=== PATIENT | female | born 1940 | race Caucasian/White ===

== ENCOUNTER 2019-11-10 21:16 | Emergency (ER) | payer MEDICARE, SELFPAY ==
[2019-11-10 21:29] VITALS: BP 132/65; PULSE 70; RESP 16; TEMP 37; O2SAT 97; BMI 34.1
--- NOTE | 2019-11-10 21:35 | CT_ITS ---
PROCEDURE: CT CERVICAL SPINE WO CON CLINICAL INDICATION: head/ear pain Neck pain, neck stiffness COMPARISON: No exams were available for comparison TECHNIQUE: Axial images obtained with sagittal and coronal reformats. All CT scans at the facility use one or more dose reduction, viz: automated exposure control, ma/kV adjustment per patient size (including targeted exams where dose is matched to indication, i.e. head), or iterative reconstruction technique. Axial spiral CT scanning performed of the cervical spine beginning at the base of the skull and continuing to the upper T-spine. 3-D multiplanar reconstruction with 3-D manipulation of volumetric data set in image rendering was completed by the radiologist and/or technologist with the supervision of the radiologist on independent workstation. FINDINGS: No fracture or dislocation. Multilevel cervical spondylosis. C2-C3: Mild right foraminal narrowing from uncovertebral hypertrophy with mild degenerative disc disease C3-C4: Degenerative disc disease C4-C5: Degenerative disc disease with subchondral cystic changes with bilateral foraminal narrowing from facet and uncovertebral hypertrophy. C5-C6: Degenerative disc disease with mild right foraminal narrowing. C6-C7: Degenerative disc disease. Sclerotic foci are present within the superior and posterior aspect of C7 vertebral body in the anterior aspect of C6 vertebral body. These may be due to bone islands. Bilateral calcified tonsillar crypts Severe TMJ arthritic changes bilaterally IMPRESSION: 1. No acute fracture. 2. Multilevel cervical spondylosis as detailed above. Dictated by: Paul Tolentino MD 11/11/2019 08:51 Electronically signed by Paul Tolentino MD in [place] 11/11/2019 08:51
--- NOTE | 2019-11-10 21:35 | CT_ITS ---
PROCEDURE: CT HEAD/BRAIN WO CON CLINICAL INDICATION: head/ear pain Headache COMPARISON: [facility] CT HEAD W/O CONTRAST from 10/16/2016 TECHNIQUE: Axial images obtained. All CT scans at the facility use one or more dose reduction, viz: automated exposure control, ma/kV adjustment per patient size (including targeted exams where dose is matched to indication, i.e. head), or iterative reconstruction technique. FINDINGS: No midline shift, mass effect, intracranial hemorrhage, hydrocephalus, or extra-axial fluid collection is evident. There is generalized atrophy with hypoattenuation of the periventricular white matter consistent with microangiopathic changes.. There is a partially calcified extra-axial mass in the right temporal region extending posteriorly from the sphenoid bone measuring 1.6 cm by 1.3 cm consistent with a partially calcified meningioma without mass effect. This is slightly increased in size previously measuring 1.4 x 0.9 cm. The calvarium has an unremarkable appearance. No mastoid effusion. No sinus air-fluid level. IMPRESSION: 1. No acute intracranial findings. 2. Partially calcified meningioma in the anterior aspect of the middle cranial fossa on the right which is slightly increased in size compared to 10/16/2016 but without edema or mass effect. Dictated by: Paul Tolentino MD 11/10/2019 23:16 Electronically signed by Paul Tolentino MD in [place] 11/10/2019 23:16
--- NOTE | 2019-11-10 21:38 | XR_ITS ---
PROCEDURE: XR CHEST 2V CLINICAL HISTORY: neck pain/jaw pain COMPARISON: CXR CHEST(2 VIEWS-NOT PORTABLE) from 10/16/2016 [id number] XR ribs RT min 3V w CXR1V from 04/27/2018 CXR2V XR chest 2V from 04/27/2018 FINDINGS: The cardiomediastinal silhouette and pulmonary vascularity are within normal limits. Chronic blunting of the right CP angle with atelectatic or fibrotic change in the right lung base laterally which does not appear significantly changed. No new areas of consolidation. No acute bony abnormalities. IMPRESSION: Chronic changes in the right lung base. No change with no acute finding Dictated by: Paul Tolentino MD 11/10/2019 23:18 Electronically signed by Paul Tolentino MD in [place] 11/10/2019 23:18
[2019-11-10 21:45] LABS: Basophils # 0.1 K/mm3 (0-0.2); Basophils % 0.7 % (0.1-2.0); Eosinophils # 0.2 K/mm3 (0.0-0.4); Eosinophils % 1.6 % (0.1-12.0); Hematocrit 36.7 % (37.0-47.0); Hemoglobin 12.3 g/dL (12.2-16.2); Lymphocytes # 1.9 K/mm3 (0.7-4.5); Lymphocytes % 20.5 % (10-50); Mean Corpuscular HGB Conc 33.4 g/dL (31.8-35.4); Mean Corpuscular Hemoglobin 31.2 pg (27.0-31.2); Mean Corpuscular Volume 93.7 fl (81-99); Mean Platelet Volume 7.4 fl (7.4-10.4); Monocytes # 0.6 K/mm3 (0.1-1.0); Monocytes % 6.4 % (1.7-9.3); Neutrophils # 6.6 K/mm3 (1.8-7.8); Neutrophils % 70.8 % (37.0-80.0); Platelet Count 268 K/mm3 (142-424); Red Blood Count 3.92 M/mm3 (4.20-5.40); Red Cell Distribution Width 13.6 % (11.5-17.5); White Blood Count 9.4 K/mm3 (4.8-10.8)
[2019-11-10 21:48] LABS: Chloride 106 mmol/L (98-107); Potassium 3.8 mmoL/L (3.5-5.1); Sodium 141 mmol/L (136-145)
[2019-11-10 21:51] LABS: Alanine Aminotransferase 6 U/L (12-78); Albumin/Globulin Ratio 1.1 (1.1-1.8); Alkaline Phosphatase 90 U/L (38-126); Anion Gap 9.8 mEq/L (5-15); Aspartate Amino Transferase 23 U/L (14-36); Bilirubin,Total 0.5 mg/dl (0.2-1.3); Blood Urea Nitrogen 22 mg/dl (7-17); Carbon Dioxide 29 mmol/L (22.0-30.0); Creatinine Clearance Estimated 64 mL/min (50-200); Estimated Glomerular Filt Rate 53 ml/min (>60); GFR (African American) 65 ML/MIN (>60); Globulin 3.5 g/dL (1.3-3.2); Total Protein,Serum 7.5 g/dl (6.3-8.2)
--- NOTE | 2019-11-10 21:51 | PC.NURSE ---
pt ambulatory and upright at this time without incident.
[2019-11-10 21:52] LABS: Glucose 102 mg/dl (74-100)
[2019-11-10 21:57] LABS: C-Reactive Protein 13.2 mg/L (0-4)
[2019-11-10 22:09] LABS: Troponin I < 0.01 ng/ml (0.00-0.034)
--- NOTE | 2019-11-10 22:09 | PC.NURSE ---
return from rad
--- NOTE | 2019-11-10 22:13 | ECG_ITS ---
APPROVED REPORT Exam: Resting ECG HR:72 bpm ECG Measurements Heart Rate 72 AXES [place] 164 P 70 QRSd 68 QRS -43 QT 398 T 1 QTc 435 <Conclusion> Sinus rhythm with occasional premature ventricular complexes and fusion complexes Left axis deviation Low voltage QRS Inferior changes - old Old anteroseptal changes Abnormal ECG Electronically signed by : Anthony Dc, 11/12/2019 14:14:47
[2019-11-10 22:18] LABS: Erythrocyte Sedimentation Rate 95 mm/hr (0-30)
[2019-11-10 22:20] VITALS: BP 124/59; PULSE 94; O2SAT 97
[2019-11-10 23:00] VITALS: BP 127/61; PULSE 87; RESP 16; O2SAT 98
--- NOTE | 2019-11-10 23:37 | HMH.EDNECK ---
ED Disposition Clinical Impression: Cervical radicular pain, Elevated erythrocyte sedimentation rate, Meningioma Disposition: Home, Self-Care Condition on Discharge: Good Instructions: DI for Neck Pain Additional Instructions: use meds and see pcp for follow up Prescriptions: predniSONE [Prednisone 20mg Tab] 20 mg PO BID #10 tab Transmission Status: Pending to [facility] Referrals: Azael Pritchard [Primary Care Provider] - - Critical Care Critical Care Time: No Attestation: On 11/10/19, the high probability of a clinically significant, sudden or life threatening deterioration of the following system(s) required my full and direct attention, intervention and personal management. The time I documented below is in addition to time spent performing reported procedures but includes the following listed in this critical care notation. Medical Decision Making - Medical Records Medical records reviewed: Yes: I reviewed the patient's medical records. - Angel Inquiry Pt receiving controlled substance: No Vital Signs: 11/10/19 21:29 11/10/19 22:20 Temperature 98.6 F Temperature Source Oral Pulse Rate [Right Brachial] 70 94 H Respiratory Rate 16 Blood Pressure [Right Arm] 132/65 124/59 L Blood Pressure Mean [Right Arm] 87 80 Blood Pressure Source [Right Arm] Automatic Cuff Automatic Cuff Blood Pressure Position [Right Arm] Sitting Supine 02 Sat by Pulse Oximetry 97 97 Oxygen Delivery Method Room Air Room Air - Lab Data Lab results reviewed: Yes: I reviewed the patient's lab results. Lab Results 11/10/19 21:35: WBC 9.4, RBC 3.92 L, Hgb 12.3, Hct 36.7 L, MCV 93.7, MCH 31.2, MCHC 33.4, RDW 13.6, Plt Count 268, MPV 7.4, Neut % (Auto) 70.8, Lymph % (Auto) 20.5, [place] % (Auto) 6.4, Eos % (Auto) 1.6, Baso % (Auto) 0.7, Neut # (Auto) 6.6, Lymph # (Auto) 1.9, [place] # (Auto) 0.6, Eos # (Auto) 0.2, Baso # (Auto) 0.1 11/10/19 21:35: Sodium 141, Potassium 3.8, Chloride 106, Carbon Dioxide 29, Anion Gap 9.8, BUN 22 H, Creatinine 1.00, Estimated Creat Clear 64, Estimated GFR 53 L, Est GFR ( Amer) 65, Glucose 102 H, Calcium 10.0, Total Bilirubin 0.5, AST 23, ALT 6 L, Alkaline Phosphatase 90, Troponin I < 0.01, C-Reactive Protein 13.2 H, Total Protein 7.5, Albumin 4.0, Globulin 3.5 H, Albumin/Globulin Ratio 1.1 11/10/19 21:35: ESR 95 H Result diagrams: 11/10/19 21:35 11/10/19 21:35 Orders (Tests/Meds): ED MEDICATIONS Generic Name Dose Route Start Last Admin Trade Name Freq PRN Reason Stop Dose Admin Sodium Chloride 1,000 mls @ 999 mls/hr 11/10/19 23:45 11/10/19 23:40 Sod Chlor 0.9% 1000ml Bag IV 11/11/19 00:45 999 mls/hr .Q1H1M CASI Administration Discontinued Medications Generic Name Dose Route Start Last Admin Trade Name Freq PRN Reason Stop Dose Admin Ketorolac Tromethamine 15 mg 11/10/19 23:38 11/10/19 23:40 Toradol 30mg/Ml Vial IV 11/10/19 23:39 15 mg ONCE ONE Administration Methylprednisolone Sodium Succinate 125 mg 11/10/19 23:38 11/10/19 23:40 Solu-Medrol 125mg/2ml Vial IV 11/10/19 23:39 125 mg ONCE ONE Administration Morphine Sulfate 1 mg 11/10/19 23:38 11/10/19 23:40 Morphine 4mg/Ml Syringe IV 11/10/19 23:39 1 mg ONCE ONE Administration ORDERS Category Date Time Status CT cervical spine wo con Stat Cat Scan 11/10/19 21:35 Taken Troponin I Q3H Lab 11/11/19 00:45 Ordered Troponin I Q3H Lab 11/11/19 03:45 Ordered - Radiology Data #1 Image(s): Chest Image Reviewed: Yes I reviewed the patient's radiology image Preliminary Findings: Normal/NAD - CT Data CT Scan: Head, C-Spine Time Received: 00:[address] Reviewed: Yes: I have viewed the radiologist's interpretation Preliminary Findings: Abnormal (see report ) - ECG Data Tracing #1 Normal Sinus Rhythm: Yes Ischemic changes: non-specific ST-T wave changes Neck Pain/Injury HPI - General Chief Complaint: Ear Stated Complaint: NECK PAIN Time Seen by Prov
[2019-11-11] VITALS: BP 131/71; PULSE 84; RESP 16; O2SAT 97
[2019-11-11 00:34] VITALS: BP 123/64; PULSE 83; O2SAT 97
--- NOTE | 2019-11-11 00:39 | INFXCTL.NOTE ---
reverse soft C-Collar place on pt
[2019-11-11 00:44] VITALS: BP 108/79; PULSE 71; RESP 16; TEMP 36.8; O2SAT 97
== END 2019-11-11 00:48 | disposition home or self-care (01) ==
PROVIDERS: Emergency Provider Emergency Medicine; PCP Internal Medicine
DX: M54.2 Cervicalgia (principal); D32.9 Benign neoplasm of meninges, unspecified; R70.0 Elevated erythrocyte sedimentation rate; G20 Parkinson's disease; K21.9 Gastro-esophageal reflux disease without esophagitis; I10 Essential (primary) hypertension; Z79.899 Other long term (current) drug therapy; Z88.0 Allergy status to penicillin; Z88.2 Allergy status to sulfonamides; Z85.038 Personal history of other malignant neoplasm of large intestine; Z90.49 Acquired absence of other specified parts of digestive tract; Z90.79 Acquired absence of other genital organ(s)
CPT/HCPCS: 70450; 71046; 72125; 80053; 84484; 85025; 85651; 86140; 93005; 96365; 96375; 99284

== ENCOUNTER → 2019-12-06 11:18 | Outpatient (CLI) | payer MEDICARE, SELFPAY ==
[2019-12-06 12:21] LABS: Chloride 98 mmol/L (98-107); Sodium 136 mmol/L (136-145)
[2019-12-06 12:24] LABS: Blood Urea Nitrogen 32 mg/dl (7-17); Calcium 9.7 mg/dl (8.4-10.2); Carbon Dioxide 34 mmol/L (22.0-30.0); Estimated Glomerular Filt Rate 60 ml/min (>60); GFR (African American) 73 ML/MIN (>60); Glucose 76 mg/dl (74-100)
[2019-12-06 12:30] LABS: Basophils % 0.2 % (0.1-2.0); Eosinophils % 0.5 % (0.1-12.0); Hematocrit 41.1 % (37.0-47.0); Hemoglobin 13.7 g/dL (12.2-16.2); Lymphocytes # 2.1 K/mm3 (0.7-4.5); Lymphocytes % 25.3 % (10-50); Mean Corpuscular HGB Conc 33.4 g/dL (31.8-35.4); Mean Corpuscular Hemoglobin 31.3 pg (27.0-31.2); Mean Corpuscular Volume 93.8 fl (81-99); Mean Platelet Volume 7.1 fl (7.4-10.4); Monocytes # 0.6 K/mm3 (0.1-1.0); Monocytes % 6.9 % (1.7-9.3); Neutrophils # 5.7 K/mm3 (1.8-7.8); Neutrophils % 67.1 % (37.0-80.0); Platelet Count 291 K/mm3 (142-424); Red Blood Count 4.38 M/mm3 (4.20-5.40); Red Cell Distribution Width 13.8 % (11.5-17.5); White Blood Count 8.5 K/mm3 (4.8-10.8)
[2019-12-06 12:49] LABS: Coronavirus 19 IgG Antibody Negative (Negative); Coronavirus 19 IgM Antibody Negative (Negative)
== END ==
PROVIDERS: Visit Provider Surgery
DX: R70.0 Elevated erythrocyte sedimentation rate (principal); Z01.818 Encounter for other preprocedural examination
CPT/HCPCS: 36415; 80048; 85025; 86328

== ENCOUNTER 2019-12-07 08:03 | Day surgery (SDC) | payer MEDICARE, SELFPAY ==
--- NOTE | 2019-12-05 12:32 | SUR.PREOP ---
12/05/2019 @ 1230--PHONE CALL MADE TO PATIENT. PATIENT UNDERSTANDS THAT LAB WORK AND COVID TESTING NEEDS TO BE COMPLETED @ 1100 ON 12/06/2019. PATIENT UNDERSTANDS IF LAB WORK AND COVID-19 TESTS ARE NOT COMPLETED BY 12PM ON THAT DATE, THE SURGERY SCHEDULED WILL BE CANCELLED AND RESCHEDULED FOR ANOTHER TIME.
[2019-12-07] VITALS (11 sets, daily range): BP systolic 122–168; BP diastolic 73–90; PULSE 63–77; RESP 16–18; TEMP 36.3–36.6; O2SAT 93–98; BMI 35.2
--- NOTE | 2019-12-07 09:17 | HMH.ANESCL ---
[facility] Anesthesia Checklist - Patient Identification Patient Identification: Arm Band - Structural Data Admitted From: Home Planned Operative Procedure/s: temporal artery biopsy Consent for Planned Operative Procedure(s) Verified: Yes Verified Documents: Surgical Consent, History and Physical - NPO Status Verified Time NPO: 00:00 - Additional verifications Anesthesia Reactions: Yes (hard time waking up after) Hx Blood Transfusions: Yes Blood Transfusion Reaction: No - Airway Assessment C-Spine Mobility Assessed: Yes TMJ Mobility Assessed: Yes Dentition: Good Dentition (upper dentures, lower intact) - Neurological Assessment Level of Consciousness: Awake, Alert - Anesthesia Plan Anesthesia Risk discussed: Yes Anesthesia Plan: Verified ASA Class: III Anesthesia Type: General [facility] History I have reviewed the patient's past medical history: Yes Medical History: Reports:: Atrial Fibrillation (hx afib after hernia repair), Cancer (colon), Depression, Gastroesophageal Reflux Disease(GERD), Lung Disease (homar-cpap has) Denies:: Diabetes Mellitus Type 1, Diabetes Mellitus Type 2, Internal Pacemaker, MRSA, Seizures *Have you ever received a pneumonia vaccine?: No *Have you received a flu vaccine this season?: No Other Medical History: Reports: Thyroid Disease, Other. Denies: Blood Transfusion Reaction Anesthesia experience/problems:: nac Other Surgeries: Yes: Cancer Surgery, Cholecystectomy, Colonoscopy, Colon Resection, Hysterectomy-Total, Other. No: Appendectomy, , Pacemaker, Thyroidectomy Amputation: No Fractures: No - *Social History Educational Level: Completed High School Smoking Status: Never smoker Alcohol Intake: never Substance Use Type: denies use *Occupational Status:: retired Housing: house Household Members: none *Travel in the last 8 weeks: None - Psychiatric History Pschychiatric History:: Reports:: Depression Family Hx:: Cancer, Hypertension
--- NOTE | 2019-12-07 13:32 | HMH.ANESI ---
[facility] Anesthesia Record Part I Intake, IV Amount: 900 Estimated blood loss (mL): 10 Urine output (mL): 0 Blood Products used (#): none Blood Pressure: 168/89 SaO2: 93 Pulse Rate: 77 Respiratory Rate: 18 Temperature: 97.5 F Patient is:: Drowsy, Stable Stable to PACU at:: 13:29
--- NOTE | 2019-12-07 13:56 | P.OP_ITS ---
Date of procedure: 12/07/19 Pre-op Diagnosis:: Elevated sed rate Post-op Diagnosis:: Same Procedure performed:: Right temporal artery biopsy Surgeon:: Yaakov Lan MD [employer] TE[employer]ER:: Anthony Linares Anesthesia: LMA Estimated blood loss (mL): 30 Clinical Note:: Patient is an 79-year-old female with history of Parkinson's and meningioma referred by Dr. Azael Pritchard for temporal artery biopsy. 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 Recently she has had some neck pains and ear pain and had been treated without success for inner ear infections. She denies any headaches. Pain does seem to be worse when she is eating and chewing. Denies visual changes. She had presented to the emergency department on 11/10/2019 due to the severity of her symptoms. She underwent CT scan which revealed previously noted meningioma. She was noted to have an elevated sed rate of 95 as well as elevated C-reactive protein. She has been treated with steroids and muscle relaxants. She was sent for surgical consultation for temporal artery biopsy to evaluate for possible polymyalgia rheumatica or giant cell arteritis. Operative findings:: She had very attenuated vessel Operative note:: Patient was taken to the operating room. She was positioned in a supine position. General anesthesia was induced via LMA. The right upper face and temporal area were prepped and draped in the standard surgical fashion. Please note that prior to doing so a hand-held Doppler was used to identify a faint signal consistent with the temporal artery. This was marked with indelible ink. Incision was made in the region of the skin that had been marked preoperatively and the superior preauricular location. Dissection was carried down through subcutaneous tissues and superficial fascia. Vein was encountered. However identification and localization of definitive artery was difficult. There were numerous venous branches and some of these were ligated with fine Prolene sutures. A couple of micro hemoclips were applied. With repeated use of the hand-held Doppler device a faint signal was encountered. This required extension of the incision inferiorly. Ultimately what appeared to be very attenuated arterial branch adherent to adjacent to the vein was encountered. This was faintly pulsatile. A portion was dissected free. It was ligated proximally and distally with 3-0 Prolene suture ligature. Intervening portion was excised. This was as much of a portion of the artery which could be feasibly excised given its attenuated nature. This was sent off as specimen. There appeared to be good hemostasis. Subdermal tissues were closed with several interrupted 3-0 Vicryl sutures. Skin was closed with a total of eight 6-0 nylon sutures. Dressing was applied. Condition: stable Disposition: PACU Specimens:: Temporal artery biopsy Complications:: None immediately apparent
--- NOTE | 2019-12-07 14:17 | PC.NURSE ---
1340-pt taking sips of water w/out difficulty, pt denies nausea or pain, vss 1354-detailed report called to GILBERT Aleman 1357-pt transported to post op via stretcher with sammy rails up and left in care of GILBERT Aleman with bed locked in lowest position, vss, pt stable
--- NOTE | 2019-12-07 14:27 | P.PN_ITS ---
[facility] Anesthesia Record Part II Discharge Time: 13:59 Destination: Surgical Day Care (OP Surgery) PACU nurse assessment reviewed?: Yes Patient Condition:: Good Anesthesia Complications:: None Swallowing reflex intact?: Yes Cyanosis?: No Blood Pressure: 152/79 Pulse Rate: 63 Temperature: 97.4 F Mental Status: Alert & Oriented Pain level:: 0 Nausea and/or vomitting:: None Intake, IV Amount: 0
== END 2019-12-07 14:45 | disposition home or self-care (01) ==
PROVIDERS: PCP Internal Medicine; Visit Provider Surgery
PROC: (CPT 37609; principal; 2019-12-07 09:45)
DX: G20 Parkinson's disease (principal); D32.9 Benign neoplasm of meninges, unspecified; Z88.0 Allergy status to penicillin; Z88.2 Allergy status to sulfonamides; Z88.8 Allergy status to other drugs, medicaments and biological substances; Z79.899 Other long term (current) drug therapy; F32.9 Major depressive disorder, single episode, unspecified; K21.9 Gastro-esophageal reflux disease without esophagitis; I10 Essential (primary) hypertension; Z85.038 Personal history of other malignant neoplasm of large intestine; Z90.49 Acquired absence of other specified parts of digestive tract; E89.0 Postprocedural hypothyroidism
CPT/HCPCS: 37609; 88305; 96374

== ENCOUNTER 2019-12-19 00:39 | Observation (INO) | payer MEDICARE, SELFPAY ==
[2019-12-19] VITALS (13 sets, daily range): BP systolic 133–169; BP diastolic 73–89; PULSE 70–76; RESP 12–18; TEMP 36.3–36.8; O2SAT 90–95; BMI 34.0; BMI 34.3
--- NOTE | 2019-12-19 01:07 | ECG_ITS ---
APPROVED REPORT Exam: Resting ECG HR:75 bpm ECG Measurements Heart Rate 75 AXES VT 158 P 71 QRSd 96 QRS -31 QT 394 T 53 QTc 439 <Conclusion> Normal sinus rhythm Left axis deviation,LAHB Minimal voltage criteria for LVH, may be normal variant Motion Artifact Abnormal ECG Electronically signed by : Azael Pritchard, 12/19/2019 12:25:44
--- NOTE | 2019-12-19 01:08 | XR_ITS ---
PROCEDURE: XR CHEST 2V CLINICAL HISTORY: SOB shortness of breath COMPARISON: No exams were available for comparison FINDINGS: The cardiomediastinal silhouette and pulmonary vascularity are within normal limits. There are chronic changes in the right lung base with blunting of the right CP angle. Atelectatic or fibrotic changes also noted. The left lung is clear. No acute bony abnormalities. IMPRESSION: Chronic changes in the right lung base otherwise negative Dictated by: Paul Tolentino MD 12/19/2019 07:31 Electronically signed by Paul Tolentino MD in [place] 12/19/2019 07:31
[2019-12-19 01:13] LABS: Basophils % 0.5 % (0.1-2.0); Eosinophils # 0.1 K/mm3 (0.0-0.4); Eosinophils % 0.7 % (0.1-12.0); Hematocrit 40.7 % (37.0-47.0); Hemoglobin 13.9 g/dL (12.2-16.2); Lymphocytes # 1.5 K/mm3 (0.7-4.5); Lymphocytes % 16.4 % (10-50); Mean Corpuscular HGB Conc 34.1 g/dL (31.8-35.4); Mean Corpuscular Hemoglobin 32.1 pg (27.0-31.2); Mean Corpuscular Volume 94.1 fl (81-99); Mean Platelet Volume 7.4 fl (7.4-10.4); Monocytes # 0.6 K/mm3 (0.1-1.0); Monocytes % 6.3 % (1.7-9.3); Neutrophils # 6.8 K/mm3 (1.8-7.8); Platelet Count 245 K/mm3 (142-424); Red Blood Count 4.32 M/mm3 (4.20-5.40); Red Cell Distribution Width 14.3 % (11.5-17.5)
--- NOTE | 2019-12-19 01:16 | HMH.EDSOB ---
ED Disposition Clinical Impression: Obesity (BMI 30.0-34.9), Hypercalcemia Chest pain Qualifiers: Chest pain type: precordial pain Qualified Code(s): R07.2 - Precordial pain UTI (urinary tract infection) Qualifiers: Urinary tract infection type: site unspecified Hematuria presence: without hematuria Qualified Code(s): N39.0 - Urinary tract infection, site not specified Disposition: Admitted as Observation Condition on Discharge: Good Referrals: Azael Pritchard [Primary Care Provider] - - Critical Care Critical Care Time: No Attestation: On 12/19/19, the high probability of a clinically significant, sudden or life threatening deterioration of the following system(s) required my full and direct attention, intervention and personal management. The time I documented below is in addition to time spent performing reported procedures but includes the following listed in this critical care notation. Medical Decision Making - Medical Records Medical records reviewed: Yes: I reviewed the patient's medical records. - Angel Inquiry Pt receiving controlled substance: No Vital Signs: 12/19/19 00:40 12/19/19 01:10 12/19/19 02:00 Temperature 98.1 F Temperature Source Oral Pulse Rate [Left Radial] 75 76 74 Respiratory Rate 17 18 16 Blood Pressure [Right Arm] 169/82 H 159/89 H 138/86 Blood Pressure Mean [Right Arm] 111 112 103 Blood Pressure Source [Right Arm] Automatic Cuff Automatic Cuff Automatic Cuff Blood Pressure Position [Right Arm] Sitting Supine Sitting 02 Sat by Pulse Oximetry 94 L 94 L 93 L Oxygen Delivery Method Room Air Room Air Room Air - Lab Data Lab results reviewed: Yes: I reviewed the patient's lab results. Lab Results 12/19/19 00:55: Troponin I < 0.01 12/19/19 00:55: WBC 9.0, RBC 4.32, Hgb 13.9, Hct 40.7, MCV 94.1, MCH 32.1 H, MCHC 34.1, RDW 14.3, Plt Count 245, MPV 7.4, Neut % (Auto) 76.0, Lymph % (Auto) 16.4, [place] % (Auto) 6.3, Eos % (Auto) 0.7, Baso % (Auto) 0.5, Neut # (Auto) 6.8, Lymph # (Auto) 1.5, [place] # (Auto) 0.6, Eos # (Auto) 0.1, Baso # (Auto) 0.0 12/19/19 00:55: Sodium 140, Potassium 3.4 L, Chloride 99, Carbon Dioxide 32 H, Anion Gap 12.4, BUN 36 H, Creatinine 0.80, Estimated Creat Clear 64, Estimated GFR 69, Est GFR ( Amer) 84, Glucose 124 H, Calcium 11.6 H, Total Bilirubin 0.4, AST 32, ALT 10 L, Alkaline Phosphatase 118, Total Protein 7.7, Albumin 4.2, Globulin 3.5 H, Albumin/Globulin Ratio 1.2 12/19/19 00:55: Lactate 1.3 12/19/19 00:55: NT-Pro-B Natriuret Pep 104 12/19/19 01:40: Urine Color Yellow, Urine Appearance Clear, Urine pH 5.5, Ur Specific [place] >= 1.030, Urine Protein Negative, Urine Glucose (UA) Negative, Urine Ketones Negative, Urine Blood Negative, Urine Nitrate Negative, Urine Bilirubin Negative, Urine Urobilinogen 0.2, Ur Leukocyte Esterase Negative, Urine WBC 10-20 Result diagrams: 12/19/19 00:55 12/19/19 00:55 Orders (Tests/Meds): ED MEDICATIONS Discontinued Medications Generic Name Dose Route Start Last Admin Trade Name Bobbi PRN Reason Stop Dose Admin Methylprednisolone Sodium Succinate 125 mg 12/19/19 01:09 12/19/19 01:20 Solu-Medrol 125mg/2ml Vial IV 12/19/19 01:10 125 mg ONCE ONE Administration ORDERS Category Date Time Status XR chest 2V Stat Exams 12/19/19 01:08 Taken Troponin I Q3H Lab 12/19/19 04:15 Ordered Troponin I Q3H Lab 12/19/19 07:15 Ordered Blood Culture Stat Micro 12/19/19 00:55 Received Urine Culture Stat Micro 12/19/19 01:40 Received - Radiology Data #1 Image(s): Chest Image Reviewed: Yes I reviewed the patient's radiology image Preliminary Findings: Abnormal (chronic changes ) - ECG Data Tracing #1 Normal Sinus Rhythm: Yes Ischemic changes: non-specific ST-T wave changes - Physician Consults Physician Consulted: gal Reason -: Admission - GIRMA Score for Non-Stemi Age of Patient: 80-89 years old Heart Rate: 70-89 bpm Systolic Blood Pressure: 160-199 mmHg Serum Creati
[2019-12-19 01:20] LABS: Alanine Aminotransferase 10 U/L (12-78); Albumin Level 4.2 g/dl (3.5-5.0); Albumin/Globulin Ratio 1.2 (1.1-1.8); Alkaline Phosphatase 118 U/L (38-126); Anion Gap 12.4 mEq/L (5-15); Aspartate Amino Transferase 32 U/L (14-36); Bilirubin,Total 0.4 mg/dl (0.2-1.3); Blood Urea Nitrogen 36 mg/dl (7-17); Calcium 11.6 mg/dl (8.4-10.2); Carbon Dioxide 32 mmol/L (22.0-30.0); Chloride 99 mmol/L (98-107); Creatinine Clearance Estimated 64 mL/min (50-200); Estimated Glomerular Filt Rate 69 ml/min (>60); GFR (African American) 84 ML/MIN (>60); Globulin 3.5 g/dL (1.3-3.2); Glucose 124 mg/dl (74-100); Lactic Acid 1.3 mmol/L (0.7-2.1); Potassium 3.4 mmoL/L (3.5-5.1); Sodium 140 mmol/L (136-145); Total Protein,Serum 7.7 g/dl (6.3-8.2)
[2019-12-19 01:35] LABS: Troponin I < 0.01 ng/ml (0.00-0.034)
[2019-12-19 01:46] LABS: Microscopic, Urine URINE MICROSCOPIC (MICROSCOPIC)
[2019-12-19 01:47] LABS: Appearance,Urine CLEAR (Clear); Bilirubin,Urine Negative (Negative); Blood, Urine Negative (Negative); Color,Urine YELLOW (Yellow); Glucose,Urine (UA) Negative (Negative); Ketones,Urine Negative (Negative); Leukocyte Esterase,Urine Negative (Negative); Nitrate,Urine Negative (Negative); PH,Urine 5.5 (5.0-8.5); Protein,Urine Negative (Negative); Specific Gravity, Urine >= 1.030 (1.005-1.030); Urobilinogen,Urine 0.2 EU/dl (0.2)
[2019-12-19 02:04] LABS: NT Pro Brain Natriuretic Pep. 104 pg/mL (0-450)
--- NOTE | 2019-12-19 02:54 | PC.NURSE ---
call out to dr santo at this time
[2019-12-19 03:14] LABS: Adenovirus,PCR Not Detected (NotDetected); Bordetella Pertussis Not Detected (NotDetected); Chlamydophila Pneumoniae, PCR Not Detected (NotDetected); Coronavirus 19, PCR Not Detected (NotDetected); Coronavirus 229E Not Detected (NotDetected); Coronavirus NL63 Not Detected (NotDetected); Coronavirus OC43 Not Detected (NotDetected); Coronovirus HKU1,PCR Not Detected (NotDetected); Human Metapneumovirus Not Detected (NotDetected); Influenza A, PCR Not Detected (NotDetected); Influenza AH1, 2009 Not Detected (NotDetected); Influenza AH1, PCR Not Detected (NotDetected); Influenza AH3,PCR Not Detected (NotDetected); Influenza B, PCR Not Detected (NotDetected); Mycoplasma Pneumoniae, PCR Not Detected (NotDected); Parainfluenza 1, PCR Not Detected (NotDetected); Parainfluenza 2, PCR Not Detected (NotDetected); Parainfluenza 3, PCR Not Detected (NotDetected); Parainfluenza 4, PCR Not Detected (NotDetected); Respiratory Syncytial Virus Not Detected (NotDetected); Rhinovirus/Enterovirus Not Detected (NotDetected)
[2019-12-19 03:26] LABS: Coronavirus 19 IgG Antibody Positive (Negative)
[2019-12-19 03:27] LABS: Coronavirus 19 IgM Antibody Positive (Negative)
--- NOTE | 2019-12-19 04:33 | PC.NURSE ---
report called to GILBERT Ogden
[2019-12-19 05:12] LABS: Troponin I < 0.01 ng/ml (0.00-0.034)
--- NOTE | 2019-12-19 07:07 | P.CONPHA_ITS ---
[facility] VTE Monitoring - Patient Demographics Admission date: 12/19/19 Report Date: 12/19/19 Time: 07:08 Allergies/Adverse Reactions: Patient Allergies nitrofurantoin [From MACROBID] Allergy (Unknown, Verified 12/19/19 01:13) Penicillins [PENICILLINS] Allergy (Unknown, Verified 12/19/19 01:13) Sulfa (Sulfonamide Antibiotics) [SULFA (SULFONAMIDE ANTIBIOTICS)] Allergy (Unknown, Verified 12/19/19 01:13) Height: 1.63 m Weight: 91.285 kg Patient Problems: Current Active Problems Chest pain (Acute) Obesity (BMI 30.0-34.9) (Acute) Hypercalcemia (Acute) UTI (urinary tract infection) (Acute) - VTE Risk Labs: VTE Related Lab Results Hgb 13.9 g/dL (12.2-16.2) 12/19/19 00:55 Hct 40.7 % (37.0-47.0) 12/19/19 00:55 Plt Count 245 K/mm3 (142-424) 12/19/19 00:55 BUN 36 mg/dl (7-17) H 12/19/19 00:55 Creatinine 0.80 mg/dl (0.52-1.04) 12/19/19 00:55 Estimated Creat Clear 64 mL/min (50-200) 12/19/19 00:55 Clinical Trial Participant: No - Prophylaxis VTE Prophylaxis Ordered?: Yes Types of VTE Prophylaxis: TEDS Knee High
--- NOTE | 2019-12-19 07:52 | HMH.PHAINT ---
Home [facility]
--- NOTE | 2019-12-19 08:00 | CA_ITS ---
APPROVED REPORT EXAM: Comprehensive 2D, Doppler, and color-flow Echocardiogram Hvac Project Engineer: Cintia Posadas CRT Ht: 5 ft 4 in Wt: 198lbs BSA: 1.95 BP: 138/86 mmHg Indications: Chest Pain, Shortness of Breath, Atrial Fibrillation, GERD, + COVID 19 2D Dimensions LVOT 2.05 cm (M/F) 1.5-2.5 LV Diastology E/A Ratio 0.75 Mitral Valve MV A Velocity 99.00 (40-130 cm/s) Left Ventricle Left atrium is mildly enlarged, left ventricle is normal size, mild concentric left ventricular hypertrophy, visually estimated ejection fraction 55 to 60% with no regional wall motion abnormality, grade 1 diastolic dysfunction seen without tissue Doppler evidence of raise left atrial pressure. Right Ventricle Right atrium and right ventricular normal size and contractility. Aortic Valve Aortic valve is thickened and calcified leaflet chordae display good mobility, there is no aortic stenosis or aortic insufficiency. Mitral Valve Mitral valve leaflets are minimally thickened, there is no mitral stenosis, there is mild mitral regurgitation. Tricuspid Valve Tricuspid valve is grossly normal, there is mild tricuspid regurgitation, tricuspid regurgitation jet velocity is inadequate for calculation of the right ventricular systolic pressure. Pulmonic Valve Pulmonic valve is poorly visualized. Great Vessels Aortic root is normal size. Pericardium No significant pericardial effusion noted. Conclusion 1. Mildly enlarged left atrium, normal left ventricular size, mild concentric left ventricular hypertrophy, visually estimated ejection fraction of 55 to 60% with no regional wall motion abnormality, grade 1 diastolic dysfunction seen without tissue Doppler evidence of raise left atrial pressure. 2. Mild mitral and tricuspid regurgitation. 3. No significant pericardial effusion noted. Electronically signed by : Armando Hernandez, 12/19/2019 17:15:03
[2019-12-19 08:29] LABS: Basophils % 0.2 % (0.1-2.0); Eosinophils % 0.2 % (0.1-12.0); Hematocrit 38.3 % (37.0-47.0); Lymphocytes # 0.8 K/mm3 (0.7-4.5); Lymphocytes % 9.8 % (10-50); Mean Corpuscular Volume 94.1 fl (81-99); Mean Platelet Volume 7.3 fl (7.4-10.4); Monocytes # 0.1 K/mm3 (0.1-1.0); Monocytes % 1.6 % (1.7-9.3); Neutrophils # 6.7 K/mm3 (1.8-7.8); Neutrophils % 88.1 % (37.0-80.0); Platelet Count 229 K/mm3 (142-424); Red Blood Count 4.07 M/mm3 (4.20-5.40); White Blood Count 7.7 K/mm3 (4.8-10.8)
[2019-12-19 08:30] LABS: Chloride 100 mmol/L (98-107); MANUAL DIFFERENTIAL MANUAL DIFFERENTIAL (MANUAL DIFF); Sodium 136 mmol/L (136-145)
[2019-12-19 08:33] LABS: Blood Urea Nitrogen 32 mg/dl (7-17); Carbon Dioxide 31 mmol/L (22.0-30.0); Creatinine Clearance Estimated 65 mL/min (50-200); Estimated Glomerular Filt Rate 81 ml/min (>60); GFR (African American) 97 ML/MIN (>60)
[2019-12-19 08:34] LABS: Calcium 10.5 mg/dl (8.4-10.2); Chol/HDL Ratio 2.2 (1-3.5); Cholesterol 239 mg/dl (140-200); Glucose 140 mg/dl (74-100); HDL Cholesterol 109 mg/dl (40-60); Triglycerides 52 mg/dl (30-150); VLDL Cholesterol 10 mg/dL (0-40)
[2019-12-19 08:44] LABS: Direct LDL Cholesterol 107.83 mg/dL (100-129)
--- NOTE | 2019-12-19 08:46 | HMH.HPDC ---
General - General Admission date:: 12/19/19 Discharge date: 12/19/19 *Admission Date: 12/19/19 *Chief complaint: Cough and chest pain *History of present illness: 79-year-old white female who is in vigorous and active health, came to the emergency department because of cough and congestion, also had some noncardiac type chest pain. 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 She had a positive COVID antibody and was admitted overnight for further diagnostic testing. [facility] History I have reviewed the patient's past medical history: Yes Medical History: Reports:: Atrial Fibrillation, Cancer, Congestive Heart Failure, Depression, Gastroesophageal Reflux Disease(GERD), Hypertension, Lung Disease Denies:: Diabetes Mellitus Type 1, Diabetes Mellitus Type 2, Internal Pacemaker, MRSA, Seizures *Have you ever received a pneumonia vaccine?: Yes *Have you received a flu vaccine this season?: No Other Medical History: Reports: Thyroid Disease, Other. Denies: Blood Transfusion Reaction Other Surgeries: Yes: Cancer Surgery, Cholecystectomy, Colonoscopy, Colon Resection, Hysterectomy-Total, Other. No: Appendectomy, , Pacemaker, Thyroidectomy Amputation: No Fractures: No - *Social History Last grade of school completed: 11th or 12th Smoking Status: Never smoker Alcohol Intake: never Substance Use Type: denies use *Occupational Status:: employed Housing: house Household Members: none *Travel in the last 8 weeks: None - Psychiatric History Pschychiatric History:: Reports:: Depression Family Hx:: Cancer, Diabetes, Heart Attack, Hypertension, Mental illness Review of Systems - Review of Systems Review of systems:: pertinent systems reviewed and negative unless documented below - *Neurologic Denies localized weakness, Denies headache(s), Denies seizure-like activity Exam Vital signs and Labs for Last 24 Hours: Temp Pulse Resp BP Pulse Ox 97.5 F L 72 16 133/73 92 L 12/19/19 08:00 12/19/19 08:00 12/19/19 08:00 12/19/19 08:00 12/19/19 08:00 Laboratory Results - last 24 hr 12/19/19 00:55: Troponin I < 0.01 12/19/19 00:55: WBC 9.0, RBC 4.32, Hgb 13.9, Hct 40.7, MCV 94.1, MCH 32.1 H, MCHC 34.1, RDW 14.3, Plt Count 245, MPV 7.4, Neut % (Auto) 76.0, Lymph % (Auto) 16.4, [place] % (Auto) 6.3, Eos % (Auto) 0.7, Baso % (Auto) 0.5, Neut # (Auto) 6.8, Lymph # (Auto) 1.5, [place] # (Auto) 0.6, Eos # (Auto) 0.1, Baso # (Auto) 0.0 12/19/19 00:55: Sodium 140, Potassium 3.4 L, Chloride 99, Carbon Dioxide 32 H, Anion Gap 12.4, BUN 36 H, Creatinine 0.80, Estimated Creat Clear 64, Estimated GFR 69, Est GFR ( Amer) 84, Glucose 124 H, Calcium 11.6 H, Total Bilirubin 0.4, AST 32, ALT 10 L, Alkaline Phosphatase 118, Total Protein 7.7, Albumin 4.2, Globulin 3.5 H, Albumin/Globulin Ratio 1.2 12/19/19 00:55: Lactate 1.3 12/19/19 00:55: NT-Pro-B Natriuret Pep 104 12/19/19 00:55: SARS-CoV-2 IgG Ab (Rapid) Positive A, SARS-CoV-2 IgM Ab (Rapid) Positive A 12/19/19 01:40: Urine Color Yellow, Urine Appearance Clear, Urine pH 5.5, Ur Specific [place] >= 1.030, Urine Protein Negative, Urine Glucose (UA) Negative, Urine Ketones Negative, Urine Blood Negative, Urine Nitrate Negative, Urine Bilirubin Negative, Urine Urobilinogen 0.2, Ur Leukocyte Esterase Negative, Urine WBC 10-20 12/19/19 03:00: Chlamy pneumoniae PCR Not detected, Adenovirus (PCR) Not detected, B. pertussis DNA (PCR) Not detected, Coronavirus OC43 (PCR) Not detected, Coronavirus HKU1 (PCR) Not detected, Coronavirus 229E (PCR) Not detected, COVID-19 PCR Not detected, Coronavirus NL63 (PCR) Not detected, Human Metapneumovir PCR Not detected, Influenza A (H1) PCR Not detected, Influ A (H1N1/09) PCR Not detected, Influenza A (H3) PCR Not detected, Influenza Type A (PCR) Not detected, Influenza Type B (PCR) Not detected, M. pneumoniae (PCR) Not detected, Parainfluenza 1 (PCR) Not detected, Parainfluenza 2 (PCR) Not detected, Parainfluenza 3 (PCR) Not detected, Parainfluenz
[2019-12-19 08:52] LABS: Troponin I < 0.01 ng/ml (0.00-0.034)
[2019-12-19 09:01] LABS: Lymphocytes % 7 % (10-50); Monocytes % 1 % (2-9); Neutrophils % 86 % (42-76); Total Cells Counted 100
[2019-12-19 09:02] LABS: Platelet Estimate Normal; RBC Morphology Normal
--- NOTE | 2019-12-19 10:16 | PC.NURSE ---
Addendum entered by Kiel Oconnor RN 12/19/19 10:19: THIS RN DID NOT ADMINISTER MEDICATIONS DUE TO PATIENT DID NOT WANT TO TAKE THEM HERE AND FORGET WHICH ONE WAS TAKEN WHEN SHE ARRIVED AT HOME. Original Note: THIS RN PROVIDED PATIENT WITH D/C INSTRUCTIONS. PATIENT WAS INFORMED TO HAVE LAB TESTS DONE IN ONE WEEK OUT PATIENT. PATIENT VERBALIZED AN UNDERSTANDING. THIS RN EDUCATED PATIENT IN REGARDS TO HELP PREVENT UTI, TO WASH HANDS AFTER EVERY BATHROOM USE, TO WIPE FROM FRONT TO BACK AND TO DRINK PLENTY OF FLUIDS. PATIENT VERBALIZED AN UNDERSTANDING. NO OTHER NEEDS AT THIS TIME.
== END 2019-12-19 10:12 | disposition home or self-care (01) ==
LOC: ER 03:08 → ICU 05:52
PROVIDERS: Admitting Provider Internal Medicine Adolescent Medicine; Emergency Provider Emergency Medicine; PCP Internal Medicine; Visit Provider Internal Medicine Adolescent Medicine
DX: E83.52 Hypercalcemia (principal); Z20.828 Contact with and (suspected) exposure to other viral communicable diseases; I48.91 Unspecified atrial fibrillation; I50.9 Heart failure, unspecified; I11.0 Hypertensive heart disease with heart failure; J44.9 Chronic obstructive pulmonary disease, unspecified; E03.9 Hypothyroidism, unspecified; Z88.0 Allergy status to penicillin; Z88.1 Allergy status to other antibiotic agents; Z88.2 Allergy status to sulfonamides; Z79.899 Other long term (current) drug therapy
CPT/HCPCS: 71046; 80048; 80053; 80061; 81001; 83605; 83735; 83880; 84484; 85007; 85025; 86328; 87040; 87086; 87581; 87633; 87798; 93005; 93306; 96365; 96375; 99285; G0378

== ENCOUNTER → 2019-12-26 10:04 | Outpatient (CLI) | payer MEDICARE, SELFPAY ==
[2019-12-26 10:10] LABS: Microscopic, Urine URINE MICROSCOPIC (MICROSCOPIC)
[2019-12-26 10:29] LABS: Appearance,Urine CLEAR (Clear); Bilirubin,Urine Negative (Negative); Blood, Urine Negative (Negative); Color,Urine YELLOW (Yellow); Glucose,Urine (UA) Negative (Negative); Ketones,Urine Negative (Negative); Leukocyte Esterase,Urine Negative (Negative); Nitrate,Urine Negative (Negative); Protein,Urine Negative (Negative); Specific Gravity, Urine 1.015 (1.005-1.030); Urobilinogen,Urine 0.2 EU/dl (0.2)
[2019-12-26 10:44] LABS: Squamous Epithelial Cell,Urine Occasional #/hpf (0-5)
[2019-12-26 11:00] LABS: Chloride 100 mmol/L (98-107)
[2019-12-26 11:01] LABS: Potassium 3.4 mmoL/L (3.5-5.1); Sodium 140 mmol/L (136-145)
[2019-12-26 11:04] LABS: Anion Gap 11.4 mEq/L (5-15); Blood Urea Nitrogen 20 mg/dl (7-17); Calcium 9.9 mg/dl (8.4-10.2); Carbon Dioxide 32 mmol/L (22.0-30.0); Estimated Glomerular Filt Rate 60 ml/min (>60); GFR (African American) 73 ML/MIN (>60); Glucose 104 mg/dl (74-100)
[2019-12-26 11:12] LABS: NT Pro Brain Natriuretic Pep. 53.5 pg/mL (0-450)
[2019-12-26 13:57] LABS: Coronavirus 19 IgG Antibody Negative (Negative); Coronavirus 19 IgM Antibody Negative (Negative)
== END ==
PROVIDERS: PCP Internal Medicine Adolescent Medicine; Visit Provider Internal Medicine
DX: Z20.828 Contact with and (suspected) exposure to other viral communicable diseases (principal); E83.52 Hypercalcemia; N39.0 Urinary tract infection, site not specified; R07.9 Chest pain, unspecified; R06.02 Shortness of breath
CPT/HCPCS: 36415; 80048; 81001; 83880; 86328

== ENCOUNTER → 2020-01-09 15:18 | Outpatient (CLI) | payer MEDICARE, SELFPAY ==
--- NOTE | 2020-01-09 15:24 | XR_ITS ---
PROCEDURE: XR CHEST 2V CLINICAL HISTORY: COUGH, FEVER, CHILLS COMPARISON: [id number] XR ribs RT min 3V w CXR1V from 04/27/2018 XR CHEST 2V from 11/10/2019 XR CHEST 2V from 12/19/2019 FINDINGS: The cardiomediastinal silhouette and pulmonary vascularity are within normal limits. There are chronic changes in the right lower lobe laterally with pleural thickening with increased density in the right lung base laterally which is slightly greater compared to the previous exam. The left lung is clear. No acute bony abnormalities. IMPRESSION: Chronic changes in the right lung base with slight increased density in the right lung base laterally which could be due to some superimposed atelectasis or infiltrate Dictated by: Paul Tolentino MD 01/09/2020 15:52 Electronically signed by Paul Tolentino MD in [place] 01/09/2020 15:52
== END ==
PROVIDERS: PCP Internal Medicine; Visit Provider Internal Medicine
DX: R05 Cough (principal); R50.9 Fever, unspecified
CPT/HCPCS: 71046

== ENCOUNTER → 2020-01-11 15:24 | Outpatient (CLI) | payer MEDICARE, SELFPAY ==
--- NOTE | 2020-01-11 15:46 | CT_ITS ---
PROCEDURE: CT CHEST W CON CLINCAL INDICATION: FEVER, FATIQUE Shortness of air with fever and fatigue COMPARISON: No exams were available for comparison TECHNIQUE: IV Contrast: 75ml Optiray 350 Axial images obtained with sagittal and coronal reformats. All CT scans at the facility use one or more dose reduction, viz: automated exposure control, ma/kV adjustment per patient size (including targeted exams where dose is matched to indication, i.e. head), or iterative reconstruction technique. FINDINGS: HEART AND MEDIASTINAL STRUCTURES: Unremarkable. LUNGS AND PLEURAL SPACES: Are some atelectatic or fibrotic changes in the right lower lobe anteriorly. Mild atelectasis noted in left lung base and along the left major fissure. There is some coarse irregular calcification in the right lung base posteriorly in the costophrenic sulcus. BONY STRUCTURES: Degenerative changes thoracic spine with mild lower thoracic scoliosis convex right UPPER ABDOMEN: Small hiatal hernia. There is mild elevation of the right hemidiaphragm. ADDITIONAL FINDINGS: No other significant abnormalities. IMPRESSION: Atelectatic changes versus scarring in the right lower lobe anteriorly with atelectasis also in the left lower lobe posteriorly and along the left major fissure There is a curvilinear area of coarse calcification in the right posterior costophrenic sulcus which could represent pleural calcifications versus postsurgical changes. Has the patient had prior right flank surgery? Small hiatal hernia Dictated b Paul Tolentino MD 01/11/2020 16:58 Paul Tolentino MD in [facility] 01/11/2020 16:58
[2020-01-11 15:53] LABS: Basophils % 0.3 % (0.1-2.0); Eosinophils % 0.2 % (0.1-12.0); Hematocrit 41.8 % (37.0-47.0); Hemoglobin 13.8 g/dL (12.2-16.2); Lymphocytes % 8.5 % (10-50); Mean Corpuscular HGB Conc 32.9 g/dL (31.8-35.4); Mean Corpuscular Hemoglobin 31.2 pg (27.0-31.2); Mean Corpuscular Volume 94.8 fl (81-99); Mean Platelet Volume 7.5 fl (7.4-10.4); Monocytes # 0.4 K/mm3 (0.1-1.0); Monocytes % 3.7 % (1.7-9.3); Neutrophils # 10.3 K/mm3 (1.8-7.8); Neutrophils % 87.2 % (37.0-80.0); Platelet Count 351 K/mm3 (142-424); Red Blood Count 4.41 M/mm3 (4.20-5.40); Red Cell Distribution Width 14.1 % (11.5-17.5); White Blood Count 11.8 K/mm3 (4.8-10.8)
[2020-01-11 16:01] LABS: Alanine Aminotransferase 11 U/L (12-78); Albumin Level 4.4 g/dl (3.5-5.0); Albumin/Globulin Ratio 1.3 (1.1-1.8); Alkaline Phosphatase 99 U/L (38-126); Aspartate Amino Transferase 28 U/L (14-36); Bilirubin,Total 0.4 mg/dl (0.2-1.3); Blood Urea Nitrogen 31 mg/dl (7-17); Calcium 9.9 mg/dl (8.4-10.2); Carbon Dioxide 30 mmol/L (22.0-30.0); Chloride 99 mmol/L (98-107); Estimated Glomerular Filt Rate 53 ml/min (>60); GFR (African American) 65 ML/MIN (>60); Globulin 3.4 g/dL (1.3-3.2); Glucose 132 mg/dl (74-100); Sodium 139 mmol/L (136-145); Total Protein,Serum 7.8 g/dl (6.3-8.2)
[2020-01-11 16:02] LABS: MANUAL DIFFERENTIAL MANUAL DIFFERENTIAL (MANUAL DIFF)
[2020-01-11 16:18] LABS: T4 (Thyroxine) 8.3 ug/dl (5.53-11.0)
[2020-01-11 16:22] LABS: Lymphocytes % 9 % (10-50); Monocytes % 1 % (2-9); Neutrophils % 90 % (42-76); Platelet Estimate Normal; Total Cells Counted 100
[2020-01-11 16:23] LABS: RBC Morphology Normal
[2020-01-11 16:26] LABS: Coronavirus 19 IgG Antibody Negative (Negative); Coronavirus 19 IgM Antibody Negative (Negative)
[2020-01-11 16:32] LABS: Thyroid Stimulating Hormone 1.57 uIU/mL (0.465-4.68)
== END ==
PROVIDERS: PCP Internal Medicine; Visit Provider Internal Medicine
DX: R50.9 Fever, unspecified (principal); R53.83 Other fatigue; R06.00 Dyspnea, unspecified; M35.3 Polymyalgia rheumatica; Z01.84 Encounter for antibody response examination; Z79.899 Other long term (current) drug therapy
CPT/HCPCS: 36415; 71260; 80053; 84436; 84439; 84443; 85007; 85025; 86328; 87040; Q9967

== ENCOUNTER 2020-07-11 21:18 | Emergency (ER) | payer MEDICARE, SELFPAY ==
[2020-07-11 21:20] VITALS: BP 126/87; PULSE 85; RESP 20; TEMP 37.1; O2SAT 95; BMI 34.1
--- NOTE | 2020-07-11 21:37 | XR_ITS ---
PROCEDURE: XR FOREARM LT 2V CLINICAL INDICATION: injury Pain following injury COMPARISON: CR FOREAR FOREARM-RT from 05/24/2016 CR XR WRIST LT MIN 3V from 07/11/2020 FINDINGS: There is a mildly impacted distal radial fracture. There is minimal lateral displacement of the lateral fragment by approximately 5 mm. The fracture may extend into the articular surface. Ulnar styloid fracture also present but not well demonstrated on images. The proximal mid aspect of the radius and ulna have an unremarkable appearance. IMPRESSION: Minimally displaced distal radial fracture with impaction Dictated by: Paul Tolentino MD 07/12/2020 05:13 Paul Tolentino MD in [place] 07/12/2020 05:13
--- NOTE | 2020-07-11 21:37 | XR_ITS ---
PROCEDURE: XR WRIST LT MIN 3V CLINICAL INDICATION: injury Posttraumatic pain COMPARISON: CR WRR3 WRIST-3 VIEWS-RT from 06/10/2016 CR WRR3 WRIST-3 VIEWS-RT from 07/11/2016 CR WRR3 WRIST-3 VIEWS-RT from 07/17/2016 CR WRR3 WRIST-3 VIEWS-RT from 09/03/2016 FINDINGS: There is a mildly impacted nondisplaced fracture involving the distal radius at the diaphyseal metaphyseal junction. Longitudinal component is present laterally and appears to extend to the articular surface. There is an associated ulnar styloid fracture with the distal at fragment minimally displaced laterally. . IMPRESSION: Mildly impacted distal radial fracture with minimally displaced ulnar styloid fracture Dictated by: Paul Tolentino MD 07/12/2020 05:12 Paul Tolentino MD in [place] 07/12/2020 05:12
[2020-07-11 22:00] VITALS: BP 145/88; PULSE 80; RESP 17; O2SAT 98
--- NOTE | 2020-07-11 22:01 | HMH.EDUPEXT ---
ED Disposition Clinical Impression: Fracture of wrist Qualifiers: Encounter type: initial encounter Fracture type: closed Laterality: left Qualified Code(s): S62.102A - Fracture of unspecified carpal bone, left wrist, initial encounter for closed fracture Disposition: Home, Self-Care Condition on Discharge: Good Instructions: DI for Wrist Fracture Additional Instructions: ice and call pcp and ortho in am Referrals: Azael Pritchard [Primary Care Provider] - Daniel Collins MD [Staff Physician] - - Critical Care Critical Care Time: No Attestation: On 07/11/20, the high probability of a clinically significant, sudden or life threatening deterioration of the following system(s) required my full and direct attention, intervention and personal management. The time I documented below is in addition to time spent performing reported procedures but includes the following listed in this critical care notation. Medical Decision Making - Medical Records Medical records reviewed: Yes: I reviewed the patient's medical records. - Angel Inquiry Pt receiving controlled substance: No Vital Signs: 07/11/20 21:20 Temperature 98.8 F Temperature Source Oral Pulse Rate [Right Radial] 85 Respiratory Rate 20 Blood Pressure [Right Arm] 126/87 Blood Pressure Mean [Right Arm] 100 Blood Pressure Source [Right Arm] Automatic Cuff Blood Pressure Position [Right Arm] Sitting 02 Sat by Pulse Oximetry 95 Oxygen Delivery Method Room Air Orders (Tests/Meds): ED MEDICATIONS Discontinued Medications Generic Name Dose Route Start Last Admin Trade Name Freq PRN Reason Stop Dose Admin Acetaminophen 650 mg 07/11/20 21:38 07/11/20 21:40 Acetaminophen 325mg Tab PO 07/11/20 21:39 650 mg ONCE ONE Administration Ibuprofen 600 mg 07/11/20 21:38 07/11/20 21:41 Ibuprofen 600 Mg Tablet PO 07/11/20 21:39 600 mg ONCE ONE Administration ORDERS Category Date Time Status XR forearm LT 2V Stat Exams 07/11/20 21:37 Taken XR wrist LT min 3V Stat Exams 07/11/20 21:37 Taken - Radiology Data #1 Image(s): Forearm, Wrist Image Reviewed: Yes I reviewed the patient's radiology image Preliminary Findings: Abnormal (fx wrist ) Medical Decision Narrative: will splint and refer to ortho Upper Extremity HPI - General Chief Complaint: Extremity Injury, Upper Stated Complaint: AO [id number] fell injured left wrist Time Seen by Provider: 07/11/20 22:01 Mode of Arrival: Ambulatory Source of Information: Patient, Medical Record Limitations: No Limitations Description of Symptoms (Recalled from ER Triage Doc. by RN): Pt reports slipping on ice and falling on left wrist. Pt denies any other pain or injuries. Pt has limited ROM to left wrist w/ swelling present. Distal pulse present. - History of Present Illness HPI narrative: slipped on ice with lt wrist injury - no other c/o- workman comp - forms completed MD complaint: injury to: left, wrist Onset (ago): hour(s) Other Extremity Injury: Left: wrist Other injuries: none Handedness: right Place: home Severity: moderate Context: fall Associated symptoms: denies other symptoms Treatments prior to arrival: cold therapy - Related Data Home Medications Medication Instructions Recorded Confirmed Bumetanide [Bumex 1mg tablet] 1 mg PO BID 04/11/18 12/19/19 Citalopram Hydrobromide 20 mg PO DAILY 04/11/18 12/19/19 [Citalopram HBr] Potassium Chloride [Klor-con 20 20 meq PO BID 04/11/18 12/19/19 mEq tablet] acetaminophen 300 mg-codeine 30 mg 1 tab PO DAILY 11/18/19 12/19/19 tablet ascorbic acid (vitamin C) 500 mg 500 mg PO DAILY 11/18/19 12/19/19 tablet famotidine 20 mg tablet 20 mg PO DAILY 11/18/19 12/19/19 multivitamin-ferrous 1 tab PO DAILY 11/18/19 12/19/19 fumarate-folic acid 18 mg-400 mcg tablet omega-3 fatty acids 1,000 mg 1,000 mg PO DAILY 11/18/19 12/19/19 capsule polysaccharide iron complex 150 mg 150 mg PO DAILY
[2020-07-11 22:30] VITALS: BP 163/87; PULSE 75; RESP 17; O2SAT 98
[2020-07-11 22:49] VITALS: BP 163/87; PULSE 75; RESP 17; TEMP 36.7; O2SAT 98
== END 2020-07-11 22:49 | disposition home or self-care (01) ==
PROVIDERS: Emergency Provider Emergency Medicine; PCP Internal Medicine
DX: S62.102A Fracture of unspecified carpal bone, left wrist, initial encounter for closed fracture (principal); W00.0XXA Fall on same level due to ice and snow, initial encounter; Z79.899 Other long term (current) drug therapy; Z88.0 Allergy status to penicillin; Z88.2 Allergy status to sulfonamides
CPT/HCPCS: 29125; 73090; 73110; 99283

== ENCOUNTER → 2020-07-13 14:54 | Outpatient (CLI) | payer SELFPAY ==
[2020-07-13 15:26] LABS: Basophils # 0.1 K/mm3 (0-0.2); Basophils % 0.6 % (0.1-2.0); Eosinophils % 0.2 % (0.1-12.0); Hematocrit 42.9 % (37.0-47.0); Lymphocytes % 9.8 % (10-50); Mean Corpuscular HGB Conc 32.5 g/dL (31.8-35.4); Mean Corpuscular Hemoglobin 30.6 pg (27.0-31.2); Mean Corpuscular Volume 94.2 fl (81-99); Mean Platelet Volume 7.6 fl (7.4-10.4); Monocytes # 0.4 K/mm3 (0.1-1.0); Monocytes % 3.7 % (1.7-9.3); Neutrophils # 8.8 K/mm3 (1.8-7.8); Neutrophils % 85.7 % (37.0-80.0); Platelet Count 354 K/mm3 (142-424); Red Blood Count 4.56 M/mm3 (4.20-5.40); Red Cell Distribution Width 13.9 % (11.5-17.5); White Blood Count 10.3 K/mm3 (4.8-10.8)
[2020-07-13 15:29] LABS: MANUAL DIFFERENTIAL MANUAL DIFFERENTIAL (MANUAL DIFF)
--- NOTE | 2020-07-13 15:29 | XR_ITS ---
PROCEDURE: XR CHEST 2V CLINICAL HISTORY: preop CHF COMPARISON: CR XR CHEST 2V from 11/10/2019 CR XR CHEST 2V from 12/19/2019 CR XR CHEST 2V from 01/09/[address] CHEST W CON from 01/11/2020 FINDINGS: The cardiomediastinal silhouette and pulmonary vascularity are within normal limits. There are chronic changes in the right lung base laterally with chronic blunting of the right CP angle with parenchymal opacity in the right lung base similar to previous exams. The remaining lungs are clear. No acute bony abnormalities. IMPRESSION: Chronic changes in the right lung base. No change with no acute finding. Dictated by: Paul Tolentino MD 07/13/2020 16:51 Paul Tolentino MD in [place] 07/13/2020 16:51
--- NOTE | 2020-07-13 15:32 | ECG_ITS ---
APPROVED REPORT Exam: Resting ECG HR:74 bpm ECG Measurements Heart Rate 74 AXES NC 152 P 48 QRSd 94 QRS -50 QT 400 T 67 QTc 444 Conclusion Normal sinus rhythm Left anterior fascicular block Possible Lateral infarct, age undetermined Abnormal ECG Electronically signed by : Anthony Dc, 07/14/2020 08:50:49
[2020-07-13 16:14] LABS: Alanine Aminotransferase 9 U/L (12-78); Albumin Level 4.7 g/dl (3.5-5.0); Albumin/Globulin Ratio 1.4 (1.1-1.8); Alkaline Phosphatase 99 U/L (38-126); Anion Gap 12.4 mEq/L (5-15); Aspartate Amino Transferase 26 U/L (14-36); Bilirubin,Total 0.4 mg/dl (0.2-1.3); Blood Urea Nitrogen 25 mg/dl (7-17); Calcium 10.2 mg/dl (8.4-10.2); Carbon Dioxide 33 mmol/L (22.0-30.0); Chloride 102 mmol/L (98-107); Estimated Glomerular Filt Rate 48 ml/min (>60); GFR (African American) 58 ML/MIN (>60); Globulin 3.3 g/dL (1.3-3.2); Glucose 107 mg/dl (74-100); Potassium 4.4 mmoL/L (3.5-5.1); Sodium 143 mmol/L (136-145)
[2020-07-13 16:27] LABS: Lymphocytes % 11 % (10-50); Monocytes % 5 % (2-9); Neutrophils % 82 % (42-76); Platelet Estimate Normal; RBC Morphology Normal; Total Cells Counted 100
== END ==
PROVIDERS: Visit Provider Orthopaedic Surgery
DX: Z01.818 Encounter for other preprocedural examination (principal); S52.572A Other intraarticular fracture of lower end of left radius, initial encounter for closed fracture; S52.612A Displaced fracture of left ulna styloid process, initial encounter for closed fracture
CPT/HCPCS: 36415; 71046; 80053; 85007; 85025; 93005

== ENCOUNTER → 2020-07-17 16:44 | Outpatient (CLI) | payer MEDICARE, SELFPAY ==
[2020-07-17 17:36] LABS: Coronavirus 19 IgG Antibody Negative (Negative); Coronavirus 19 IgM Antibody Negative (Negative)
== END ==
PROVIDERS: Visit Provider Orthopaedic Surgery
DX: Z01.818 Encounter for other preprocedural examination (principal); Z20.822 Contact with and (suspected) exposure to COVID-19; S52.572A Other intraarticular fracture of lower end of left radius, initial encounter for closed fracture; S52.612A Displaced fracture of left ulna styloid process, initial encounter for closed fracture
CPT/HCPCS: 36415; 86328

== ENCOUNTER 2020-07-19 06:10 | Day surgery (SDC) | payer MEDICARE, SELFPAY ==
[2020-07-17 10:57] VITALS: BMI 34.1
[2020-07-19] VITALS (14 sets, daily range): BP systolic 133–165; BP diastolic 72–90; PULSE 77–108; RESP 12–18; TEMP 36.4–43; O2SAT 88–96
--- NOTE | 2020-07-19 08:33 | P.PN_ITS ---
[facility] Anesthesia Checklist - Structural Data Admitted From: Home Planned Operative Procedure/s: orif l wrist Consent for Planned Operative Procedure(s) Verified: Yes - Additional verifications Anesthesia Reactions: Yes (hard time waking up after) Hx Blood Transfusions: Yes Blood Transfusion Reaction: No - Airway Assessment C-Spine Mobility Assessed: Yes TMJ Mobility Assessed: Yes Dentition: Partials - Neurological Assessment Level of Consciousness: Awake, Alert, Appropriate - Anesthesia Plan Anesthesia Risk discussed: Yes Anesthesia Plan: Verified ASA Class: III Anesthesia Type: General w/block [facility] History I have reviewed the patient's past medical history: Yes Medical History: Reports:: Atrial Fibrillation, Cancer (COLON), Congestive Heart Failure, Depression, Gastroesophageal Reflux Disease(GERD), Hypertension, Lung Disease Denies:: Diabetes Mellitus Type 1, Diabetes Mellitus Type 2, Internal Pacemaker, MRSA, Seizures *Have you ever received a pneumonia vaccine?: No *Have you received a flu vaccine this season?: No Other Medical History: Reports: Thyroid Disease, Other. Denies: Blood Transfusion Reaction Anesthesia experience/problems:: none Other Surgeries: Yes: Cancer Surgery, Cholecystectomy, Colonoscopy, Colon Resection, Hysterectomy-Total, Other. No: Appendectomy, , Pacemaker, Thyroidectomy Amputation: No Fractures: Yes - *Social History Last grade of school completed: High school graduate Smoking Status: Never smoker Alcohol Intake: never Substance Use Type: denies use *Occupational Status:: employed Housing: house Household Members: none *Travel in the last 8 weeks: None - Psychiatric History Pschychiatric History:: Reports:: Depression Family Hx:: Cancer
--- NOTE | 2020-07-19 09:38 | XR_ITS ---
PROCEDURE: XR WRIST LT 2V CLINICAL INDICATION: LEFT ORIF WRIST IN OR COMPARISON: No exams were available for comparison FINDINGS: Fluoroscopy time: 1 minutes and 1 second. Multiple images are submitted with the C-arm showing placement of a volar bone plate at the distal aspect of the radius with good alignment of the fracture fragments. Good alignment status post ORIF distal radial fracture IMPRESSION: No acute findings. Dictated by: Paul Tolentino MD 07/19/2020 11:22 Paul Tolentino MD in [place] 07/19/2020 11:22
--- NOTE | 2020-07-19 10:15 | HMH.ANESI ---
[facility] Anesthesia Record Part I Intake, IV Amount: 1,000 Estimated blood loss (mL): 20 Urine output (mL): 0 Blood Pressure: 156/89 SaO2: 91 Pulse Rate: 97 Respiratory Rate: 12 Temperature: 97.5 F Patient is:: Awake, Stable Stable to PACU at:: 10:10
--- NOTE | 2020-07-19 10:45 | HMH.OPNOTE ---
Date of procedure: 07/19/20 Pre-op Diagnosis:: Closed, comminuted, displaced intra-articular fracture, LEFT distal radius Post-op Diagnosis:: Same Procedure performed:: Open reduction and internal fixation LEFT distal radius with volar locking plate. Surgeon:: Daniel Collins MD It Systems Analyst(s):: Ange Cadena SLIP DUMPER:: Alexey Duffy Anesthesia: regional (Supraclavicular nerve block), LMA Estimated blood loss (mL): 10 Clinical Note:: Patient is an 79-year-old female who sustained a closed displaced intra-articular fracture of the LEFT distal radius when she fell onto outstretched hand after slipping on ice about 8 days ago. Evaluation including x-rays of her LEFT wrist showed a closed, comminuted and displaced intra-articular fracture of the LEFT distal radius. There was dorsal angulation and foreshortening of the radius with loss of radial inclination and loss of the normal volar tilt of the distal radius. The fracture was extending into the radiocarpal joint. Surgery was indicated to reduce and stabilize the fracture in order to decrease pain, restore the anatomy and function. Please refer to my office note for full details. Operative findings:: Displaced, comminuted and unstable intra-articular fracture of the left distal radius as noted on the preoperative x-rays. Surgical reduction and fixation was obtained with volar locking plate and screws. The bone is noted to be soft/osteoporotic. Operative note:: On the day of surgery, I met the patient and her daughter in the preoperative area and again discussed the details of the procedure, risks and benefits, alternatives and the expected outcomes. The complications discussed include but are not limited to infection, bleeding, injury to nerves, tendons and blood vessels, incisional scar (cosmesis), DVT/PE, malunion, nonunion/delayed union, loss of position, refracture, wrist/finger stiffness, CRPS (complex regional pain syndrome- pain, sensory and temperature changes, swelling and stiffness), painful/prominent hardware, loss of fixation/hardware failure, incomplete relief of pain, incomplete return of function, posttraumatic arthritis and likely need for further surgery in future and also the risks of anesthesia including heart attack, stroke, and . I have discussed how there is a small but real possibility of loss of use of the arm, loss of the limb or loss of life itself. I have also explained how additional surgery may be required if there are any complications or the fracture fails to heal. We have also discussed the postoperative pain management, recovery and rehabilitation, immobilization required, the likely need for physical therapy, the possibility of stiffness, chronic pain and we've also discussed the option of nonsurgical treatment. She expressed a full understanding and wished to proceed. The operative site/side was marked and initialed by me. Patient understood the risks, agreed to proceed with surgery, signed the consent form and no guarantees or assurances were given or implied. Patient was brought to the operating room and placed supine on the table. The LEFT upper extremity was placed over an arm table. All the bony prominences were well padded. A general anesthesia was administered by the shuttle fixer. Prior to that patient also received a supraclavicular nerve block in the preoperative area. A well-padded tourniquet cuff was applied over the left upper arm. The left upper extremity was prepped and draped in the usual sterile fashion. A preprocedure timeout was performed as per hospital protocol. Administration of prophylactic IV antibiotics (2 g of IV Ancef) was confirmed prior to starting the procedure. The skin incision was marked over the distal forearm anteriorly for the extended FCR volar approach to distal radius. Limb was exsanguinated with Esmarch bandage and tourniquet was inflated to 250 mmHg. Please see the nursing notes for the total tourniquet time. Skin incision was made over the
--- NOTE | 2020-07-20 09:02 | P.PN_ITS ---
[facility] Anesthesia Record Part II Discharge Time: 10:59 Destination: Surgical Day Care (OP Surgery) PACU nurse assessment reviewed?: Yes Patient Condition:: Good Anesthesia Complications:: None Swallowing reflex intact?: Yes Cyanosis?: No Blood Pressure: 146/83 Pulse Rate: 86 Temperature: 97.6 F Mental Status: Alert & Oriented Pain level:: 0 Nausea and/or vomitting:: None Intake, IV Amount: 0
[2020-07-20 09:03] VITALS: BP 146/83; PULSE 86; TEMP 36.4
== END 2020-07-19 11:40 | disposition home or self-care (01) ==
LOC: OR 06:11
PROVIDERS: PCP Internal Medicine; Visit Provider Orthopaedic Surgery
PROC: (CPT 25608; principal; 2020-07-19 07:30)
DX: S52.572A Other intraarticular fracture of lower end of left radius, initial encounter for closed fracture (principal); S52.612A Displaced fracture of left ulna styloid process, initial encounter for closed fracture; W00.0XXA Fall on same level due to ice and snow, initial encounter; Y92.019 Unspecified place in single-family (private) house as the place of occurrence of the external cause; E03.9 Hypothyroidism, unspecified; I11.0 Hypertensive heart disease with heart failure; I50.9 Heart failure, unspecified; I48.91 Unspecified atrial fibrillation; Z79.899 Other long term (current) drug therapy; Z88.0 Allergy status to penicillin; Z88.2 Allergy status to sulfonamides; M81.0 Age-related osteoporosis without current pathological fracture
CPT/HCPCS: 25608; 73100; 76000; 94640; 96374; C1713; C1769; C1776; J2405

== ENCOUNTER → 2020-07-31 11:42 | Outpatient (CLI) | payer MEDICARE, SELFPAY ==
--- NOTE | 2020-07-31 11:48 | XR_ITS ---
PROCEDURE: XR WRIST LT MIN 3V CLINICAL INDICATION: sp ORIF LT wrist, dos 07/19/20 Follow-up surgery COMPARISON: CR WRR3 WRIST-3 VIEWS-RT from 07/11/2016 CR WRR3 WRIST-3 VIEWS-RT from 07/17/2016 CR WRR3 WRIST-3 VIEWS-RT from 09/03/2016 CR XR WRIST LT MIN 3V from 07/11/2020 FINDINGS: Status post ORIF comminuted distal radial fracture with a volar bone plate present. There is good alignment of the fracture fragments. There is a cast in place obscuring fine detail the bony elements. Other findings:The ulnar styloid process fracture fragment is in good position. IMPRESSION: Good alignment status post ORIF distal radial fracture Dictated by: Paul Tolentino MD 07/31/2020 15:18 Paul Tolentino MD in [place] 07/31/2020 15:18
== END ==
PROVIDERS: PCP Internal Medicine; Visit Provider Orthopaedic Surgery
DX: Z09 Encounter for follow-up examination after completed treatment for conditions other than malignant neoplasm (principal); S52.572D Other intraarticular fracture of lower end of left radius, subsequent encounter for closed fracture with routine healing; S52.612D Displaced fracture of left ulna styloid process, subsequent encounter for closed fracture with routine healing
CPT/HCPCS: 73110

== ENCOUNTER → 2020-08-14 10:14 | Outpatient (CLI) | payer MEDICARE, SELFPAY ==
--- NOTE | 2020-08-14 10:17 | XR_ITS ---
PROCEDURE: XR WRIST LT MIN 3V CLINICAL INDICATION: sp ORIF LT wrist, dos 07/19/20; after cast removed Follow-up surgery COMPARISON: CR WRR3 WRIST-3 VIEWS-RT from 07/17/2016 CR WRR3 WRIST-3 VIEWS-RT from 09/03/2016 CR XR WRIST LT MIN 3V from 07/11/2020 CR XR WRIST LT MIN 3V from 07/31/2020 FINDINGS: Cast has been removed. Volar bone plate remains in place with good alignment of the distal radial fracture. There is a nondisplaced fracture at the base of the ulnar styloid with good alignment and no significant displacement. Other findings:None. IMPRESSION: Good alignment status post ORIF distal radial fracture Dictated by: Paul Tolentino MD 08/14/2020 17:39 Paul Tolentino MD in [place] 08/14/2020 17:39
== END ==
PROVIDERS: PCP Internal Medicine; Visit Provider Orthopaedic Surgery
DX: Z09 Encounter for follow-up examination after completed treatment for conditions other than malignant neoplasm (principal)
CPT/HCPCS: 73110

== ENCOUNTER 2020-08-14 10:54 | Outpatient (RCR) | payer MEDICARE, SELFPAY | END 2020-08-14 11:34 | disposition home or self-care (01) | LOC: OT 10:54 | PROVIDERS: Visit Provider Orthopaedic Surgery | DX: S52.572A Other intraarticular fracture of lower end of left radius, initial encounter for closed fracture (principal); S52.612A Displaced fracture of left ulna styloid process, initial encounter for closed fracture | CPT/HCPCS: 97763 ==

== ENCOUNTER → 2020-10-03 12:34 | Outpatient (CLI) | payer MEDICARE, SELFPAY ==
--- NOTE | 2020-10-03 12:48 | XR_ITS ---
PROCEDURE: XR WRIST LT MIN 3V CLINICAL INDICATION: s/p ORIF lt wrist/ dos 07/19/20 COMPARISON: CR WRR3 WRIST-3 VIEWS-RT from 09/03/2016 CR XR WRIST LT MIN 3V from 07/11/2020 CR XR WRIST LT MIN 3V from 07/31/2020 CR XR WRIST LT MIN 3V from 08/14/2020 FINDINGS: Good alignment status post ORIF distal radius with anterior bone plate in place. Sclerosis developing at the fracture site of the distal radius and ulnar styloid process. There is some residual fracture line noted. IMPRESSION: Healing nondisplaced distal radial fracture and ulnar fracture status post ORIF of the distal radius Dictated by: Paul Tolentino MD 10/03/2020 13:50 Paul Tolentino MD in [place] 10/03/2020 13:50
== END ==
PROVIDERS: PCP Internal Medicine; Visit Provider Orthopaedic Surgery
DX: S62.109A Fracture of unspecified carpal bone, unspecified wrist, initial encounter for closed fracture (principal)
CPT/HCPCS: 73110

== ENCOUNTER 2020-10-17 15:00 | Outpatient (RCR) | payer MEDICARE, SELFPAY | END 2020-10-17 15:05 | disposition home or self-care (01) | LOC: OT 15:00 | PROVIDERS: PCP Internal Medicine; Visit Provider Orthopaedic Surgery | DX: S52.572D Other intraarticular fracture of lower end of left radius, subsequent encounter for closed fracture with routine healing (principal); S52.612A Displaced fracture of left ulna styloid process, initial encounter for closed fracture | CPT/HCPCS: 97010; 97014; 97035; 97110; 97140; 97164; 97165; G0283 ==

== ENCOUNTER 2020-12-21 12:39 | Emergency (ER) | payer MEDICARE, SELFPAY ==
[2020-12-21 12:40] VITALS: BP 146/85; PULSE 85; RESP 21; TEMP 36.8; O2SAT 96; BMI 33.4
[2020-12-21 13:04] LABS: Apearance,Urine Clear (Clear); Bilirubin,Urine Negative (Negative); Blood, Urine Negative (Negative); Color,Urine Yellow (Yellow); Glucose,Urine (UA) Negative (Negative); Ketones,Urine Negative (Negative); PH,Urine 5.5 (5.0-8.5); Protein,Urine Negative (Negative); Specific Gravity, Urine 1.015 (1.005-1.030); UTC Leukocyte Esterase,Urine Negative (Negative); UTC Nitrate,Urine Negative (Negative); Urobilinogen,Urine 0.2 EU/dl (0.2)
--- NOTE | 2020-12-21 13:07 | HMH.EDUTC ---
[facility] [place] Disposition Clinical Impression: Dysuria Low back pain Qualifiers: Chronicity: acute Back pain laterality: right Sciatica presence: without sciatica Qualified Code(s): M54.5 - Low back pain Disposition: Home, Self-Care Condition on Discharge: Good Instructions: Urinary Tract Infection, DI for Urinary Tract Infection (UTI) Additional Instructions: Drink plenty of fluids. Take tylenol or ibuprofen for pain or fever. Take the medications as directed. Follow up with your regular doctor. GO TO THE ER FOR ANY WORSENING SYMPTOMS The pyridium will make your urine turn orange, this is an expected side effect. It will stain your clothes if it comes into contact with them. Prescriptions: Ciprofloxacin HCl 500 mg PO BID 5 Days #10 tab Transmission Status: Received by [facility] Phenazopyridine HCl [Pyridium 200mg Tablet] 200 pow PO TID #6 tab Transmission Status: Received by [facility] Referrals: Azael Pritchard [Primary Care Provider] - Time of Disposition: 13:25 Medical Decision Making - Medical Records Medical records reviewed: No: I reviewed the patient's medical records. - Angel Inquiry Pt receiving controlled substance: No Vital Signs: 12/21/20 12:40 12/21/20 13:25 Temperature 98.2 F 98.2 F Temperature Source Oral Pulse Rate 85 Pulse Rate [Right Brachial] 85 Respiratory Rate 21 21 Blood Pressure 146/85 H Blood Pressure [Right Arm] 146/85 H Blood Pressure Mean [Right Arm] 105 Blood Pressure Source [Right Arm] Automatic Cuff Blood Pressure Position [Right Arm] Sitting 02 Sat by Pulse Oximetry 96 Oxygen Delivery Method Room Air - Lab Data Lab Results 12/21/20 12:50: Urine Color Yellow, Urine Appearance Clear, Urine pH 5.5, Ur Specific Cost 1.015, Urine Protein Negative, Urine Glucose (UA) Negative, Urine Ketones Negative, Urine Blood Negative, Urine Nitrate Negative, Urine Bilirubin Negative, Urine Urobilinogen 0.2, Ur Leukocyte Esterase Negative Orders (Tests/Meds): ORDERS Category Date Time Status Urine Culture Stat Micro 12/21/20 12:51 Received [facility] [place] HPI - General Stated complaint: possible uti Time Seen by Provider: 12/21/20 13:15 Mode of Arrival: Ambulatory Source of Information: Patient Limitations: No Limitations Description of Symptoms (Recalled from Triage Doc. by RN): PATIENT C/O RIGHT FLANK PAIN AND FREQUENT URINATION HEENT Symptoms (Recalled from RN notes): No Resp Symptoms (Recalled from RN notes): No Skin Symptoms (Recalled from RN notes): No MS Symptoms (Recalled from RN notes): No Functional Status (Recalled from RN notes): WNL - History of Present Illness Provider Complaint: She c/o low back pain and lower abdomen discomfort. She states that her symtoms have been present for the past 5 days. She is also having dysuria and frequnecy. - Related Data Home Medications Medication Instructions Recorded Confirmed Bumetanide [Bumex 1mg tablet] 1 mg PO BID 04/11/18 10/03/20 Citalopram Hydrobromide 20 mg PO DAILY 04/11/18 10/03/20 [Citalopram HBr] Potassium Chloride [Klor-con 20 20 meq PO BID 04/11/18 10/03/20 mEq tablet] famotidine 20 mg tablet 20 mg PO BID 11/18/19 10/03/20 multivitamin-ferrous 1 tab PO DAILY 11/18/19 10/03/20 fumarate-folic acid 18 mg-400 mcg tablet omega-3 fatty acids 1,000 mg 1,000 mg PO DAILY 11/18/19 10/03/20 capsule polysaccharide iron complex 150 mg 150 mg PO DAILY 11/18/19 10/03/20 iron capsule zinc acetate 50 mg (zinc) capsule 50 mg PO DAILY 11/18/19 10/03/20 predniSONE [Prednisone 20mg 20 mg PO DAILY 12/06/19 10/03/20 Tab] Carbidopa/Levodopa [Carbidopa-Levo 1 tab PO QID 12/19/19 10/03/20 ER 25-100 Tab] Levothyroxine Sodium 75 mcg PO DAILY 12/19/19 10/03/20 [Levothyroxine 75mcg (0.075mg) Tab] alendronate 70 mg tablet 70 mg PO WEEKLY 07/13/20 10/03/20 rosuvastatin 10 mg tablet 10 mg PO DAILY 07/13/20 10/03/20 Cyanocobalamin (Vitamin B-12) 5,000 mc
[2020-12-21 13:25] VITALS: BP 146/85; PULSE 85; RESP 21; TEMP 36.8; O2SAT 96
== END 2020-12-21 13:29 | disposition home or self-care (01) ==
PROVIDERS: Emergency Provider Nurse Practitioner Family; PCP Internal Medicine
DX: R30.0 Dysuria (principal); M54.5 Low back pain; I48.91 Unspecified atrial fibrillation; K21.9 Gastro-esophageal reflux disease without esophagitis; I10 Essential (primary) hypertension; E03.9 Hypothyroidism, unspecified; Z79.899 Other long term (current) drug therapy; I50.9 Heart failure, unspecified
CPT/HCPCS: G0463; 81003; 87086; 87088; 87186; 99202

== ENCOUNTER → 2021-03-04 08:09 | Outpatient (CLI) | payer MEDICARE, SELFPAY ==
[2021-03-04 09:05] VITALS: PULSE 85; PULSE 88
== END ==
PROVIDERS: PCP Internal Medicine; Visit Provider Internal Medicine Pulmonary Disease
DX: R06.00 Dyspnea, unspecified (principal)
CPT/HCPCS: 94060; 94618; 94640; 94727; 94729

== ENCOUNTER → 2021-03-11 14:45 | Outpatient (CLI) | payer MEDICARE, SELFPAY | PROVIDERS: PCP Internal Medicine; Visit Provider Specialist | DX: G47.33 Obstructive sleep apnea (adult) (pediatric) (principal) | CPT/HCPCS: 94762 ==

== ENCOUNTER 2021-05-31 20:36 | Emergency (ER) | payer MEDICARE, SELFPAY ==
[2021-05-31 20:37] VITALS: BP 119/69; PULSE 83; RESP 18; TEMP 36.4; O2SAT 96; BMI 33.3
--- NOTE | 2021-05-31 20:48 | XR_ITS ---
PROCEDURE INFORMATION: Exam: XR Chest Exam date and time: 05/31/2021 8:48 PM Age: 80 years old Clinical indication: Cough and other: Congestion; Additional info: Congestion cough TECHNIQUE: Imaging protocol: XR of the chest. Views: 2 views. COMPARISON: CR XR CHEST 2V 07/13/2020 3:30 PM FINDINGS: Lungs: Chronic appearing atelectasis or scarring at the right lung base. No lobar consolidation. Pleural spaces: Chronic blunting of the right costophrenic sulcus. No pneumothorax. Heart/Mediastinum: No cardiomegaly. Bones/joints: Degenerative changes of the shoulders. IMPRESSION: Chronic changes without acute process.
[2021-05-31 21:00] VITALS: BP 119/69; PULSE 76; O2SAT 93
[2021-05-31 21:06] LABS: Coronavirus 19, PCR Not Detected (NotDetected); Influenza A, PCR Not Detected (NotDetected); Influenza B, PCR Not Detected (NotDetected)
[2021-05-31 21:09] LABS: Basophils # 0.1 K/mm3 (0-0.2); Basophils % 0.7 % (0.1-2.0); Eosinophils # 0.1 K/mm3 (0.0-0.4); Eosinophils % 0.5 % (0.1-12.0); Hematocrit 36.1 % (37.0-47.0); Lymphocytes # 1.5 K/mm3 (0.7-4.5); Lymphocytes % 14.2 % (10-50); Mean Corpuscular HGB Conc 33.2 g/dL (31.8-35.4); Mean Corpuscular Hemoglobin 31.7 pg (27.0-31.2); Mean Corpuscular Volume 95.2 fl (81-99); Mean Platelet Volume 7.6 fl (7.4-10.4); Monocytes # 0.7 K/mm3 (0.1-1.0); Monocytes % 6.2 % (1.7-9.3); Neutrophils # 8.2 K/mm3 (1.8-7.8); Neutrophils % 78.3 % (37.0-80.0); Platelet Count 366 K/mm3 (142-424); Red Blood Count 3.79 M/mm3 (4.20-5.40); Red Cell Distribution Width 13.9 % (11.5-17.5); White Blood Count 10.4 K/mm3 (4.8-10.8)
[2021-05-31 21:21] LABS: Alanine Aminotransferase 15 U/L (12-78); Albumin Level 4.3 g/dl (3.5-5.0); Albumin/Globulin Ratio 1.3 (1.1-1.8); Alkaline Phosphatase 111 U/L (38-126); Anion Gap 11.5 mEq/L (5-15); Aspartate Amino Transferase 37 U/L (14-36); Bilirubin,Total 0.5 mg/dl (0.2-1.3); Blood Urea Nitrogen 30 mg/dl (7-17); Calcium 10.8 mg/dl (8.4-10.2); Carbon Dioxide 32 mmol/L (22.0-30.0); Chloride 97 mmol/L (98-107); Creatinine Clearance Estimated 51 mL/min (50-200); Estimated Glomerular Filt Rate 43 ml/min (>60); GFR (African American) 52 ML/MIN (>60); Globulin 3.2 g/dL (1.3-3.2); Glucose 121 mg/dl (74-100); Lactic Acid 1.3 mmol/L (0.7-2.1); Sodium 138 mmol/L (136-145); Total Protein,Serum 7.5 g/dl (6.3-8.2)
[2021-05-31 21:26] LABS: C-Reactive Protein 23.3 mg/L (0-4)
[2021-05-31 21:34] LABS: Potassium 2.5 mmoL/L (3.5-5.1)
--- NOTE | 2021-05-31 21:39 | PC.NURSE ---
notified roddy of critical potassium 2.5
[2021-05-31 21:40] LABS: Procalcitonin 0.065 ng/mL (0.0-2.0)
[2021-05-31 21:43] LABS: Erythrocyte Sedimentation Rate 102 mm/hr (0-30)
[2021-05-31 22:01] VITALS: BP 110/72; PULSE 71; O2SAT 94
--- NOTE | 2021-05-31 22:56 | HMH.EDURI ---
ED Disposition Clinical Impression: Bronchitis Disposition: Home, Self-Care Condition on Discharge: Good Instructions: DI for Acute Bronchitis Additional Instructions: fluids and use meds and see pcp for follow up Prescriptions: Benzonatate [Benzonatate 100mg cap] 100 mg PO TID #21 cap Transmission Status: Pending to [facility] levoFLOXacin [Levaquin 500mg tab] 500 mg PO DAILY #7 tab Transmission Status: Pending to [facility] predniSONE [Prednisone 20mg Tab] 20 mg PO BID #10 tab Transmission Status: Pending to [facility] Referrals: Azael Pritchard [Primary Care Provider] - - Critical Care Critical Care Time: No Attestation: On 05/31/21, the high probability of a clinically significant, sudden or life threatening deterioration of the following system(s) required my full and direct attention, intervention and personal management. The time I documented below is in addition to time spent performing reported procedures but includes the following listed in this critical care notation. Medical Decision Making - Medical Records Medical records reviewed: Yes: I reviewed the patient's medical records. - Angel Inquiry Pt receiving controlled substance: No Vital Signs: 05/31/21 20:37 05/31/21 21:00 05/31/21 22:01 Temperature 97.5 F L Temperature Source Oral Pulse Rate 76 71 Pulse Rate [Right] 83 Respiratory Rate 18 Blood Pressure 119/69 110/72 Blood Pressure [Right Arm] 119/69 Blood Pressure Mean [Right Arm] 85 02 Sat by Pulse Oximetry 96 93 L 94 L Oxygen Delivery Method Room Air - Lab Data Lab results reviewed: Yes: I reviewed the patient's lab results. Lab Results 05/31/21 20:55: WBC 10.4, RBC 3.79 L, Hgb 12.0 L, Hct 36.1 L, MCV 95.2, MCH 31.7 H, MCHC 33.2, RDW 13.9, Plt Count 366, MPV 7.6, Neut % (Auto) 78.3, Lymph % (Auto) 14.2, [place] % (Auto) 6.2, Eos % (Auto) 0.5, Baso % (Auto) 0.7, Neut # (Auto) 8.2 H, Lymph # (Auto) 1.5, [place] # (Auto) 0.7, Eos # (Auto) 0.1, Baso # (Auto) 0.1, ESR 102 H 05/31/21 20:55: Sodium 138, Potassium 2.5 L*, Chloride 97 L, Carbon Dioxide 32 H, Anion Gap 11.5, BUN 30 H, Creatinine 1.20 H, Estimated Creat Clear 51, Estimated GFR 43 L, Est GFR ( Amer) 52 L, Glucose 121 H, Calcium 10.8 H, Total Bilirubin 0.5, AST 37 H, ALT 15, Alkaline Phosphatase 111, C-Reactive Protein 23.3 H, Total Protein 7.5, Albumin 4.3, Globulin 3.2, Albumin/Globulin Ratio 1.3, Procalcitonin 0.065 05/31/21 20:55: Lactate 1.3 05/31/21 20:55: SARS-CoV-2 (PCR) Not detected, Influenza A Untype (PCR) Not detected, Influenza Type B (PCR) Not detected Result diagrams: 05/31/21 20:55 05/31/21 20:55 Orders (Tests/Meds): ED MEDICATIONS Discontinued Medications Generic Name Dose Route Start Last Admin Trade Name Freq PRN Reason Stop Dose Admin Dexamethasone Sodium Phosphate 10 mg 05/31/21 20:49 05/31/21 21:00 Dexamethasone 4mg/Ml 5ml Mdv IV 05/31/21 20:50 10 mg ONCE ONE Administration Sodium Chloride 1,000 mls @ 999 mls/hr 05/31/21 21:00 05/31/21 21:00 Sod Chlor 0.9% 1000ml Bag IV 05/31/21 22:00 999 mls/hr .Q1H1M CASI Administration Potassium Chloride 40 meq 05/31/21 21:38 05/31/21 21:40 Potassium Chloride 20meq Tab PO 05/31/21 21:39 40 meq ONCE ONE Administration ORDERS Category Date Time Status Blood Culture Stat Micro 05/31/21 20:55 Received - Radiology Data #1 Image(s): Chest Image Reviewed: Yes I have reviewed radiologist's interpretation Preliminary Findings: Normal/NAD Medical Decision Narrative: has prob bronchitis with sputum but stable exam and vital signs URI/Sore Throat HPI - General Chief Complaint: Upper Respiratory Infection Stated Complaint: cough, congestion Time Seen by Provider: 05/31/21 22:00 Mode of Arrival: Ambulatory Source of Information: Patient, Medical Record Limitations: No Limitations Description of Symptoms (Recalled from ER Triage Doc. by RN): pt c
[2021-05-31 23:11] VITALS: PULSE 72; PULSE 76
[2021-05-31 23:17] VITALS: BP 145/69; PULSE 74; RESP 18; TEMP 36.4; O2SAT 95
== END 2021-05-31 23:35 | disposition home or self-care (01) ==
PROVIDERS: Emergency Provider Emergency Medicine; PCP Internal Medicine
DX: J20.9 Acute bronchitis, unspecified (principal); I48.0 Paroxysmal atrial fibrillation; K21.9 Gastro-esophageal reflux disease without esophagitis; I10 Essential (primary) hypertension; I50.9 Heart failure, unspecified; Z20.822 Contact with and (suspected) exposure to COVID-19; Z88.0 Allergy status to penicillin; Z88.2 Allergy status to sulfonamides
CPT/HCPCS: 71046; 80053; 83605; 84145; 85025; 85651; 86140; 87040; 96365; 96367; 96375; 99284; C9803; U0003; U0005

== ENCOUNTER 2021-07-03 11:14 | Emergency (ER) | payer MEDICARE, SELFPAY ==
[2021-07-03 11:16] VITALS: BP 108/74; PULSE 98; RESP 18; TEMP 36.9; O2SAT 92; BMI 31.6
--- NOTE | 2021-07-03 11:28 | HMH.EDGENADL ---
ED Disposition Clinical Impression: Acute bronchitis Qualifiers: Bronchitis organism: unspecified organism Qualified Code(s): J20.9 - Acute bronchitis, unspecified Disposition: Home, Self-Care Condition on Discharge: Good Instructions: DI for Acute Bronchitis Additional Instructions: Levaquin, Tessalon, prednisone as prescribed. Follow-up with your primary care provider, call today to make follow-up appointment. Quarantine yourself until you obtain your COVID-19 test result. You will be called with the result. Rest, drink plenty of fluids. Tylenol or Ibuprofen for fever and/or aches and pains. Monitor your symptoms. IF YOU HAVE AN EMERGENCY WARNING SIGN (INCLUDING TROUBLE BREATHING), SEEK EMERGENCY MEDICAL CARE IMMEDIATELY. If your Covid test comes back positive: COVID-19 Isolation: People with COVID-19 should isolate for 5 days. Then if they are asymptomatic (no symptoms) or their symptoms are resolving (without fever for 24 hours), follow that by 5 days of wearing a mask when around others to minimize the risk of infecting people you encounter. If you test positive for COVID-19 and never develop symptoms, day 0 is the day of your positive viral test (based on the date you were tested) and day 1 is the first full day after your positive test. If you develop symptoms after testing positive, your 5-day isolation period must start over. Day 0 is your first day of symptoms. Day 1 is the first full day after your symptoms developed. What to do: Stay in a separate room from other household members, if possible. Use a separate bathroom, if possible. Avoid contact with other members of the household and pets. Don?t share personal household items, like cups, towels, and utensils. Wear a mask when around other people if able. Prescriptions: Benzonatate [Benzonatate 100mg cap] 100 mg PO TIDP PRN #15 cap PRN Reason: Cough Transmission Status: Pending to [facility] levoFLOXacin [Levaquin 500mg tab] 500 mg PO DAILY #9 tab Transmission Status: Pending to [facility] predniSONE [Prednisone 20mg Tab] 20 mg PO DAILY #5 tab Transmission Status: Pending to [facility] Referrals: Azael Pritchard [Primary Care Provider] - - Critical Care Critical Care Time: No Attestation: On 07/03/21, the high probability of a clinically significant, sudden or life threatening deterioration of the following system(s) required my full and direct attention, intervention and personal management. The time I documented below is in addition to time spent performing reported procedures but includes the following listed in this critical care notation. Medical Decision Making - Medical Records Medical records reviewed: Yes: I reviewed the patient's medical records. MR Comment: Reviewed most recent pulmonology clinic note 06/19/21 and emergency department note 05/31/21. Per Dr. Damon: Ms. 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 She was started on a Stiolto inhaler at that time and arrangements made for nebulizer. Her emergency department visit was for similar complaints to today and she was diagnosed with bronchitis, treated with Levaquin, prednisone, and Tessalon. - Angel Inquiry Pt receiving controlled substance: No Vital Signs: 07/03/21 11:16 Temperature 98.5 F Temperature Source Oral Pulse Rate [Right Radial] 98 H Respiratory Rate 18 Blood Pressure [Right Arm] 108/74 L Blood Pressure Mean [Right Arm] 85 Blood Pressure Source [Right Arm] Automatic Cuff Blood Pressure Position [Right Arm] Sitting 02 Sat by Pulse Oximetry 92 L Oxygen Delivery Method Room Air Orders (Tests/Meds): ORDERS Category Date Time Status Chest
--- NOTE | 2021-07-03 11:31 | XR_ITS ---
FINAL REPORT CLINICAL HISTORY: SOA, cough COMPARISON: 05/31/21 FINDINGS: SINGLE VIEW CHEST The heart is normal in size. The mediastinum is unremarkable. The lungs are underinflated but clear. There is scarring at the right base which is stable. There is no pneumothorax. IMPRESSION: No acute cardiopulmonary process. Reviewed, Interpreted and Dictated by Jam Wesley MD Transcribed by Jennifer Wright Authenticated by Jam Wesley MD on 07/03/2021 12:57:44 PM [facility]
--- NOTE | 2021-07-03 11:32 | PC.NURSE ---
notified rad of cxr order
--- NOTE | 2021-07-03 11:49 | PC.NURSE ---
RAD HERE FOR CXR
[2021-07-03 13:31] VITALS: BP 96/51; PULSE 70; RESP 20; TEMP 36.7; O2SAT 97
== END 2021-07-03 13:33 | disposition home or self-care (01) ==
PROVIDERS: Emergency Provider Emergency Medicine; PCP Internal Medicine
DX: U07.1 COVID-19 (principal); J20.9 Acute bronchitis, unspecified; F41.8 Other specified anxiety disorders; I48.91 Unspecified atrial fibrillation; K21.9 Gastro-esophageal reflux disease without esophagitis; Z88.0 Allergy status to penicillin; Z88.2 Allergy status to sulfonamides
CPT/HCPCS: 71045; 99283; C9803; U0003; U0005

== ENCOUNTER → 2021-08-20 13:13 | Outpatient (CLI) | payer MEDICARE, SELFPAY ==
[2021-08-20 15:09] LABS: Basophils # 0.1 K/mm3 (0-0.2); Basophils % 1.1 % (0.1-2.0); Eosinophils # 0.4 K/mm3 (0.0-0.4); Eosinophils % 6.5 % (0.1-12.0); Hematocrit 39.6 % (37.0-47.0); Hemoglobin 12.8 g/dL (12.2-16.2); Lymphocytes # 1.2 K/mm3 (0.7-4.5); Lymphocytes % 19.3 % (10-50); Mean Corpuscular HGB Conc 32.3 g/dL (31.8-35.4); Mean Corpuscular Hemoglobin 31.6 pg (27.0-31.2); Mean Corpuscular Volume 97.8 fl (81-99); Mean Platelet Volume 8.6 fl (7.4-10.4); Monocytes # 0.4 K/mm3 (0.1-1.0); Neutrophils % 66.2 % (37.0-80.0); Platelet Count 330 K/mm3 (142-424); Red Blood Count 4.05 M/mm3 (4.20-5.40); Red Cell Distribution Width 14.2 % (11.5-17.5)
[2021-08-20 16:22] LABS: Erythrocyte Sedimentation Rate 116 mm/hr (0-30)
[2021-08-20 16:36] LABS: Alanine Aminotransferase 13 U/L (12-78); Albumin Level 4.1 g/dl (3.5-5.0); Albumin/Globulin Ratio 1.6 (1.1-1.8); Alkaline Phosphatase 79 U/L (38-126); Anion Gap 9.5 mEq/L (5-15); Aspartate Amino Transferase 23 U/L (14-36); Bilirubin,Total 0.6 mg/dl (0.2-1.3); Blood Urea Nitrogen 29 mg/dl (7-17); Calcium 9.8 mg/dl (8.4-10.2); Carbon Dioxide 28 mmol/L (22.0-30.0); Chloride 107 mmol/L (98-107); Chol/HDL Ratio 3.1 (1-3.5); Cholesterol 223 mg/dl (140-200); Estimated Glomerular Filt Rate 69 ml/min (>60); GFR (African American) 83 ML/MIN (>60); Globulin 2.6 g/dL (1.3-3.2); Glucose 81 mg/dl (74-100); HDL Cholesterol 71 mg/dl (40-60); Potassium 4.5 mmoL/L (3.5-5.1); Sodium 140 mmol/L (136-145); Total Protein,Serum 6.7 g/dl (6.3-8.2); Triglycerides 208 mg/dl (30-150); VLDL Cholesterol 42 mg/dL (0-40)
[2021-08-20 16:52] LABS: Direct LDL Cholesterol 94.49 mg/dL (100-129)
[2021-08-20 17:11] LABS: Thyroid Stimulating Hormone 1.72 uIU/mL (0.465-4.68)
[2021-08-20 18:27] LABS: 25-OH Vitamin D, Total 79.2 ng/mL (30-100)
== END ==
PROVIDERS: Visit Provider Internal Medicine
DX: I11.0 Hypertensive heart disease with heart failure (principal); I50.32 Chronic diastolic (congestive) heart failure; I87.2 Venous insufficiency (chronic) (peripheral); M35.3 Polymyalgia rheumatica; E66.9 Obesity, unspecified; Z68.31 Body mass index [BMI] 31.0-31.9, adult
CPT/HCPCS: 80053; 80061; 82306; 84443; 85025; 85651

== ENCOUNTER → 2021-10-28 14:42 | Outpatient (CLI) | payer MEDICARE, SELFPAY ==
--- NOTE | 2021-10-28 14:47 | XR_ITS ---
FINAL REPORT CLINICAL HISTORY: SOB COMPARISON: July 03, 2021 FINDINGS: PA and lateral views of the chest were obtained. The cardiac and mediastinal silhouettes are within normal limits. Biapical pleural scarring is slightly asymmetric to the right and likely stable. Again seen are bilateral lower lung opacities likely a combination of atelectasis and scarring. There is no new infiltrate. There is no pleural effusion or pneumothorax. No acute osseous abnormality is identified. IMPRESSION: Bilateral lower lung opacities likely a combination of atelectasis and scarring. Reviewed, Interpreted and Dictated by Paula Cortes MD Transcribed by Judd Gandhi Authenticated by Paula Cortes MD on 10/28/2021 04:18:06 PM [facility]
== END ==
PROVIDERS: PCP Internal Medicine; Visit Provider Internal Medicine
DX: R06.02 Shortness of breath (principal); R05.8 Other specified cough; U09.9 Post COVID-19 condition, unspecified
CPT/HCPCS: 71046

== ENCOUNTER → 2021-11-18 11:43 | Outpatient (CLI) | payer MEDICARE, SELFPAY ==
[2021-11-18 15:01] LABS: Basophils % 0.6 % (0.1-2.0); Eosinophils # 0.2 K/mm3 (0.0-0.4); Eosinophils % 2.1 % (0.1-12.0); Hematocrit 40.3 % (37.0-47.0); Hemoglobin 13.6 g/dL (12.2-16.2); Lymphocytes # 1.4 K/mm3 (0.7-4.5); Mean Corpuscular HGB Conc 33.6 g/dL (31.8-35.4); Mean Corpuscular Hemoglobin 30.9 pg (27.0-31.2); Mean Platelet Volume 7.5 fl (7.4-10.4); Monocytes # 0.6 K/mm3 (0.1-1.0); Monocytes % 8.6 % (1.7-9.3); Neutrophils # 4.8 K/mm3 (1.8-7.8); Neutrophils % 68.7 % (37.0-80.0); Platelet Count 297 K/mm3 (142-424); Red Blood Count 4.39 M/mm3 (4.20-5.40); Red Cell Distribution Width 13.3 % (11.5-17.5)
[2021-11-18 15:37] LABS: Anion Gap 10.6 mEq/L (5-15); Blood Urea Nitrogen 26 mg/dl (7-17); Carbon Dioxide 33 mmol/L (22.0-30.0); Chloride 102 mmol/L (98-107); Estimated Glomerular Filt Rate 53 ml/min (>60); GFR (African American) 64 ML/MIN (>60); Glucose 78 mg/dl (74-100); Potassium 4.6 mmoL/L (3.5-5.1); Sodium 141 mmol/L (136-145)
[2021-11-20 13:10] LABS: CEA 2.7 ng/mL (0.0-4.7)
== END ==
PROVIDERS: PCP Internal Medicine; Visit Provider Internal Medicine
DX: D50.9 Iron deficiency anemia, unspecified (principal); Z85.038 Personal history of other malignant neoplasm of large intestine
CPT/HCPCS: 80048; 82378; 85025

== ENCOUNTER → 2021-11-19 20:31 | Outpatient (CLI) | payer MEDICARE, SELFPAY | PROVIDERS: PCP Internal Medicine; Visit Provider Specialist | DX: G47.33 Obstructive sleep apnea (adult) (pediatric) (principal); R09.02 Hypoxemia; R06.83 Snoring | CPT/HCPCS: 95811 ==

== ENCOUNTER 2022-02-08 14:54 | Emergency (ER) | payer MEDICARE, SELFPAY ==
[2022-02-08 14:55] VITALS: BP 120/64; PULSE 100; RESP 20; TEMP 36.8; O2SAT 95; BMI 34.3
[2022-02-08 15:00] VITALS: BP 120/64; PULSE 100; RESP 20; TEMP 36.8; O2SAT 95; BMI 34.1
--- NOTE | 2022-02-08 15:28 | EXP.UTC ---
Discharge Plan Disposition Patient Disposition: Home, Self-Care Condition: Good Prescriptions Prescriptions: New tizanidine 4 mg capsule 4 mg PO HS PRN (Reason: muscle spasticity) Qty: 7 0RF No Action omega-3 fatty acids 1,000 mg capsule 1,000 mg PO DAILY Centrum Women 18-400 mg-mcg tablet 1 tab PO DAILY zinc acetate 50 mg (zinc) capsule 50 mg PO DAILY Rx Instructions: swallow whole; do not chew/break/dissolve/open polysaccharide iron complex [iFerex 150] 150 mg iron capsule 150 mg PO DAILY Rx Instructions: avoid dairy/calcium-containing products and/or antacids for at least 2 hrs before and after dose famotidine 20 mg tablet 20 mg PO BID alendronate 70 mg tablet 70 mg PO WEEKLY rosuvastatin 10 mg tablet 10 mg PO DAILY prednisone 10 mg tablet 10 mg PO DAILY Stiolto Respimat 2.5-2.5 mcg/actuation mist 2 puff INHALATION DAILY 90 Days Qty: 4 3RF albuterol sulfate 90 mcg/actuation HFA aerosol inhaler 1 inh INHALATION Q6H PRN (Reason: shortness of breath or wheezing) 90 Days Qty: 8.5 3RF cyanocobalamin (vitamin B-12) 1,000 mcg/mL solution 1,000 mcg IM WEEKLY ascorbic acid (vitamin C) 1,000 mg tablet 1 g PO Q6H lorazepam 0.5 mg tablet 0.5 mg PO PRN ipratropium-albuterol 0.5 mg-3 mg(2.5 mg base)/3 mL solution for nebulization 3 ml INHALATION Q6H PRN (Reason: shortness of breath or wheezing) Qty: 360 6RF carbidopa-levodopa 25-100 mg tablet extended release 1 tab PO QID levothyroxine 75 MCG tablet 75 mcg PO DAILY citalopram 20 MG tablet 20 mg PO DAILY potassium chloride 20 MEQ tablet 20 meq PO BID bumetanide 1 MG tablet 1 mg PO BID cyanocobalamin (vitamin B-12) 5,000 mcg capsule 5,000 mcg PO WEEKLY Referrals Follow up/Referrals: Azael Pritchard MD [Primary Care Provider] - See instructions Neto Velazquez MD [Staff Physician] - See instructions Activity Restrictions/Add. Instructions Additional Instructions/Restrictions: Warm compresses to area may help with pain and discomfor Take medication as prescribed Be careful getting up with Tizanidine it may make you drowsy Follow up with Family Doctor or Dr Velazquez if symptoms persist Clinical Impressions Clinical Impression: Sciatica Instructions Patient Instructions: DI for Sciatica, Sciatica, Tizanidine Discharge ED Provider: Mattie Mariscal [facility] [place] HPI General Stated complaint: back pain Mode of Arrival: Ambulatory Source of Information: Patient Limitations: No Limitations Time Seen by Provider: 02/08/22 15:31 Description of Symptoms (Recalled from Triage Doc. by RN): PATIENT C/O LOWER BACK PAIN AND TENDERNESS THAT RADIATES DOWN LEFT LEG X 4 WEEKS. SHE REPORTS SEEING HER PCP FOR SAME SYMPTOMS AND HE TREATED HER WITH A SHOT AND ORAL PREDNISONE HEENT Symptoms (Recalled from RN notes): No Resp Symptoms (Recalled from RN notes): No Skin Symptoms (Recalled from RN notes): No MS Symptoms (Recalled from RN notes): Yes Functional Status (Recalled from RN notes): WNL History of Present Illness Provider Complaint: Patient states that she has history of sciatica States she seen her PCP about a month ago and got a shot and some oral steriods and it got better States that now it is back States that she is having pain in her right buttock area that is radiating down into her right leg States that pain is worse if she sits or lays on that side Denies new injury denies loss of control of bowel or bladder Related Data Home Medications Medication Instructions Recorded Confirmed bumetanide 1 mg tablet 1 mg PO BID Diuretic 04/11/18 01/15/22 citalopram 20 mg tablet 20 mg PO DAILY Depression 04/11/18 01/15/22 potassium chloride 20 mEq 20 meq PO BID potassium replacement 04/11/18 01/15/22 tablet,extended release(part/cryst) famotidine 20 mg tablet 20 mg PO BID Acid reflux 11/18/19 01/15/22 multivitamin-ferrous 1 tab PO DAILY Supplement
[2022-02-08 15:53] VITALS: BP 120/64; PULSE 100; RESP 20; TEMP 36.8; O2SAT 95
== END 2022-02-08 16:02 | disposition home or self-care (01) ==
PROVIDERS: Emergency Provider Nurse Practitioner; PCP Internal Medicine
DX: M54.41 Lumbago with sciatica, right side (principal)
CPT/HCPCS: 99212; G0463

== ENCOUNTER 2022-02-14 13:15 | Emergency (ER) | payer MEDICARE, SELFPAY ==
[2022-02-14] VITALS (8 sets, daily range): BP systolic 110–134; BP diastolic 72–87; PULSE 87–112; RESP 18–20; TEMP 36.5–36.8; O2SAT 92–96; BMI 33.3
--- NOTE | 2022-02-14 13:37 | PC.NURSE ---
Rn in room for triage
--- NOTE | 2022-02-14 13:42 | CT_ITS ---
FINAL REPORT TECHNIQUE: After the administration of intravenous contrast, axial images were obtained through the abdomen and pelvis by computed tomography. This study was performed with technique to keep radiation doses as low as reasonably achievable, (ALARA). Individualized dose reduction techniques using automated exposure control or adjustment of the MA and/or KV according to the patient's size were employed. CLINICAL HISTORY: diffuse severe abd pain FINDINGS: Abdomen: There is bibasilar atelectasis or scarring at the lung bases. Patient is status post cholecystectomy. There is mild biliary ductal dilatation likely due to cholecystectomy change. The liver is normal in size and attenuation. There is a small amount of free fluid in the right perihepatic space. The spleen is unremarkable. The adrenals are normal. The pancreas is unremarkable. There are small bilateral renal cysts. The aorta is normal in caliber. There are postoperative changes in the left abdomen with likely partial colectomy. There is descending and sigmoid diverticulosis. Inflammatory changes are seen adjacent to the mid sigmoid colon with a moderate to large amount of extraluminal air in this region consistent with acute, perforated diverticulitis. There is no well-defined fluid collection to suggest abscess. Pelvis: The appendix is not identified. Patient is status post hysterectomy. There is wall thickening of small bowel loops in the pelvis likely due to secondary inflammation. There is umbilical hernia containing a small loop without evidence of small-bowel obstruction. The urinary bladder is unremarkable. There is no free fluid or adenopathy. IMPRESSION: Acute, sigmoid diverticulitis without well-defined fluid collection to suggest abscess. Umbilical hernia containing a small bowel loop without evidence of small-bowel obstruction. Reviewed, Interpreted and Dictated by Yaakov Gardner III, MD Transcribed by Carey Husain Authenticated and . [facility]
--- NOTE | 2022-02-14 14:19 | ECG_ITS ---
APPROVED REPORT Exam: Resting ECG HR:108 bpm ECG Measurements Heart Rate 108 AXES OH 170 P 52 QRSd 100 QRS -64 QT 348 T 63 QTc 411 Conclusion SINUS TACHYCARDIA POSSIBLE LEFT ATRIAL ENLARGEMENT [-0.1mV P-WAVE IN V1/V2] LEFT ANTERIOR FASCICULAR BLOCK [QRS AXIS <= -45, QR IN I, RS IN II] POSSIBLE LEFT VENTRICULAR HYPERTROPHY [VOLTAGE CRITERIA PLUS LAE OR QRS WIDENING] POSSIBLE ANTEROSEPTAL MYOCARDIAL INFARCTION , OF INDETERMINATE AGE [30 ms Q WAVE IN V1-V4] ABNORMAL ECG UNCONFIRMED REPORT Electronically signed by : Anthony Dc MD 02/16/2022 15:27:23
[2022-02-14 14:23] LABS: Basophils # 0.1 K/mm3 (0-0.2); Basophils % 0.9 % (0.1-2.0); Eosinophils % 0.5 % (0.1-12.0); Hematocrit 45.1 % (37.0-47.0); Hemoglobin 14.6 g/dL (12.2-16.2); Lymphocytes % 15.3 % (10-50); Mean Corpuscular HGB Conc 32.3 g/dL (31.8-35.4); Mean Corpuscular Hemoglobin 32.1 pg (27.0-31.2); Mean Corpuscular Volume 99.6 fl (81-99); Mean Platelet Volume 15.2 fl (7.4-10.4); Monocytes # 0.2 K/mm3 (0.1-1.0); Monocytes % 3.2 % (1.7-9.3); Neutrophils # 5.3 K/mm3 (1.8-7.8); Neutrophils % 80.2 % (37.0-80.0); Platelet Count 284 K/mm3 (142-424); Red Blood Count 4.53 M/mm3 (4.20-5.40); Red Cell Distribution Width 16.4 % (11.5-17.5); White Blood Count 6.6 K/mm3 (4.8-10.8)
[2022-02-14 14:28] LABS: Chloride 98 mmol/L (98-107); Potassium 3.2 mmoL/L (3.5-5.1); Sodium 140 mmol/L (136-145)
[2022-02-14 14:31] LABS: Alanine Aminotransferase 14 U/L (12-78); Albumin Level 3.8 g/dl (3.5-5.0); Albumin/Globulin Ratio 1.2 (1.1-1.8); Alkaline Phosphatase 163 U/L (38-126); Anion Gap 10.2 mEq/L (5-15); Aspartate Amino Transferase 32 U/L (14-36); Bilirubin,Total 0.5 mg/dl (0.2-1.3); Blood Urea Nitrogen 36 mg/dl (7-17); Calcium 9.5 mg/dl (8.4-10.2); Carbon Dioxide 35 mmol/L (22.0-30.0); Creatinine Clearance Estimated 62 mL/min (50-200); Estimated Glomerular Filt Rate 60 ml/min (>60); GFR (African American) 73 ML/MIN (>60); Globulin 3.3 g/dL (1.3-3.2); Glucose 86 mg/dl (74-100); Lipase 69 U/L (23-300); Total Protein,Serum 7.1 g/dl (6.3-8.2)
[2022-02-14 14:33] LABS: Lactic Acid 2.5 mmol/L (0.7-2.1)
[2022-02-14 14:38] LABS: Prothrombin Time 9.8 seconds (10.1-12.5)
--- NOTE | 2022-02-14 15:18 | PC.NURSE ---
pt at rad
--- NOTE | 2022-02-14 15:44 | HMH.EDGENADL ---
Discharge Plan Disposition Patient Disposition: Xfer Other Condition: Serious Chief Complaint: Abdominal Pain Prescriptions Prescriptions: No Action omega-3 fatty acids 1,000 mg capsule 1,000 mg PO DAILY Centrum Women 18-400 mg-mcg tablet 1 tab PO DAILY zinc acetate 50 mg (zinc) capsule 50 mg PO DAILY Rx Instructions: swallow whole; do not chew/break/dissolve/open polysaccharide iron complex [iFerex 150] 150 mg iron capsule 150 mg PO DAILY Rx Instructions: avoid dairy/calcium-containing products and/or antacids for at least 2 hrs before and after dose famotidine 20 mg tablet 20 mg PO BID alendronate 70 mg tablet 70 mg PO WEEKLY rosuvastatin 10 mg tablet 10 mg PO DAILY prednisone 10 mg tablet 10 mg PO DAILY Stiolto Respimat 2.5-2.5 mcg/actuation mist 2 puff INHALATION DAILY 90 Days Qty: 4 3RF albuterol sulfate 90 mcg/actuation HFA aerosol inhaler 1 inh INHALATION Q6H PRN (Reason: shortness of breath or wheezing) 90 Days Qty: 8.5 3RF cyanocobalamin (vitamin B-12) 1,000 mcg/mL solution 1,000 mcg IM WEEKLY ascorbic acid (vitamin C) 1,000 mg tablet 1 g PO Q6H lorazepam 0.5 mg tablet 0.5 mg PO PRN ipratropium-albuterol 0.5 mg-3 mg(2.5 mg base)/3 mL solution for nebulization 3 ml INHALATION Q6H PRN (Reason: shortness of breath or wheezing) Qty: 360 6RF carbidopa-levodopa 25-100 mg tablet extended release 1 tab PO QID levothyroxine 75 MCG tablet 75 mcg PO DAILY tizanidine 4 mg capsule 4 mg PO HS PRN (Reason: muscle spasticity) Qty: 7 0RF citalopram 20 MG tablet 20 mg PO DAILY potassium chloride 20 MEQ tablet 20 meq PO BID bumetanide 1 MG tablet 1 mg PO BID cyanocobalamin (vitamin B-12) 5,000 mcg capsule 5,000 mcg PO WEEKLY Referrals Follow up/Referrals: Azael Pritchard MD [Primary Care Provider] - See instructions Clinical Impressions Clinical Impression: Perforation of sigmoid colon due to diverticulitis Stand Alone Forms Stand Alone Forms: Transfer Record - ED Discharge ED Provider: Katirji,Darshana Y General Adult HPI General Chief complaint: Abdominal Pain Stated complaint: ABD PAIN Time Seen by Provider: 02/14/22 13:37 Mode of Arrival: Wheelchair Source of Information: Patient Limitations: No Limitations Description of Symptoms (Recalled from ER Triage Doc. by RN): pt to ed c/o generalized abd pain. pt states she had a previous hernia surgery and has a current umbilical hernia. pt states she was using the restroom this morning and started feeling a pain shooting from her rectum to her left flank. pt describes it as sharp in nature. History of Present Illness HPI narrative: The patient is an 84 year old female who presents with abdominal pain. The patient states that this morning she was trying to have a bowel movement and had sudden onset diffuse abdominal pain. She then presented to the ED. No N/V/D. No chest pain or shortness of breath. 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 Related Data Home Medications Medication Instructions Recorded Confirmed bumetanide 1 mg tablet 1 mg PO BID Diuretic 04/11/18 01/15/22 citalopram 20 mg tablet 20 mg PO DAILY Depression 04/11/18 01/15/22 potassium chloride 20 mEq 20 meq PO BID potassium replacement 04/11/18 01/15/22 tablet,extended release(part/cryst) famotidine 20 mg tablet 20 mg PO BID Acid reflux 11/18/19 01/15/22 multivitamin-ferrous 1 tab PO DAILY Supplement 11/18/19 01/15/22 fumarate-folic acid 18 mg-400 mcg tablet (Centrum Women) omega-3 fatty acids 1,000 mg 1,000 mg PO DAILY Cholesterol 11/18/19 01/15/22 capsule polysaccharide iron complex 150 mg 150 mg PO DAILY Iron Supplement 11/18/19 01/15/22 iron capsule (iFerex 150) zinc acetate 50 mg (zinc) capsule 50 mg PO DAILY Supplement 11/18/19 01/15/22 carbidopa ER 25 mg-levodopa 100 mg 1 tab PO QID Gabriel
--- NOTE | 2022-02-14 15:46 | PC.NURSE ---
MARCUS LEFT FOR RADIOLOGIST TO CALL DR MCDANIEL FOR READING
--- NOTE | 2022-02-14 15:54 | PC.NURSE ---
ISMAEL HOLBROOK speaking with radiologist
--- NOTE | 2022-02-14 15:56 | PC.NURSE ---
ER at speaking with pt and family about CT scan results and POC
--- NOTE | 2022-02-14 16:00 | PC.NURSE ---
called [facility] for pending transfer
--- NOTE | 2022-02-14 16:48 | PC.NURSE ---
ISMAEL HOLBROOK speaking with [facility]
--- NOTE | 2022-02-14 16:54 | PC.NURSE ---
pt accepted to [facility] by Dr. Blevins. ISMAEL HOLBROOK states they told her would be going to pre-op area.
--- NOTE | 2022-02-14 16:55 | PC.NURSE ---
contacted radiology for disc of images
--- NOTE | 2022-02-14 16:59 | PC.NURSE ---
[facility] called requesting a face sheet with full ssn be faxed to them on pt. States someone would be calling back to get report on pt.
--- NOTE | 2022-02-14 17:31 | PC.NURSE ---
spoke with monique adair RN at [facility] for report
--- NOTE | 2022-02-14 17:33 | PC.NURSE ---
[facility] here for transport
[2022-02-14 18:33] LABS: Reflex Lactic Add Lactic Reflex
== END 2022-02-14 17:50 | disposition other institution (70) ==
PROVIDERS: Emergency Provider Emergency Medicine; PCP Internal Medicine
DX: K57.20 Diverticulitis of large intestine with perforation and abscess without bleeding (principal); R06.02 Shortness of breath; M62.838 Other muscle spasm; K42.9 Umbilical hernia without obstruction or gangrene; J45.909 Unspecified asthma, uncomplicated; Z48.815 Encounter for surgical aftercare following surgery on the digestive system; Z79.51 Long term (current) use of inhaled steroids; Z79.52 Long term (current) use of systemic steroids; Z79.899 Other long term (current) drug therapy; Z88.0 Allergy status to penicillin; Z88.2 Allergy status to sulfonamides; Z88.8 Allergy status to other drugs, medicaments and biological substances
CPT/HCPCS: 74177; 80053; 83605; 83690; 85025; 85610; 93005; 96361; 96374; 96375; 99285; J2405; Q9967

== ENCOUNTER → 2022-07-14 13:09 | Outpatient (CLI) | payer MEDICARE, SELFPAY ==
--- NOTE | 2022-07-14 13:14 | XR_ITS ---
FINAL REPORT TECHNIQUE: Chest PA & Lateral CLINICAL HISTORY: Cough COMPARISON: 10/28/2021 FINDINGS: 2 views of the chest were performed. The heart size is normal. The mediastinum is within normal limits. There is no acute cardiopulmonary process. There is scarring at the lung bases. There are no pleural effusions. There is no pneumothorax. The bony thorax appears intact. IMPRESSION: No acute cardiopulmonary process. Reviewed, Interpreted and Dictated by Jam Wesley MD Transcribed by Donna Ragsdale Authenticated and [facility]
== END ==
PROVIDERS: PCP Internal Medicine; Visit Provider Internal Medicine Pulmonary Disease
DX: R06.02 Shortness of breath (principal)
CPT/HCPCS: 71046

== ENCOUNTER 2022-07-23 16:59 | Emergency (ER) | payer MEDICARE, SELFPAY ==
[2022-07-23] VITALS (7 sets, daily range): BP systolic 128–143; BP diastolic 82–90; PULSE 69–88; RESP 17–24; TEMP 36.6–36.8; O2SAT 90–96; BMI 34.2
--- NOTE | 2022-07-23 17:10 | ECG_ITS ---
APPROVED REPORT Exam: Resting ECG HR:84 bpm ECG Measurements Heart Rate 84 AXES TN 135 P 43 QRSd 99 QRS -60 QT 362 T 47 QTc 403 Conclusion SINUS RHYTHM MODERATE VOLTAGE CRITERIA FOR LVH Late R wave progression ABNORMAL ECG UNCONFIRMED REPORT Electronically signed by : Anthony Dc MD 07/23/2022 18:34:53
--- NOTE | 2022-07-23 17:13 | HMH.EDGENADL ---
Discharge Plan Disposition Patient Disposition: Home, Self-Care Condition: Good Prescriptions Prescriptions: New azithromycin 250 mg tablet See Rx Instructions .ROUTE .COMPLEX Qty: 6 0RF Rx Instructions: For 250 mg dose pack: take 500 mg today (day 1), then 250 mg for 4 days (days 2-5) prednisone 20 mg tablet 20 mg PO DAILY 7 Days Qty: 7 0RF hydrocodone-acetaminophen 5-325 mg tablet 1 tab PO Q8H PRN (Reason: pain) Qty: 7 0RF tizanidine [Zanaflex] 4 mg capsule 4 mg PO Q8H PRN (Reason: muscle spasticity) Qty: 14 0RF No Action metronidazole 500 mg tablet 500 mg PO TID cefdinir 300 mg capsule 300 mg PO BID fluticasone propionate [Flonase Allergy Relief] 50 mcg/actuation spray,suspension 2 spray intranasal DAILY 90 Days Qty: 16 3RF Rx Instructions: administer into each nostril benzonatate 100 mg capsule 100 mg PO BID PRN (Reason: cough) Qty: 30 0RF azelastine 137 mcg (0.1 %) aerosol,spray 2 spray intranasal HS 90 Days Qty: 30 3RF Rx Instructions: administer into each nostril omega-3 fatty acids 1,000 mg capsule 1,000 mg PO DAILY Centrum Women 18-400 mg-mcg tablet 1 tab PO DAILY zinc acetate 50 mg (zinc) capsule 50 mg PO DAILY Rx Instructions: swallow whole; do not chew/break/dissolve/open polysaccharide iron complex [iFerex 150] 150 mg iron capsule 150 mg PO DAILY Rx Instructions: avoid dairy/calcium-containing products and/or antacids for at least 2 hrs before and after dose prednisone 10 mg tablet 10 mg PO BID ascorbic acid (vitamin C) 1,000 mg tablet 1 g PO DAILY pantoprazole [Protonix] 40 mg tablet,delayed release (DR/EC) 40 mg PO DAILY Eliquis 2.5 mg tablet 2.5 mg PO BID donepezil [Aricept] 5 mg tablet 5 mg PO HS Stiolto Respimat 2.5-2.5 mcg/actuation mist 2 puff INHALATION DAILY 90 Days Qty: 4 3RF mirtazapine [Remeron] 15 mg tablet 7.5 mg PO HS albuterol sulfate 90 mcg/actuation HFA aerosol inhaler 1 inh INHALATION .COMPLEX Rx Instructions: 1 inh inhaled bid; cyanocobalamin (vitamin B-12) 1,000 mcg/mL solution 1,000 mcg IM WEEKLY furosemide 20 mg tablet 20 mg PO DAILY cholecalciferol (vitamin D3) 25 mcg (1,000 unit) capsule 25 mcg PO DAILY Caltrate 600 plus D 600 mg-20 mcg (800 unit) tablet,chewable 1 tab PO DAILY Niferex (Sumalate-Quatrefolic) 150 mg iron- 60 mg-1 mg tablet 1 tab PO DAILY ipratropium-albuterol 0.5 mg-3 mg(2.5 mg base)/3 mL solution for nebulization 3 ml INHALATION Q6H PRN (Reason: shortness of breath or wheezing) Qty: 360 6RF carbidopa-levodopa 25-100 mg tablet extended release 1 tab PO QID levothyroxine 75 MCG tablet 75 mcg PO DAILY tizanidine 4 mg capsule 4 mg PO HS PRN (Reason: muscle spasticity) Qty: 7 0RF citalopram 20 MG tablet 20 mg PO DAILY potassium chloride 20 mEq tablet,ER particles/crystals 20 meq PO BID PRN (Reason: potassium replacement) Referrals Follow up/Referrals: Azael Pritchard MD [Primary Care Provider] - See instructions Activity Restrictions/Add. Instructions Additional Instructions/Restrictions: Return for worsening shortness of air or other concerns. Follow-up promptly with your primary care provider. Clinical Impressions Clinical Impression: Acute bronchitis, COPD (chronic obstructive pulmonary disease) Discharge ED Provider: Ganesh Casarez General Adult HPI General Chief complaint: Shortness of Breath/Dyspnea Stated complaint: sore throat shortness of breath Time Seen by Provider: 07/23/22 17:09 History of Present Illness HPI narrative: Patient presents with a 1 week history of sinus drainage and productive cough. She has some sore throat. She has a history of COPD and is chronically dyspneic and she states is at her baseline level of breathing and denies worsening of her difficulty breathing. She denies chest p
--- NOTE | 2022-07-23 17:23 | PC.NURSE ---
Respiratory at BS
--- NOTE | 2022-07-23 17:25 | XR_ITS ---
PROCEDURE INFORMATION: Exam: XR Chest Exam date and time: 07/23/2022 5:43 PM Age: 81 years old Clinical indication: Cough and shortness of breath; Additional info: SOA & cough TECHNIQUE: Imaging protocol: Radiologic exam of the chest. Views: 1 view. COMPARISON: 1. CR XR CHEST 2V 07/14/2022 1:17 PM 2. CR XR CHEST 2V 05/31/2021 9:01 PM FINDINGS: Lungs: Hypoaeration of the lungs lung bases. Stable chronic right basilar opacities, likely atelectasis/scarring. No new areas of consolidation. Pleural spaces: Chronic blunting of the right costophrenic angle. No pneumothorax. Heart/Mediastinum: Stable cardiomediastinal silhouette. Bones/joints: No acute abnormality. IMPRESSION: Stable chronic changes with no acute abnormality.
[2022-07-23 17:45] LABS: Coronavirus 19, PCR Not Detected (NotDetected); Influenza A, PCR Not Detected (NotDetected); Influenza B, PCR Not Detected (NotDetected)
[2022-07-23 17:49] LABS: Basophils % 0.2 % (0.1-2.0); Eosinophils % 0.3 % (0.1-12.0); Hematocrit 44.3 % (37.0-47.0); Hemoglobin 14.1 g/dL (12.2-16.2); Lymphocytes # 0.4 K/mm3 (0.7-4.5); Lymphocytes % 3.3 % (10-50); Mean Corpuscular HGB Conc 31.9 g/dL (31.8-35.4); Mean Corpuscular Hemoglobin 30.6 pg (27.0-31.2); Monocytes # 0.4 K/mm3 (0.1-1.0); Monocytes % 2.8 % (1.7-9.3); Neutrophils % 93.3 % (37.0-80.0); Platelet Count 322 K/mm3 (142-424); Red Blood Count 4.62 M/mm3 (4.20-5.40); Red Cell Distribution Width 15.5 % (11.5-17.5); White Blood Count 12.9 K/mm3 (4.8-10.8)
[2022-07-23 18:06] LABS: Alanine Aminotransferase 18 U/L (12-78); Albumin Level 3.7 g/dl (3.5-5.0); Albumin/Globulin Ratio 1.3 (1.1-1.8); Alkaline Phosphatase 91 U/L (38-126); Anion Gap 6.6 mEq/L (5-15); Aspartate Amino Transferase 29 U/L (14-36); Bilirubin,Total 0.4 mg/dl (0.2-1.3); Blood Urea Nitrogen 35 mg/dl (7-17); Calcium 10.3 mg/dl (8.4-10.2); Carbon Dioxide 30 mmol/L (22.0-30.0); Chloride 107 mmol/L (98-107); Creatinine Clearance Estimated 58 mL/min (50-200); Estimated Glomerular Filt Rate 48 ml/min (>60); GFR (African American) 58 ML/MIN (>60); Globulin 2.9 g/dL (1.3-3.2); Glucose 124 mg/dl (74-100); Potassium 4.6 mmoL/L (3.5-5.1); Sodium 139 mmol/L (136-145); Total Protein,Serum 6.6 g/dl (6.3-8.2)
[2022-07-23 18:07] LABS: MANUAL DIFFERENTIAL MANUAL DIFFERENTIAL (MANUAL DIFF)
[2022-07-23 18:18] LABS: NT Pro Brain Natriuretic Pep. 51.8 pg/mL (0-450)
[2022-07-23 18:21] LABS: Troponin I < 0.01 ng/ml (0.00-0.034)
--- NOTE | 2022-07-23 18:36 | PC.NURSE ---
ISMAEL HOLBROOK at for update on POC; Daughter at
[2022-07-23 18:52] LABS: Lymphocytes % 10 % (10-50); Monocytes % 2 % (2-9); Neutrophils % 88 % (42-76); Total Cells Counted 100
[2022-07-23 18:53] LABS: Hypochromasia 1+; Macrocytosis 1+; Platelet Estimate Normal
[2022-07-23 19:16] LABS: Strep Scrn Group A (Rapid) Negative (Negative)
== END 2022-07-23 20:29 | disposition home or self-care (01) ==
PROVIDERS: Emergency Provider Emergency Medicine; PCP Internal Medicine
DX: J20.9 Acute bronchitis, unspecified (principal); J44.9 Chronic obstructive pulmonary disease, unspecified; J45.909 Unspecified asthma, uncomplicated; Z90.49 Acquired absence of other specified parts of digestive tract; Z90.710 Acquired absence of both cervix and uterus; Z20.822 Contact with and (suspected) exposure to COVID-19
CPT/HCPCS: 71045; 80053; 83880; 84484; 85007; 85025; 87430; 93005; 99285; C9803; U0003; U0005

== ENCOUNTER → 2022-08-18 14:48 | Outpatient (CLI) | payer MEDICARE, SELFPAY ==
[2022-08-18 16:01] LABS: Basophils # 0.1 K/mm3 (0-0.2); Basophils % 0.6 % (0.1-2.0); Eosinophils # 0.1 K/mm3 (0.0-0.4); Eosinophils % 0.5 % (0.1-12.0); Hematocrit 41.8 % (37.0-47.0); Hemoglobin 13.5 g/dL (12.2-16.2); Lymphocytes # 0.8 K/mm3 (0.7-4.5); Lymphocytes % 7.9 % (10-50); Mean Corpuscular HGB Conc 32.3 g/dL (31.8-35.4); Mean Corpuscular Hemoglobin 31.4 pg (27.0-31.2); Mean Corpuscular Volume 97.3 fl (81-99); Mean Platelet Volume 7.6 fl (7.4-10.4); Monocytes # 0.7 K/mm3 (0.1-1.0); Monocytes % 6.8 % (1.7-9.3); Neutrophils # 8.2 K/mm3 (1.8-7.8); Neutrophils % 84.2 % (37.0-80.0); Platelet Count 281 K/mm3 (142-424); Red Cell Distribution Width 16.8 % (11.5-17.5); White Blood Count 9.7 K/mm3 (4.8-10.8)
[2022-08-18 16:26] LABS: C-Reactive Protein 1.1 mg/L (0-4)
[2022-08-18 17:33] LABS: Erythrocyte Sedimentation Rate 39 mm/hr (0-30)
== END ==
PROVIDERS: PCP Internal Medicine; Visit Provider Internal Medicine Infectious Disease
DX: R78.81 Bacteremia (principal); B96.7 Clostridium perfringens [C. perfringens] as the cause of diseases classified elsewhere; K57.20 Diverticulitis of large intestine with perforation and abscess without bleeding; K65.3 Choleperitonitis
CPT/HCPCS: 36415; 85025; 85651; 86140

== ENCOUNTER → 2022-10-03 17:02 | Outpatient (CLI) | payer MEDICARE, SELFPAY | PROVIDERS: PCP Internal Medicine; Visit Provider Internal Medicine | DX: L24.A9 Irritant contact dermatitis due friction or contact with other specified body fluids (principal); M79.642 Pain in left hand; B95.7 Other staphylococcus as the cause of diseases classified elsewhere | CPT/HCPCS: 87070; 87077; 87186; 87205 ==

== ENCOUNTER → 2022-10-29 12:42 | Outpatient (CLI) | payer MEDICARE, SELFPAY ==
--- NOTE | 2022-10-29 13:16 | PC.NURSE ---
PFT completed without incident. Albuterol 0.083% given via HHN, per protocol, Pt tolerated tx well.
== END ==
PROVIDERS: PCP Internal Medicine; Visit Provider Internal Medicine Pulmonary Disease
DX: R06.02 Shortness of breath (principal)
CPT/HCPCS: 94060; 94726; 94729

== ENCOUNTER 2022-11-17 11:48 | Emergency (ER) | payer MEDICARE, SELFPAY ==
[2022-11-17] VITALS (12 sets, daily range): BP systolic 100–154; BP diastolic 70–89; PULSE 72–82; RESP 18–20; TEMP 36.6–36.9; O2SAT 88–96; BMI 36.1
--- NOTE | 2022-11-17 11:50 | PC.NURSE ---
O2 AT 2L/NC
--- NOTE | 2022-11-17 12:01 | XR_ITS ---
FINAL REPORT CLINICAL HISTORY: Shortness of breath COMPARISON: 07/23/2022 FINDINGS: A single portable view of the chest was obtained. The heart size and pulmonary vascularity are within normal limits. The mediastinum is within normal limits. Persistent bibasilar opacities are favored to represent atelectasis. The bony thorax is intact. IMPRESSION: Persistent bibasilar opacities. Reviewed, Interpreted and Dictated by Yaakov Gardner III, MD Transcribed by Luz Randle Authenticated and [facility]
--- NOTE | 2022-11-17 12:02 | ECG_ITS ---
APPROVED REPORT Exam: Resting ECG HR:70 bpm ECG Measurements Heart Rate 70 AXES QRSd 92 QRS -64 QT 450 T 55 QTc 471 Conclusion Sinus rhythm Biatrial abnormality PATTERN CONSISTENT WITH PULMONARY DISEASE ABNORMAL ECG UNCONFIRMED REPORT Electronically signed by : Anthony Dc MD 11/18/2022 20:13:23
--- NOTE | 2022-11-17 12:03 | HMH.EDGENADL ---
Discharge Plan Disposition Patient Disposition: Home, Self-Care Condition: Fair Prescriptions Prescriptions: No Action omega-3 fatty acids 1,000 mg capsule 1,000 mg PO DAILY Centrum Women 18-400 mg-mcg tablet 1 tab PO DAILY zinc acetate 50 mg (zinc) capsule 50 mg PO DAILY Rx Instructions: swallow whole; do not chew/break/dissolve/open polysaccharide iron complex [iFerex 150] 150 mg iron capsule 150 mg PO DAILY Rx Instructions: avoid dairy/calcium-containing products and/or antacids for at least 2 hrs before and after dose prednisone 10 mg tablet 10 mg PO BID ascorbic acid (vitamin C) 1,000 mg tablet 1 g PO DAILY pantoprazole [Protonix] 40 mg tablet,delayed release (DR/EC) 40 mg PO DAILY mirtazapine [Remeron] 15 mg tablet 7.5 mg PO HS albuterol sulfate 90 mcg/actuation HFA aerosol inhaler 1 inh INHALATION .COMPLEX Rx Instructions: 1 inh inhaled bid; cyanocobalamin (vitamin B-12) 1,000 mcg/mL solution 1,000 mcg IM WEEKLY furosemide 20 mg tablet 20 mg PO DAILY cholecalciferol (vitamin D3) 25 mcg (1,000 unit) capsule 25 mcg PO DAILY Caltrate 600 plus D 600 mg-20 mcg (800 unit) tablet,chewable 1 tab PO DAILY Niferex (Sumalate-Quatrefolic) 150 mg iron- 60 mg-1 mg tablet 1 tab PO DAILY amiodarone 200 mg tablet 200 mg PO DAILY fluticasone propionate [Flonase Allergy Relief] 50 mcg/actuation spray,suspension 2 spray intranasal DAILY 90 Days Qty: 16 3RF Rx Instructions: administer into each nostril azelastine 137 mcg (0.1 %) aerosol,spray 2 spray intranasal HS 90 Days Qty: 30 3RF Rx Instructions: administer into each nostril Stiolto Respimat 2.5-2.5 mcg/actuation mist 2 puff INHALATION DAILY 90 Days Qty: 4 3RF ipratropium-albuterol 0.5 mg-3 mg(2.5 mg base)/3 mL solution for nebulization 3 ml INHALATION Q6H PRN (Reason: shortness of breath or wheezing) Qty: 90 6RF albuterol sulfate 90 mcg/actuation HFA aerosol inhaler 2 inh inhalation QID PRN (Reason: shortness of breath or wheezing) 90 Days Qty: 8.5 2RF carbidopa-levodopa 25-100 mg tablet extended release 1 tab PO QID levothyroxine 75 MCG tablet 75 mcg PO DAILY tizanidine 4 mg capsule 4 mg PO HS PRN (Reason: muscle spasticity) Qty: 7 0RF hydrocodone-acetaminophen 5-325 mg tablet 1 tab PO Q8H PRN (Reason: pain) Qty: 7 0RF citalopram 20 MG tablet 20 mg PO DAILY potassium chloride 20 mEq tablet,ER particles/crystals 20 meq PO BID PRN (Reason: potassium replacement) Referrals Follow up/Referrals: Azael Pritchard MD [Primary Care Provider] - See instructions Clinical Impressions Clinical Impression: Acute dyspnea, COPD (chronic obstructive pulmonary disease) Instructions Patient Instructions: DI for Shortness of Breath, DI for Chronic Obstructive Pulmonary Disease Discharge ED Provider: Feliciano Barreto General Adult HPI General Chief complaint: Shortness of Breath/Dyspnea Stated complaint: AMS Time Seen by Provider: 11/17/22 14:20 History of Present Illness HPI narrative: This is an 82-year-old female with a history of CHF COPD KATT respiratory failure who was brought in by the daughter because of increased shortness of breath and decreased level of consciousness. Upon arrival patient is alert awake and oriented x3. Patient is complaining of increasing shortness of breath no fevers or chills no cough hemoptysis no orthopnea there was some pedal edema. Patient denies chest pain pressure or lightheadedness. Related Data Home Medications Medication Instructions Recorded Confirmed citalopram 20 mg tablet 20 mg PO DAILY Depression 04/11/18 10/30/22 multivitamin-ferrous 1 tab PO DAILY Supplement 11/18/19 10/30/22 fumarate-folic acid 18 mg-400 mcg tablet (Centrum Women) omega-3 fatty acids 1,000 mg 1,000 mg PO DAILY Cholesterol 11/18/19 10/30/22 capsule polysacchari
[2022-11-17 12:11] LABS: ABG Base Excess 6.2 mmol/L (-2.4-2.3); ABG HCO3 30.1 mmhg (22.0-26.0); ABG Oxygen Saturation 92 % (90-100); ABG PCO2 43.5 mmhg (35.0-45.0); ABG PH 7.46 mmol/L (7.35-7.45); ABG PO2 62.3 mmhg (80-100); ABG TCO2 31.4 mmhg (23-27); Allen's Test Acceptable; Oxygen 2L NC %; Source Right Brachial
[2022-11-17 12:21] LABS: Basophils % 0.3 % (0.1-2.0); Eosinophils # 0.1 K/mm3 (0.0-0.4); Eosinophils % 1.7 % (0.1-12.0); Hematocrit 42.7 % (37.0-47.0); Hemoglobin 13.7 g/dL (12.2-16.2); Lymphocytes # 1.1 K/mm3 (0.7-4.5); Mean Corpuscular HGB Conc 32.2 g/dL (31.8-35.4); Mean Corpuscular Hemoglobin 31.9 pg (27.0-31.2); Mean Corpuscular Volume 99.1 fl (81-99); Mean Platelet Volume 7.4 fl (7.4-10.4); Monocytes # 0.5 K/mm3 (0.1-1.0); Neutrophils # 6.5 K/mm3 (1.8-7.8); Platelet Count 272 K/mm3 (142-424); Red Blood Count 4.31 M/mm3 (4.20-5.40); Red Cell Distribution Width 14.4 % (11.5-17.5); White Blood Count 8.3 K/mm3 (4.8-10.8)
[2022-11-17 12:31] LABS: Alanine Aminotransferase 29 U/L (12-78); Albumin/Globulin Ratio 1.3 (1.1-1.8); Alkaline Phosphatase 121 U/L (38-126); Anion Gap 14.1 mEq/L (5-15); Aspartate Amino Transferase 40 U/L (14-36); Bilirubin,Total 0.7 mg/dl (0.2-1.3); Blood Urea Nitrogen 25 mg/dl (7-17); Calcium 10.5 mg/dl (8.4-10.2); Carbon Dioxide 33 mmol/L (22.0-30.0); Chloride 95 mmol/L (98-107); Creatinine Clearance Estimated 41 mL/min (50-200); Estimated Glomerular Filt Rate 31 ml/min (>60); GFR (African American) 37 ML/MIN (>60); Globulin 3.1 g/dL (1.3-3.2); Glucose 98 mg/dl (74-100); Potassium 3.1 mmoL/L (3.5-5.1); Sodium 139 mmol/L (136-145); Total Protein,Serum 7.1 g/dl (6.3-8.2)
[2022-11-17 12:40] LABS: NT Pro Brain Natriuretic Pep. 310 pg/mL (0-450)
[2022-11-17 12:43] LABS: Troponin I 0.03 ng/ml (0.00-0.034)
--- NOTE | 2022-11-17 13:26 | PC.NURSE ---
ROUNDED ON PT, NO NEEDS AT THIS TIME
--- NOTE | 2022-11-17 13:46 | CT_ITS ---
FINAL REPORT TECHNIQUE: Axial imaging of the chest was obtained without contrast. Reformatted images were also obtained and reviewed.This study was performed with techniques to keep radiation doses as low as reasonably achievable, (ALARA). Individualized dose reduction technique using automated exposure control or adjustment of mA and/or kV according to the patient's size were employed. CLINICAL HISTORY: sob COMPARISON: 01/11/2020 FINDINGS: There is no axillary adenopathy. There is no hilar or mediastinal mass or adenopathy. Heart size is normal. There is no pericardial or pleural effusion. Limited images of the upper abdomen demonstrate postoperative changes of cholecystectomy. There are areas of scarring in the bilateral lung bases. Postoperative changes are seen of the right posterior costophrenic sulcus. Posterior pleural thickening is seen bilaterally. IMPRESSION: No acute process. Reviewed, Interpreted and Dictated by Yaakov Gardner III, MD Transcribed by Carey Husain Authenticated and [facility]
--- NOTE | 2022-11-17 14:12 | PC.NURSE ---
PATIENT TO CT
[2022-11-17 15:07] LABS: Coronavirus 19, PCR Not Detected (NotDetected); Influenza A, PCR Not Detected (NotDetected); Influenza B, PCR Not Detected (NotDetected)
[2022-11-17 16:07] LABS: Troponin I 0.02 ng/ml (0.00-0.034)
--- NOTE | 2022-11-17 16:15 | PC.NURSE ---
rounded on pt, pt daughter at BS updated on POC- all results are back and ER MD should be in soon
== END 2022-11-17 17:01 | disposition home or self-care (01) ==
PROVIDERS: Emergency Provider Emergency Medicine; PCP Internal Medicine
DX: R41.82 Altered mental status, unspecified (principal); J44.9 Chronic obstructive pulmonary disease, unspecified; I50.30 Unspecified diastolic (congestive) heart failure; R09.02 Hypoxemia
CPT/HCPCS: 36415; 71045; 71250; 80053; 82803; 83605; 83880; 84484; 85025; 87040; 87636; 93005; 99285; C9803; U0003; U0005

== ENCOUNTER 2022-11-30 14:16 | Observation (INO) | payer MEDICARE, SELFPAY ==
[2022-11-30] VITALS (13 sets, daily range): BP systolic 135–189; BP diastolic 70–98; PULSE 76–94; RESP 17–30; TEMP 36.6; O2SAT 91–98; BMI 36.1; BMI 39.4
--- NOTE | 2022-11-30 14:25 | ECG_ITS ---
APPROVED REPORT Exam: Resting ECG HR:90 bpm ECG Measurements Heart Rate 90 AXES QRSd 106 QRS -68 QT 378 T 73 QTc 425 Conclusion NSR with LAD Old anterior changes Marked artifact limits interpretation UNCONFIRMED REPORT Electronically signed by : Anthony Dc MD 12/01/2022 21:32:19
--- NOTE | 2022-11-30 14:41 | XR_ITS ---
PROCEDURE INFORMATION: Exam: XR Chest Exam date and time: 11/30/2022 2:45 PM Age: 82 years old Clinical indication: Shortness of breath; Additional info: SOA, swelling TECHNIQUE: Imaging protocol: Radiologic exam of the chest. Views: 1 view. COMPARISON: CT CHEST WO CON 11/17/2022 2:16 PM FINDINGS: Lungs: Lungs are hypoaerated. Bandlike opacities favored to represent atelectasis. Pleural spaces: Possible small right pleural effusion Heart/Mediastinum: Heart size is at the upper limits of normality within the limits of the technique. Bones/joints: Unremarkable. IMPRESSION: Lungs are hypoaerated. Bandlike opacities favored to represent atelectasis.
--- NOTE | 2022-11-30 14:47 | HMH.EDGENADL ---
Discharge Plan Disposition Patient Disposition: Admitted Condition: Fair Clinical Impressions Clinical Impression: Shortness of breath, Sepsis Discharge ED Provider: Dash Gonzalez General Adult HPI General Chief complaint: Shortness of Breath/Dyspnea Stated complaint: SOA Time Seen by Provider: 11/30/22 14:22 Mode of Arrival: Wheelchair Source of Information: Patient and Relative Limitations: No Limitations Description of Symptoms (Recalled from ER Triage Doc. by RN): 82 yo F presents to ED with c/o shortness of air, bilateral lower leg swelling. pt does have rlq ostomy but no issues with that. pt was seen here recently and the daughter was not happy with the care provided by MD that visit. 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 This started today, 11/30. Patient has been compliant with her medications, per her and daughter. Patient recently diagnosed with UTI, as well as pneumonia and is on cefdinir (followed closely after azithromycin). Patient and daughter state that patient became acutely short of breath this morning and began having lower extremity swelling is worse than usual. Having weeping from lower extremities. Patient denies chest pain, patient has not been febrile, vomiting, diaphoretic. Not on oxygen at home other than CPAP at night. Related Data Home Medications Medication Instructions Recorded Confirmed citalopram 20 mg tablet 20 mg PO DAILY Depression 04/11/18 11/30/22 multivitamin-ferrous 1 tab PO DAILY Supplement 11/18/19 11/30/22 fumarate-folic acid 18 mg-400 mcg tablet (Centrum Women) omega-3 fatty acids 1,000 mg 1,000 mg PO DAILY Cholesterol 11/18/19 11/30/22 capsule polysaccharide iron complex 150 mg 150 mg PO DAILY Iron Supplement 11/18/19 11/30/22 iron capsule (iFerex 150) zinc acetate 50 mg (zinc) capsule 50 mg PO DAILY Supplement 11/18/19 11/30/22 carbidopa ER 25 mg-levodopa 100 mg 1 tab PO QID Tremors 12/19/19 11/30/22 tablet,extended release levothyroxine 75 mcg tablet 75 mcg PO DAILY hypothyroidism 12/19/19 11/30/22 pantoprazole 40 mg tablet,delayed 40 mg PO DAILY Acid reflux 05/20/22 11/30/22 release (Protonix) prednisone 10 mg tablet 10 mg PO BID Arthritis 05/20/22 11/30/22 albuterol sulfate 90 mcg/actuation 1 inh inhalation .COMPLEX 05/27/22 11/30/22 aerosol inhaler shortness of breath or wheezing ascorbic acid (vitamin C) 1,000 mg 1 g PO DAILY Supplement 05/27/22 11/30/22 tablet calcium carbonate 600 mg-vitamin 1 tab PO DAILY Acid reflux 05/27/22 11/30/22 D3 20 mcg (800 unit) chewable tablet (Caltrate 600 plus D) cholecalciferol (vitamin D3) 25 25 mcg PO DAILY Supplement 05/27/22 11/30/22 mcg (1,000 unit) capsule cyanocobalamin (vitamin B-12) 1,000 mcg IM WEEKLY Supplement 05/27/22 11/30/22 1,000 mcg/mL injection solution furosemide 20 mg tablet 40 mg PO DAILY Fluid 05/27/22 11/30/22 iron 150 mg-vit C 60 mg-folate 1 1 tab PO DAILY Supplement 05/27/22 11/30/22 [id number] tablet (Niferex (Sumalate-Quatrefolic)) mirtazapine 15 mg tablet (Remeron) 7.5 mg PO HS RLS 05/27/22 11/30/22 potassium chloride 20 mEq 20 meq PO BID PRN potassium 05/27/22 11/30/22 tablet,extended release(part/cryst) replacement amiodarone 200 mg tablet 200 mg PO DAILY Heart rhythm 10/30/22 11/30/22 azelastine 137 mcg (0.1 %) nasal 2 spray intranasal HS Allergy 11/30/22 11/30/22 spray aerosol symptoms fluticasone propionate 50 2 spray intranasal DAILY Allergy 11/30/22 11/30/22 mcg/actuation nasal symptoms spray,suspension (Flonase Allergy Relief) tiotropium 2.5 mcg-olodaterol 2.5 2 puff inhalation DAILY Breathing 11/30/22 11/30/22 mcg/actuation mist for inhalation problems (Stiolto Respimat) Previous Rx's Medication
[2022-11-30 15:03] LABS: Basophils % 0.2 % (0.1-2.0); Eosinophils % 0.1 % (0.1-12.0); Hematocrit 42.2 % (37.0-47.0); Hemoglobin 13.3 g/dL (12.2-16.2); Lymphocytes # 0.4 K/mm3 (0.7-4.5); Lymphocytes % 3.4 % (10-50); Mean Corpuscular HGB Conc 31.4 g/dL (31.8-35.4); Mean Corpuscular Hemoglobin 31.7 pg (27.0-31.2); Mean Corpuscular Volume 100.9 fl (81-99); Mean Platelet Volume 7.8 fl (7.4-10.4); Monocytes # 0.6 K/mm3 (0.1-1.0); Monocytes % 4.5 % (1.7-9.3); Neutrophils # 11.7 K/mm3 (1.8-7.8); Neutrophils % 91.8 % (37.0-80.0); Platelet Count 237 K/mm3 (142-424); Red Blood Count 4.18 M/mm3 (4.20-5.40); Red Cell Distribution Width 14.9 % (11.5-17.5); White Blood Count 12.8 K/mm3 (4.8-10.8)
[2022-11-30 15:11] LABS: MANUAL DIFFERENTIAL MANUAL DIFFERENTIAL (MANUAL DIFF)
[2022-11-30 15:13] LABS: Alanine Aminotransferase 34 U/L (12-78); Albumin Level 3.6 g/dl (3.5-5.0); Albumin/Globulin Ratio 1.3 (1.1-1.8); Alkaline Phosphatase 132 U/L (38-126); Anion Gap 12.1 mEq/L (5-15); Aspartate Amino Transferase 38 U/L (14-36); Bilirubin,Total 0.5 mg/dl (0.2-1.3); Blood Urea Nitrogen 28 mg/dl (7-17); Calcium 9.1 mg/dl (8.4-10.2); Carbon Dioxide 24 mmol/L (22.0-30.0); Chloride 108 mmol/L (98-107); Creatinine Clearance Estimated 66 mL/min (50-200); Estimated Glomerular Filt Rate 53 ml/min (>60); GFR (African American) 64 ML/MIN (>60); Globulin 2.7 g/dL (1.3-3.2); Glucose 136 mg/dl (74-100); Potassium 4.1 mmoL/L (3.5-5.1); Sodium 140 mmol/L (136-145); Total Protein,Serum 6.3 g/dl (6.3-8.2)
[2022-11-30 15:15] LABS: Lactic Acid 2.6 mmol/L (0.7-2.1)
[2022-11-30 15:22] LABS: NT Pro Brain Natriuretic Pep. 206 pg/mL (0-450)
[2022-11-30 15:26] LABS: Troponin I 0.02 ng/ml (0.00-0.034)
[2022-11-30 15:31] LABS: Procalcitonin 0.074 ng/mL (0.0-2.0); T4 (Thyroxine) 6.6 ug/dl (5.53-11.0)
--- NOTE | 2022-11-30 15:36 | PC.NURSE ---
pt is in bed resting daughter at BS. labs and urine sent
[2022-11-30 15:43] LABS: Coronavirus 19, PCR Not Detected (NotDetected); Influenza A, PCR Not Detected (NotDetected); Influenza B, PCR Not Detected (NotDetected); Microscopic, Urine URINE MICROSCOPIC (MICROSCOPIC)
[2022-11-30 15:45] LABS: Thyroid Stimulating Hormone 1.32 uIU/mL (0.465-4.68)
[2022-11-30 15:48] LABS: Lymphocytes % 6 % (10-50); Monocytes % 2 % (2-9); Neutrophils % 92 % (42-76); Platelet Estimate Normal; RBC Morphology Normal; Total Cells Counted 100
--- NOTE | 2022-11-30 15:48 | PC.NURSE ---
rounded on pt nothing needed at this time
[2022-11-30 15:54] LABS: Appearance,Urine CLEAR (Clear); Bilirubin,Urine Negative (Negative); Blood, Urine Negative (Negative); Color,Urine YELLOW (Yellow); Glucose,Urine (UA) Negative (Negative); Ketones,Urine Negative (Negative); Leukocyte Esterase,Urine Negative (Negative); Nitrate,Urine Negative (Negative); PH,Urine 5.5 (5.0-8.5); Protein,Urine Negative (Negative); Urobilinogen,Urine 0.2 EU/dl (0.2)
[2022-11-30 15:58] LABS: Squamous Epithelial Cell,Urine Occasional #/hpf (0-5); WBC,Urine Occasional #/hpf (0-3)
--- NOTE | 2022-11-30 17:49 | PC.NURSE ---
Report to GILBERT Umanzor-- waiting for transport to 2nd floor
--- NOTE | 2022-11-30 17:59 | EXP.HP ---
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 This started today, 11/30.? Patient has been compliant with her medications, per her and daughter.? Patient recently diagnosed with UTI, as well as pneumonia and is on cefdinir (followed closely after azithromycin).? Patient and daughter state that patient became acutely short of breath this morning and began having lower extremity swelling is worse than usual.? Having weeping from lower extremities.? Patient denies chest pain, patient has not been febrile, vomiting, diaphoretic.? Not on oxygen at home other than CPAP at night. In emergency department patient was found with lactic acid of 2.6, white blood cells 12.8, UA with no evidence of infection chest x-ray is clear too. Elevated BNP. [facility] Disclaimer: The information contained in this section may have been updated after the patient was seen, as this information can be updated by other users. Medical History (Updated 11/30/22 @ 16:37 by Dash Gonzalez MD) Allergic rhinitis Asthma Chronic cough COPD (chronic obstructive pulmonary disease) COPD (chronic obstructive pulmonary disease) Diastolic heart failure Dyspnea on exertion Dyspnea on exertion History of gastroesophageal reflux (GERD) Surgical History History of cholecystectomy History of colectomy History of hysterectomy Family History Other No significant family history Social History Smoking Status: Never smoker second hand exposure: Yes alcohol intake: never substance use type: denies use current occupational status: employed Travel in the last 8 weeks: None household members: none housing: house 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[employer] current occupational exposures/hazards: No caffeine: Yes Review of Systems Constitutional Constitutional: Reports system reviewed and no additional complaints, except as documented Eyes Eyes: Reports system reviewed and no additional complaints, except as documented ENT Ears, Nose, Mouth, and Throat: Reports system reviewed and no additional complaints, except as documented *Cardiovascular Cardiovascular: Reports system reviewed and no additional complaints, except as documented *Respiratory Respiratory: Reports system reviewed and no additional complaints, except as documented *Gastrointestinal Gastrointestinal: Reports system reviewed and no additional complaints, except as documented *Genitourinary Genitourinary: Reports system reviewed and no additional complaints, except as documented *Musculoskeletal Musculoskeletal: Reports system reviewed and no additional complaints, except as documented Integumentary/Breasts Skin/Breast: Reports system reviewed and no additional complaints, except as documented *Neurologic Neurologic: Reports system reviewed and no additional complaints, except as documented Psychiatric Psychiatric: Reports system reviewed and no additional complaints, except as documented Endocrine Endocrine: Reports system reviewed and no additional complaints, except as documented Hematologic/Lymphatic Hematologic/Lymphatic: Reports system reviewed and no additional complaints, except as documented Meds Home Medications and Allergies Home Medications Medication Instructions Recorded Confirmed Type citalopram 20 mg tablet 20 mg PO DAILY Depression 04/11/18 11/30/22 History multivitamin-ferrous 1 tab PO DAILY Supplement 11/18/19 11/30/22 History fumarate-folic acid 18 mg-400 mcg tablet ([facility]) omega-3 fatty acids 1,000 mg 1,000 mg PO DAILY Cholesterol 11/18/19 06
[2022-11-30 18:15] LABS: Troponin I 0.02 ng/ml (0.00-0.034)
--- NOTE | 2022-11-30 18:15 | PC.NURSE ---
arrived from ED by w/c
[2022-11-30 19:00] LABS: Reflex Lactic Add Lactic Reflex
--- NOTE | 2022-11-30 20:35 | PC.NURSE ---
MULTIPLE UNSUCCESSFUL STICK PER LAB. REPEAT LACTIC AND TROP MEHDI FROM IV SITE.
[2022-11-30 21:13] LABS: Lactic Acid Follow Up (RFLX 1) 3.1 mmol/L (0.7-2.1)
[2022-11-30 21:24] LABS: Troponin I 0.02 ng/ml (0.00-0.034)
[2022-11-30 23:01] LABS: Reflex Lactic (2 hrs) Add Lactic Reflex
[2022-12-01] VITALS (10 sets, daily range): BP systolic 142–168; BP diastolic 60–100; PULSE 76–90; RESP 18–24; TEMP 36.5–37.1; O2SAT 92–97; BMI 40.3; BMI 40.0
[2022-12-01 00:33] LABS: Lactic Acid Follow up (RFLX 2) 1.9 mmol/L (0.7-2.1)
[2022-12-01 06:49] LABS: Basophils % 0.2 % (0.1-2.0); Eosinophils % 0.2 % (0.1-12.0); Hematocrit 40.1 % (37.0-47.0); Hemoglobin 12.7 g/dL (12.2-16.2); Lymphocytes # 0.6 K/mm3 (0.7-4.5); Mean Corpuscular HGB Conc 31.8 g/dL (31.8-35.4); Mean Corpuscular Volume 100.7 fl (81-99); Mean Platelet Volume 8.8 fl (7.4-10.4); Monocytes # 0.6 K/mm3 (0.1-1.0); Monocytes % 5.7 % (1.7-9.3); Neutrophils # 10.1 K/mm3 (1.8-7.8); Neutrophils % 88.9 % (37.0-80.0); Platelet Count 223 K/mm3 (142-424); Red Blood Count 3.98 M/mm3 (4.20-5.40); Red Cell Distribution Width 14.9 % (11.5-17.5); White Blood Count 11.4 K/mm3 (4.8-10.8)
[2022-12-01 07:19] LABS: MANUAL DIFFERENTIAL MANUAL DIFFERENTIAL (MANUAL DIFF)
[2022-12-01 07:22] LABS: Chloride 105 mmol/L (98-107); Potassium 3.9 mmoL/L (3.5-5.1); Sodium 141 mmol/L (136-145)
[2022-12-01 07:24] LABS: Blood Urea Nitrogen 29 mg/dl (7-17); Creatinine Clearance Estimated 33 mL/min (50-200); Estimated Glomerular Filt Rate 47 ml/min (>60); GFR (African American) 57 ML/MIN (>60)
[2022-12-01 07:25] LABS: Alanine Aminotransferase 62 U/L (12-78); Albumin Level 3.5 g/dl (3.5-5.0); Albumin/Globulin Ratio 1.3 (1.1-1.8); Alkaline Phosphatase 94 U/L (38-126); Anion Gap 10.9 mEq/L (5-15); Aspartate Amino Transferase 38 U/L (14-36); Bilirubin,Total 0.4 mg/dl (0.2-1.3); Calcium 9.4 mg/dl (8.4-10.2); Carbon Dioxide 29 mmol/L (22.0-30.0); Globulin 2.6 g/dL (1.3-3.2); Glucose 93 mg/dl (74-100); Total Protein,Serum 6.1 g/dl (6.3-8.2)
--- NOTE | 2022-12-01 07:52 | HMH.PHAINT1 ---
Pharmacy Intervention Comments: PATIENT HOME MEDICATION REVIEWED WITH EXTERNAL PHARMACY AND PATIENTS DAUGHTER. NO QUESTIONS AT THIS TIME. -MARISA PAVON PHARM STUDENT
[2022-12-01 08:23] LABS: Anisocytosis 1+; Hypochromasia 1+; Lymphocytes % 6 % (10-50); Macrocytosis 1+; Monocytes % 4 % (2-9); Neutrophils % 90 % (42-76); Platelet Estimate Normal; Total Cells Counted 100
--- NOTE | 2022-12-01 08:40 | PC.NURSE ---
pt and family expressed concern regarding morning dose of amiodarone and asked if medication could be held until dr young this morning.
--- NOTE | 2022-12-01 11:21 | EXP.ACUTE.PN ---
Subjective *Date: 12/01/22 *Time: 11:21 Interval history: Discussed with daughter at bedside with multiple issues Patient's daughter who is a nurse told the staff to stop amiodarone as it caused her creatinine to go up Patient is feeling better. On 2 l oxygen. Requesting physical therapy evaluation. Medical Exam Vital signs and Labs for Last 24 Hours: Vital Signs Temp Pulse Pulse Resp BP BP Pulse Ox 12/01/22 08:00 90 12/01/22 08:00 97 12/01/22 07:16 98.7 F 80 20 154/82 H 94 L 12/01/22 04:00 80 12/01/22 04:00 97.7 F 76 24 168/98 H 93 L 12/01/22 00:00 80 11/30/22 23:00 80 12/01/22 00:00 98.0 F 81 22 142/100 H 92 L 11/30/22 20:00 97 11/30/22 19:31 97.9 F 79 22 158/84 H 97 11/30/22 18:20 97.9 F 77 22 174/85 H 91 L 11/30/22 17:31 76 170/94 H 96 11/30/22 17:49 98 F 76 17 170/94 H 11/30/22 17:00 79 173/91 H 96 11/30/22 16:30 79 164/94 H 96 11/30/22 16:00 83 154/89 H 95 11/30/22 15:31 85 144/88 H 98 11/30/22 15:00 84 153/89 H 95 11/30/22 14:39 86 22 135/70 95 11/30/22 14:17 97.9 F 94 H 30 H 189/98 H 95 Intake and Output 11/30/22 12/01/22 12/01/22 23:59 07:59 15:59 Intake Total 1799 805 / 805 Output Total 100 / 900 800 / 900 Balance 1799 705 / -95 -800 / -95 Intake: Intake, Oral Amount 720 / 720 Intake, Total IV Amount 1800 1884 85 / 85 Cefepime HCl 2 gm In 0.9 % 85 / 85 Sodium Chloride 100 ml @ 200 mls/hr IV Q8H [facility] Rx#:[id number] Output: Output, Urine Amount 100 / 900 800 / 900 Other: Number of Unmeasured Voids 1 1 Number of Bowel Movements 1 Weight 107.615 kg 109.679 kg Patient Weight 12/01/22 23:59 Weight 109.679 kg Laboratory Results - last 24 hr 11/30/22 14:50: WBC 12.8 H, RBC 4.18 L, Hgb 13.3, Hct 42.2, MCV 100.9 H, MCH 31.7 H, MCHC 31.4 L, RDW 14.9, Plt Count 237, MPV 7.8, Neut % (Auto) 91.8 H, Lymph % (Auto) 3.4 L, [place] % (Auto) 4.5, Eos % (Auto) 0.1, Baso % (Auto) 0.2, Neut # (Auto) 11.7 H, Lymph # (Auto) 0.4 L, [place] # (Auto) 0.6, Eos # (Auto) 0.0, Baso # (Auto) 0.0, Total Counted 100, Neutrophils % (Manual) 92 H, Lymphocytes % (Manual) 6 L, Monocytes % (Manual) 2, Platelet Estimate Normal, RBC Morphology Normal 11/30/22 14:50: Sodium 140, Potassium 4.1, Chloride 108 H, Carbon Dioxide 24, Anion Gap 12.1, BUN 28 H, Creatinine 1.00, Estimated Creat Clear 66, Estimated GFR 53 L, Est GFR ( Amer) 64, Glucose 136 H, Calcium 9.1, Total Bilirubin 0.5, AST 38 H, ALT 34, Alkaline Phosphatase 132 H, Troponin I 0.02, Total Protein 6.3, Albumin 3.6, Globulin 2.7, Albumin/Globulin Ratio 1.3, Procalcitonin 0.074, TSH 1.32, Thyroxine (T4) 6.6 11/30/22 14:50: Lactate 2.6 H 11/30/22 14:50: NT-Pro-B Natriuret Pep 206 11/30/22 15:30: SARS-CoV-2 (PCR) Not detected, Influenza A Untype (PCR) Not detected, Influenza Type B (PCR) Not detected 11/30/22 15:30: Urine Color Yellow, Urine Appearance Clear, Urine pH 5.5, Ur Specific [place] 1.020, Urine Protein Negative, Urine Glucose (UA) Negative, Urine Ketones Negative, Urine Blood Negative, Urine Nitrate Negative, Urine Bilirubin Negative, Urine Urobilinogen 0.2, Ur Leukocyte Esterase Negative, Urine RBC None, Urine WBC Occasional, Ur Squamous Epith Cells Occasional, Urine Bacteria None 11/30/22 17:35: Troponin I 0.02 11/30/22 20:35: Troponin I 0.02 11/30/22 20:35: Lactate 3.1 H 12/01/22 00:18: Lactate 1.9 12/01/22 06:40: WBC 11.4 H, RBC 3.98 L, Hgb 12.7, Hct 40.1, MCV 100.7 H, MCH 32.0 H, MCHC 31.8, RDW 14.9, Plt Count 223, MPV 8.8, Neut % (Auto) 88.9 H, Lymph % (Auto) 5.0 L, [place] % (Auto) 5.7, Eos % (Auto) 0.2, Baso % (Auto) 0.2, Neut # (Auto) 10.1 H, Lymph # (Auto) 0.6 L, [place] # (Auto) 0.6, Eos # (Auto) 0.0, Baso # (Auto) 0.0, Total Counted 100, Neutrophils % (Manual) 90 H, Lymphocytes % (Manual) 6 L, Monocytes % (Manual) 4, Platelet Estimate Normal, Hypochromasia 1+, An
--- NOTE | 2022-12-01 14:07 | HMH.PTEV ---
Physical Therapy Evaluation Rehab PT IP Evaluation Start: 12/01/22 11:29 Freq: ONCE Status: Active Protocol: Document 12/01/22 13:53 JASSI (Rec: 12/01/22 14:07 [email or web address] [id number]) Subjective/History History History 82 yowf adm to [facility] with sudden onset of SOA. She had recen UTI and PNA and hx of CAD, CHF , COPD on nightly CPAP, ischemic colitis and perforated diverticulitis status post bowel resection and colostomy. She uses CPAP at night, but no oxygen during the day at baseline. She reports she lives with her daughter who provides for all of her ADLs and she is generally able to ambulate short distances independently with a RW. Subjective Subjective Pt reports she feels a little sleepy this pm, but overall much better. Rehab PT IP Eval Objective Appearance Patient Behavior Appropriate Patient Orientation Person,Place,Time Difficulty following instructions none Speech Pattern Clear Ambulation Patient Able to Ambulate Yes Ambulation Observation IP General Gait Pattern Observation Shuffling Step Ambulation Distance (feet) 4 Ambulation Assistive Device Rolling Walker Ambulation Ability Contact Guard/Hand Hold Balance Ability to Arise Able, uses arms to help Sitting Balance Steady, safe Standing Balance Steady, wide stance Dynamic Sitting Balance Ability Good Dynamic Standing Balance Ability Fair Transfers Bed Transfer Ability Supervision/Stand by Chair Transfer Ability Contact Guard/Hand Hold Sit to Stand Bed Transfer Ability Contact Guard/Hand Hold Sit to Stand Chair Transfer Ability Contact Guard/Hand Hold ROM All Extremities PT ROM Status WFL MMT All Extremities PT MMT WFL Rehab PT IP prob,goals,plan Problems Date of Evaluation: 12/01/22 PT IP Problems Bed Mobility,Transfers,Gait Rehab Potential Rehab Potential Good Plan PT Intervention Plan Bed Mobility,Transfers,Gait, Therapeutic Exercise PT Plan Frequency Daily Duration LOS Discharge Goals Bed Transfer Ability Independent Sit to Stand Chair Transfer Ability Supervision/Stand by
--- NOTE | 2022-12-01 18:56 | PC.WOUNDNOTE ---
LEFT ELBOW WOUND PRESENT ON ADMISSION
[2022-12-02] VITALS (11 sets, daily range): BP systolic 135–163; BP diastolic 84–94; PULSE 70–90; RESP 16–22; TEMP 36.7–37.1; O2SAT 86–97; BMI 40.7; BMI 38.9
[2022-12-02 06:36] LABS: Basophils % 0.3 % (0.1-2.0); Eosinophils # 0.1 K/mm3 (0.0-0.4); Eosinophils % 0.5 % (0.1-12.0); Hematocrit 38.9 % (37.0-47.0); Hemoglobin 12.2 g/dL (12.2-16.2); Lymphocytes # 0.4 K/mm3 (0.7-4.5); Lymphocytes % 4.3 % (10-50); Mean Corpuscular HGB Conc 31.5 g/dL (31.8-35.4); Mean Corpuscular Hemoglobin 31.4 pg (27.0-31.2); Mean Corpuscular Volume 99.9 fl (81-99); Mean Platelet Volume 8.2 fl (7.4-10.4); Monocytes # 0.5 K/mm3 (0.1-1.0); Monocytes % 4.8 % (1.7-9.3); Neutrophils # 8.5 K/mm3 (1.8-7.8); Neutrophils % 90.1 % (37.0-80.0); Platelet Count 205 K/mm3 (142-424); Red Cell Distribution Width 14.9 % (11.5-17.5); White Blood Count 9.4 K/mm3 (4.8-10.8)
[2022-12-02 06:42] LABS: MANUAL DIFFERENTIAL MANUAL DIFFERENTIAL (MANUAL DIFF)
[2022-12-02 06:43] LABS: Chloride 104 mmol/L (98-107); Potassium 4.1 mmoL/L (3.5-5.1); Sodium 138 mmol/L (136-145)
[2022-12-02 06:45] LABS: Alanine Aminotransferase 26 U/L (12-78); Aspartate Amino Transferase 33 U/L (14-36); Blood Urea Nitrogen 33 mg/dl (7-17); Creatinine Clearance Estimated 33 mL/min (50-200); Estimated Glomerular Filt Rate 47 ml/min (>60); GFR (African American) 57 ML/MIN (>60)
[2022-12-02 06:46] LABS: Albumin Level 3.3 g/dl (3.5-5.0); Albumin/Globulin Ratio 1.2 (1.1-1.8); Alkaline Phosphatase 79 U/L (38-126); Anion Gap 9.1 mEq/L (5-15); Bilirubin,Total 0.5 mg/dl (0.2-1.3); Calcium 9.6 mg/dl (8.4-10.2); Carbon Dioxide 29 mmol/L (22.0-30.0); Globulin 2.7 g/dL (1.3-3.2); Glucose 90 mg/dl (74-100)
[2022-12-02 06:59] LABS: Eosinophils % 1 % (0-3); Lymphocytes % 10 % (10-50); Monocytes % 5 % (2-9); Neutrophils % 84 % (42-76); Platelet Estimate Normal; RBC Morphology Normal; Total Cells Counted 100
--- NOTE | 2022-12-02 07:56 | SW/DCPLANNER ---
Addendum entered by Rosalind Brar 12/03/22 15:01: Jamel kapoor/ [facility] stated that home health services will begin this week. Addendum entered by Rosalind Brar 12/03/22 12:27: Patient information/order has been faxed to [facility] . The plan for this patient is to discharge home today. Addendum entered by Rosalind Brar 12/02/22 08:08: Updated: patient's daughter has called back stating that patient used [facility] in the past and would prefer to use this agency at discharge. Original Note: I spoke with this patient regarding plans once medically stable for discharge. Patient stated that she lives at home and her daughter lives with her. PT/OT evaluated patient yesterday and recommended home w/ home health services. Patient is agreeable to home health services and stated she used [facility] in the past and would prefer to use them again at discharge. I will set up [facility] once patient is ready for discharge. Patient also stated that she has nighttime home O2 in the home. Discharge date is unknown at this time.
--- NOTE | 2022-12-02 09:53 | CT_ITS ---
FINAL REPORT TECHNIQUE: Postcontrast axial images through the abdomen and pelvis were performed. This study was performed with techniques to keep radiation doses as low as reasonably achievable, (ALARA). Individualized dose reduction techniques using automated exposure control or adjustment of mA and/or kV according to the patient's size were employed. CLINICAL HISTORY: eval rectal stump FINDINGS: Abdomen: Small basilar atelectasis. There are pulmonary emboli involving the distal right main, right upper lobe and proximal right lower lobe pulmonary artery branches. Clot burden is small. There is no evidence of right heart strain. The liver is normal in size and attenuation. There is evidence of cholecystectomy. There is a small probable cyst in the spleen. The adrenals are normal. The pancreas is unremarkable. Small renal cysts are noted. The aorta is normal in caliber. No free fluid or adenopathy is identified. There is a right abdomen colostomy. Pelvis: A Burris's pouch is present. The urinary bladder is unremarkable. No free fluid, free air, abscess or adenopathy is identified. There is a subacute to chronic fracture of the left sacral ala IMPRESSION: Pulmonary emboli involving the right lung as described. No evidence of right heart strain. Dr. Greene was notified of these findings at 2:18 PM December 02, 2022. Right abdomen colostomy with Burris's pouch in place. Subacute to chronic left sacral ala fracture. Reviewed, Interpreted and Dictated by Yaakov Gardner III, MD Transcribed by Judd Gandhi Authenticated and [facility]
[2022-12-02 10:34] LABS: Procalcitonin 0.097 ng/mL (0.0-2.0)
--- NOTE | 2022-12-02 12:44 | PC.NURSE ---
pt. is 90% on RA.
--- NOTE | 2022-12-02 17:25 | PC.NURSE ---
Pt. is 86% on RA while ambulating.
--- NOTE | 2022-12-02 18:40 | EXP.ACUTE.PN ---
Subjective *Date: 12/02/22 *Time: 21:48 Interval history: Patient has remained and intermittently dyspneic. Mild shortness of breath today. Initial room air sat of 90%. Repeat room air sat in the afternoon of 86%. Qualifying for home oxygen. Additionally, labs have normalized. Patient having increased right lower abdominal pain. Obtain CT with contrast of abdomen and pelvis. Continuing on empiric antibiotics. No clear source of infection at this time. Noticed to have thrush in her mouth. Medical Exam Vital signs and Labs for Last 24 Hours: Vital Signs Temp Pulse Pulse Resp BP Pulse Ox 12/02/22 16:00 70 12/02/22 17:18 86 L 12/02/22 14:56 98.1 F 80 16 135/85 95 12/02/22 12:00 90 12/02/22 10:48 98.1 F 80 16 157/92 H 90 L 12/02/22 08:00 80 12/02/22 08:00 97 12/02/22 07:15 98.8 F 78 16 163/94 H 95 12/02/22 06:20 94 L 12/02/22 04:00 98.4 F 77 20 148/84 H 94 L 12/01/22 23:49 98 F 83 20 146/91 H 93 L 12/01/22 20:00 98.2 F 87 22 144/60 H 93 L Intake and Output 12/02/22 12/02/22 12/02/22 07:59 15:59 23:59 Intake Total 300 / 640 100 / 640 240 / 640 Output Total 400 / 600 200 / 600 0 / 600 Balance -100 / 40 -100 / 40 240 / 40 Intake: Intake, Oral Amount 300 / 540 0 / 540 240 / 540 Intake, Total IV Amount 100 / 100 Cefepime HCl 2 gm In 0.9 % 100 / 100 Sodium Chloride 100 ml @ 200 mls/hr IV Q8H [facility] Rx#:[id number] Output: Output, Urine Amount 400 / 600 200 / 600 0 / 600 Other: Number of Unmeasured Voids 0 1 1 Weight 110.994 kg 106.197 kg Patient Weight 12/02/22 23:59 Weight 106.197 kg Laboratory Results - last 24 hr 12/02/22 06:15: WBC 9.4, RBC 3.90 L, Hgb 12.2, Hct 38.9, MCV 99.9 H, MCH 31.4 H, MCHC 31.5 L, RDW 14.9, Plt Count 205, MPV 8.2, Neut % (Auto) 90.1 H, Lymph % (Auto) 4.3 L, [place] % (Auto) 4.8, Eos % (Auto) 0.5, Baso % (Auto) 0.3, Neut # (Auto) 8.5 H, Lymph # (Auto) 0.4 L, [place] # (Auto) 0.5, Eos # (Auto) 0.1, Baso # (Auto) 0.0, Total Counted 100, Neutrophils % (Manual) 84 H, Lymphocytes % (Manual) 10, Monocytes % (Manual) 5, Eosinophils % (Manual) 1, Platelet Estimate Normal, RBC Morphology Normal 12/02/22 06:15: Sodium 138, Potassium 4.1, Chloride 104, Carbon Dioxide 29, Anion Gap 9.1, BUN 33 H, Creatinine 1.10 H, Estimated Creat Clear 33, Estimated GFR 47 L, Est GFR ( Amer) 57 L, Glucose 90, Calcium 9.6, Total Bilirubin 0.5, AST 33, ALT 26 D, Alkaline Phosphatase 79, Total Protein 6.0 L, Albumin 3.3 L, Globulin 2.7, Albumin/Globulin Ratio 1.2 12/02/22 : Procalcitonin 0.097 I & O for Labs for Last 24 Hours: Intake & Output 11/29/22 11/30/22 12/01/22 12/02/22 23:59 23:59 23:59 23:59 Intake Total 1800 / 1885 1145 / 1145 640 / 640 Output Total 2300 / 2300 600 / 600 Balance 1800 / 1885 -1155 / -1155 40 / 40 Weight 107.615 kg 109 kg 106.197 kg Microbiology Reports for the Last 24 Hours: Microbiology 11/30/22 15:00 Blood Blood Culture - Preliminary NO GROWTH AFTER 48 HOURS 11/30/22 14:56 Blood Blood Culture - Preliminary NO GROWTH AFTER 48 HOURS 11/30/22 15:30 Urine,Catheterized Urine Culture - Preliminary Constitutional: Present no acute distress, obese and chronically ill appearing Comment:: Cushingoid facies Head: Present atraumatic and normocephalic Comment:: Thrush on hard palate Neck: Present normal inspection and full ROM Respiratory: Present normal respiratory effort and symmetric chest movement; Absent rhonchi Cardiac: Present Reg Rate and Rhythm GI: Present soft and tenderness (Right lower quadrant) Comments:: Colostomy in place Extremities: Present edema Comment:: 2+ to knees Skin: Present intact and dry Comment:: Thin, senile purpura Neuro: Present alert, awake and moves all extremities Comment:: Tremor Assessment and Plan *Assessment and plan (1) Pulmonary emboli:
[2022-12-03] VITALS: BP 162/96; PULSE 80; PULSE 81; RESP 22; TEMP 37.7; O2SAT 94
[2022-12-03 04:00] VITALS: BP 142/68; PULSE 70; PULSE 76; RESP 22; TEMP 36.5; O2SAT 96; BMI 39.3
[2022-12-03 06:09] VITALS: O2SAT 94
[2022-12-03 06:34] LABS: Basophils % 0.1 % (0.1-2.0); Eosinophils # 0.1 K/mm3 (0.0-0.4); Eosinophils % 0.5 % (0.1-12.0); Hematocrit 37.9 % (37.0-47.0); Lymphocytes # 0.4 K/mm3 (0.7-4.5); Lymphocytes % 3.5 % (10-50); Mean Corpuscular HGB Conc 31.7 g/dL (31.8-35.4); Mean Corpuscular Hemoglobin 31.3 pg (27.0-31.2); Mean Corpuscular Volume 98.8 fl (81-99); Monocytes # 0.5 K/mm3 (0.1-1.0); Monocytes % 4.7 % (1.7-9.3); Neutrophils # 9.6 K/mm3 (1.8-7.8); Neutrophils % 91.2 % (37.0-80.0); Platelet Count 201 K/mm3 (142-424); Red Blood Count 3.84 M/mm3 (4.20-5.40); White Blood Count 10.5 K/mm3 (4.8-10.8)
[2022-12-03 06:38] LABS: MANUAL DIFFERENTIAL MANUAL DIFFERENTIAL (MANUAL DIFF)
[2022-12-03 06:41] LABS: Chloride 105 mmol/L (98-107); Potassium 4.2 mmoL/L (3.5-5.1); Sodium 139 mmol/L (136-145)
[2022-12-03 06:44] LABS: Alanine Aminotransferase 26 U/L (12-78); Albumin Level 3.2 g/dl (3.5-5.0); Albumin/Globulin Ratio 1.2 (1.1-1.8); Alkaline Phosphatase 82 U/L (38-126); Anion Gap 8.2 mEq/L (5-15); Aspartate Amino Transferase 34 U/L (14-36); Bilirubin,Total 0.3 mg/dl (0.2-1.3); Blood Urea Nitrogen 36 mg/dl (7-17); Calcium 9.9 mg/dl (8.4-10.2); Carbon Dioxide 30 mmol/L (22.0-30.0); Creatinine Clearance Estimated 66 mL/min (50-200); Estimated Glomerular Filt Rate 47 ml/min (>60); GFR (African American) 57 ML/MIN (>60); Globulin 2.6 g/dL (1.3-3.2); Glucose 103 mg/dl (74-100); Total Protein,Serum 5.8 g/dl (6.3-8.2)
[2022-12-03 06:45] LABS: Magnesium 2.4 mg/dl (1.6-2.3)
[2022-12-03 07:45] LABS: Lymphocytes % 5 % (10-50); Monocytes % 3 % (2-9); Neutrophils % 92 % (42-76); Platelet Estimate Normal; RBC Morphology Normal; Total Cells Counted 100
[2022-12-03 08:00] VITALS: BP 135/92; PULSE 79; PULSE 86; RESP 18; TEMP 36.9; O2SAT 95
--- NOTE | 2022-12-03 08:28 | EXP.DC.SUM ---
General Admission date:: 11/30/22 Discharge date: 12/03/22 HPI HPI HPI: This is an 82-year-old female with history of CAD, CHF, COPD on nightly CPAP, ischemic colitis and perforated diverticulitis status post bowel resection and colostomy placement presenting with shortness of breath and swelling.? This started today, 11/30.? Patient has been compliant with her medications, per her and daughter.? Patient recently diagnosed with UTI, as well as pneumonia and is on cefdinir (followed closely after azithromycin).? Patient and daughter state that patient became acutely short of breath this morning and began having lower extremity swelling is worse than usual.? Having weeping from lower extremities.? Patient denies chest pain, patient has not been febrile, vomiting, diaphoretic.? Not on oxygen at home other than CPAP at night. In emergency department patient was found with lactic acid of 2.6, white blood cells 12.8, UA with no evidence of infection chest x-ray is clear too. Elevated BNP. Hospital Course Hospital Course Hospital Course: 82-year-old female with Parkinson's who presented with increased shortness of breath. Initially concerning for sepsis. Started on empiric antibiotics. White cell count is normalized. No focal source of pneumonia. CT obtained of abdomen and pelvis the day before discharge to evaluate for pain in her right lower quadrant, incidental finding of pulmonary emboli noted on CT. Started on anticoagulation. Patient stable on 2 L nasal cannula oxygen. Discharged home with home health and O2. Stable for discharge in care of daughter. Problems addressed as follows: Pulmonary emboli Dyspnea Acute on chronic hypoxemic respiratory failure - Increased oxygen requirement. Room air saturation on day of discharge of 86%. Continue to require 1 to 2 L of oxygen during hospitalization, 2 L with BiPAP at night. Initially unclear etiology for shortness of breath. Attempts to diurese did not improve her shortness of breath. Empiric antibiotics given leukocytosis on presentation however no clear signs of pneumonia on chest imaging. CT of abdomen pelvis identified multiple PEs as follows: incidental finding of pulmonary emboli in the distal right main bronchus, right upper lobe and proximal right lower lobe. Patient was initiated on Lovenox for DVT prophylaxis, increased to therapeutic dosing with 1 mg/kg twice daily. Transitioned to Eliquis for oral therapy for treatment of PEs. Plan to resume home diuretics at discharge. Continue breathing treatments as needed. Completed empiric 5-day course of antibiotics due to leukocytosis on presentation but no clear sign of infection by discharge. Stable for discharge home with home health in the care of her daughter. CKD -Baseline creatinine 1.1. Currently at baseline. Stable to her admission Parkinson's disease -Continued home regimen, complicates her prognosis. Atrial fibrillation -Continue amiodarone Exam Data for Last 24 hours Vital signs and Labs for Last 24 Hours: Temp Pulse Resp BP Pulse Ox FiO2 98.5 F 79 18 135/92 H 95 28 12/03/22 08:00 12/03/22 08:00 12/03/22 08:00 12/03/22 08:00 12/03/22 08:00 12/02/22 23:38 Laboratory Results - last 24 hr 12/02/22 : Procalcitonin 0.097 12/03/22 06:19: WBC 10.5, RBC 3.84 L, Hgb 12.0 L, Hct 37.9, MCV 98.8, MCH 31.3 H, MCHC 31.7 L, RDW 15.0, Plt Count 201, MPV 8.0, Neut % (Auto) 91.2 H, Lymph % (Auto) 3.5 L, [place] % (Auto) 4.7, Eos % (Auto) 0.5, Baso % (Auto) 0.1, Neut # (Auto) 9.6 H, Lymph # (Auto) 0.4 L, [place] # (Auto) 0.5, Eos # (Auto) 0.1, Baso # (Auto) 0.0, Total Counted 100, Neutrophils % (Manual) 92 H, Lymphocytes % (Manual) 5 L, Monocytes % (Manual) 3, Platelet Estimate Normal, RBC Morphology Normal 12/03/22 06:19: Sodium 139, Potassium 4.2, Chloride 105, Carbon Dioxide 30, Anion Gap 8.2, BUN 36 H, Creatinine 1.10 H, Estimated Creat Clear 66, Estimated GFR 47 L, Est GFR ( Amer) 57 L, Glucose 103 H, Calcium 9.9, M
[2022-12-03 11:25] VITALS: BP 153/90; PULSE 80; RESP 18; TEMP 36.6; O2SAT 95
--- NOTE | 2022-12-03 11:39 | CARE MANAGER ---
Patient uses [facility] already and wishes to continue to use them now for continuous O2.
[2022-12-03 11:41] VITALS: BMI 39.2
[2022-12-03 12:00] VITALS: PULSE 83
--- NOTE | 2022-12-05 12:10 | CARE MANAGER ---
Contacted patient related to hospital discharge. She states she has her medications and is aware of her follow up appointment. Denies any questions or concerns. GILBERT Lane
== END 2022-12-03 13:05 | disposition home health service (06) | DRG 291 ==
LOC: ER 16:37 → 2ND 16:55
PROVIDERS: Internal Medicine Adolescent Medicine; Admitting Provider Family Medicine; Emergency Provider Emergency Medicine; PCP Internal Medicine; Visit Provider Family Medicine
DX: I50.33 Acute on chronic diastolic (congestive) heart failure (principal); I26.99 Other pulmonary embolism without acute cor pulmonale; J96.21 Acute and chronic respiratory failure with hypoxia; J44.9 Chronic obstructive pulmonary disease, unspecified; G20 Parkinson's disease; Z87.891 Personal history of nicotine dependence; Z79.899 Other long term (current) drug therapy; Z93.3 Colostomy status; I25.10 Atherosclerotic heart disease of native coronary artery without angina pectoris; K21.9 Gastro-esophageal reflux disease without esophagitis; N18.30 Chronic kidney disease, stage 3 unspecified; I48.91 Unspecified atrial fibrillation
CPT/HCPCS: G0378; 36415; 71045; 74177; 80053; 81001; 83605; 83735; 83880; 84145; 84436; 84443; 84484; 85007; 85025; 87040; 87086; 87088; 87186; 87636; 93005; 93306; 94640; 97116; 97163; 97530; 99285; C9803; Q9967; U0003; U0005

== ENCOUNTER 2022-12-04 23:09 | Emergency (ER) | payer MEDICARE, SELFPAY ==
[2022-12-04 23:11] VITALS: BP 167/85; PULSE 81; RESP 21; TEMP 36.6; O2SAT 95; BMI 39.1
--- NOTE | 2022-12-04 23:41 | XR_ITS ---
PROCEDURE INFORMATION: Exam: XR Chest Exam date and time: 12/04/2022 11:52 PM Age: 82 years old Clinical indication: Other: Back/posterior chest; Patient HX: Recent discharge from hospital for chf & pe. C/O worsening pain TECHNIQUE: Imaging protocol: Radiologic exam of the chest. Views: 1 view. COMPARISON: CR XR CHEST PORTABLE 11/30/2022 2:45 PM FINDINGS: Lungs: Chronic subsegmental atelectasis/scarring of right mid to lower lung zone. Stable left basilar subsegmental atelectasis. Pleural spaces: Unremarkable. No pleural effusion. No pneumothorax. Heart/Mediastinum: Mediastinum aorta cardiac silhouettes stable. Bones/joints: Unremarkable. IMPRESSION: Stable radiographs with stable right mid to lower lung zone subsegmental atelectasis/scarring.
--- NOTE | 2022-12-04 23:56 | PC.NURSE ---
RAD at for CXR
--- NOTE | 2022-12-05 | ECG_ITS ---
APPROVED REPORT Exam: Resting ECG HR:74 bpm ECG Measurements Heart Rate 74 AXES DE 144 P 62 QRSd 107 QRS -51 QT 428 T 58 QTc 456 Conclusion SINUS RHYTHM PATTERN CONSISTENT WITH PULMONARY DISEASE LEFT ANTERIOR FASCICULAR BLOCK [QRS AXIS <= -45, QR IN I, RS IN II] MINIMAL VOLTAGE CRITERIA FOR LVH, CONSIDER NORMAL VARIANT [MEETS CRITERIA IN ONE OF: R(aVL), S(V1), R(V5), R(V5/V6)+S(V1)] POSSIBLE SEPTAL MYOCARDIAL INFARCTION , OF INDETERMINATE AGE [30 ms Q WAVE IN V1/V2] ABNORMAL ECG UNCONFIRMED REPORT Electronically signed by : Anthony Dc MD 12/05/2022 08:50:08
[2022-12-05 00:01] LABS: Alanine Aminotransferase 54 U/L (12-78); Albumin Level 3.4 g/dl (3.5-5.0); Albumin/Globulin Ratio 1.3 (1.1-1.8); Alkaline Phosphatase 74 U/L (38-126); Anion Gap 14.1 mEq/L (5-15); Aspartate Amino Transferase 67 U/L (14-36); Bilirubin,Total 0.7 mg/dl (0.2-1.3); Blood Urea Nitrogen 35 mg/dl (7-17); Calcium 9.4 mg/dl (8.4-10.2); Carbon Dioxide 27 mmol/L (22.0-30.0); Chloride 102 mmol/L (98-107); Creatinine Clearance Estimated 65 mL/min (50-200); Estimated Glomerular Filt Rate 47 ml/min (>60); GFR (African American) 57 ML/MIN (>60); Globulin 2.7 g/dL (1.3-3.2); Glucose 119 mg/dl (74-100); Potassium 4.1 mmoL/L (3.5-5.1); Sodium 139 mmol/L (136-145); Total Protein,Serum 6.1 g/dl (6.3-8.2)
[2022-12-05 00:02] LABS: Basophils % 0.2 % (0.1-2.0); Eosinophils % 0.2 % (0.1-12.0); Hematocrit 36.8 % (37.0-47.0); Hemoglobin 11.8 g/dL (12.2-16.2); Lymphocytes # 0.3 K/mm3 (0.7-4.5); Mean Corpuscular HGB Conc 32.2 g/dL (31.8-35.4); Mean Corpuscular Hemoglobin 31.9 pg (27.0-31.2); Mean Corpuscular Volume 99.2 fl (81-99); Mean Platelet Volume 8.5 fl (7.4-10.4); Monocytes # 0.4 K/mm3 (0.1-1.0); Monocytes % 4.3 % (1.7-9.3); Neutrophils # 7.9 K/mm3 (1.8-7.8); Neutrophils % 92.5 % (37.0-80.0); Platelet Count 219 K/mm3 (142-424); Red Blood Count 3.71 M/mm3 (4.20-5.40); Red Cell Distribution Width 14.9 % (11.5-17.5); White Blood Count 8.6 K/mm3 (4.8-10.8)
[2022-12-05 00:04] LABS: MANUAL DIFFERENTIAL MANUAL DIFFERENTIAL (MANUAL DIFF)
[2022-12-05 00:15] LABS: Troponin I 0.01 ng/ml (0.00-0.034)
[2022-12-05 00:18] VITALS: BP 170/83; PULSE 74; RESP 18; O2SAT 97
[2022-12-05 00:27] LABS: Lymphocytes % 6 % (10-50); Macrocytosis 1+; Monocytes % 3 % (2-9); Neutrophils % 91 % (42-76); Platelet Estimate Normal; Total Cells Counted 100
[2022-12-05 00:30] VITALS: BP 170/80; PULSE 76; RESP 20; O2SAT 95
--- NOTE | 2022-12-05 00:54 | HMH.EDBACK ---
Discharge Plan Disposition Patient Disposition: Home, Self-Care Prescriptions Prescriptions: New acyclovir 800 mg tablet 800 mg PO Q6H Qty: 40 0RF No Action omega-3 fatty acids 1,000 mg capsule 1,000 mg PO DAILY Centrum Women 18-400 mg-mcg tablet 1 tab PO DAILY zinc acetate 50 mg (zinc) capsule 50 mg PO DAILY Rx Instructions: swallow whole; do not chew/break/dissolve/open prednisone 10 mg tablet 10 mg PO BID ascorbic acid (vitamin C) 1,000 mg tablet 1 g PO DAILY pantoprazole [Protonix] 40 mg tablet,delayed release (DR/EC) 40 mg PO DAILY mirtazapine [Remeron] 15 mg tablet 7.5 mg PO HS cyanocobalamin (vitamin B-12) 1,000 mcg/mL solution 1,000 mcg IM WEEKLY cholecalciferol (vitamin D3) 25 mcg (1,000 unit) capsule 25 mcg PO DAILY Caltrate 600 plus D 600 mg-20 mcg (800 unit) tablet,chewable 1 tab PO DAILY Niferex (Sumalate-Quatrefolic) 150 mg iron- 60 mg-1 mg tablet 1 tab PO DAILY amiodarone 200 mg tablet 200 mg PO DAILY ipratropium-albuterol 0.5 mg-3 mg(2.5 mg base)/3 mL solution for nebulization 3 ml INHALATION Q6H PRN (Reason: shortness of breath or wheezing) Qty: 90 6RF albuterol sulfate 90 mcg/actuation HFA aerosol inhaler 2 inh inhalation QID PRN (Reason: shortness of breath or wheezing) 90 Days Qty: 8.5 2RF carbidopa-levodopa 25-100 mg tablet extended release 1 tab PO QID levothyroxine 75 MCG tablet 75 mcg PO DAILY citalopram 20 MG tablet 20 mg PO DAILY potassium chloride 20 mEq tablet,ER particles/crystals 20 meq PO DAILY azelastine 137 mcg (0.1 %) aerosol,spray 2 spray intranasal HS Rx Instructions: administer into each nostril fluticasone propionate [Flonase Allergy Relief] 50 mcg/actuation spray,suspension 2 spray intranasal DAILY Rx Instructions: administer into each nostril Stiolto Respimat 2.5-2.5 mcg/actuation mist 2 puff INHALATION DAILY tizanidine 4 mg Tablet 4 mg PO HSP PRN (Reason: Muscle Spasm) Qty: 0 0RF hydrocodone-acetaminophen 5-325 mg Tablet 1 tab PO Q8HP PRN (Reason: Moderate Pain (4-6)) Qty: 0 0RF nystatin 100,000 unit/gram Powder 1 applic topical QID 10 Days Qty: 15 0RF Eliquis 5 mg Tablet See Rx Instructions .ROUTE .COMPLEX 30 Days Qty: 70 0RF Rx Instructions: 2 tabs BID for 7 days followed by 1 tab bid thereafter. cefdinir 300 mg capsule 300 mg PO BID 1 Days Qty: 2 0RF bumetanide 1 mg tablet 1 mg PO BID PRN (Reason: edema) 30 Days Qty: 60 0RF Referrals Follow up/Referrals: Azael Pritchard MD [Primary Care Provider] - See instructions Clinical Impressions Clinical Impression: Shingles rash Instructions Patient Instructions: DI for Shingles Discharge ED Provider: Alexander (ED),Demar Lopez Back Pain HPI General Chief Complaint: Back Pain/Injury Stated Complaint: Blood Clot in lung,pain in back Time Seen by Provider: 12/05/22 00:20 Mode of Arrival: Wheelchair Source of Information: Patient and Medical Record Limitations: No Limitations Description of Symptoms (Recalled from ER Triage Doc. by RN): pt c/o increasing bilateral mid thoraic pain that worsen with excertion. pt was discharged on 12/03 for CHF overload, and right PE with new O2 requirement History of Present Illness HPI Narrative: pt with back pain which started today with hx of pul emboli and chf with recent admit Complaint: back pain Onset (ago): hour(s) Duration: intermittent Similar Symptoms Previously: No Location: thoracic spine Severity: moderate Relieving factors: movement Associated symptoms: denies other symptoms Related Data Home Medications Medication Instructions Recorded Confirmed citalopram 20 mg tablet 20 mg PO DAILY Depression 04/11/18 11/30/22 multivitamin-ferrous 1 tab PO DAILY Supplement 11/18/19 11/30/22 fumarate-folic acid 18 mg-400 mcg tablet (Centrum Women) omega-3 fatty acids 1,
[2022-12-05 01:09] VITALS: BP 168/70; PULSE 71; RESP 18; TEMP 36.6; O2SAT 96
== END 2022-12-05 01:22 | disposition home or self-care (01) ==
PROVIDERS: Emergency Provider Emergency Medicine; PCP Internal Medicine
DX: B02.8 Zoster with other complications (principal); M54.6 Pain in thoracic spine; J44.9 Chronic obstructive pulmonary disease, unspecified; I50.30 Unspecified diastolic (congestive) heart failure; Z87.891 Personal history of nicotine dependence
CPT/HCPCS: 71045; 80053; 84484; 85007; 85025; 93005; 99284; 99285

== ENCOUNTER → 2023-03-23 19:25 | Outpatient (CLI) | payer MEDICARE, SELFPAY | PROVIDERS: PCP Internal Medicine; Visit Provider Internal Medicine | DX: N39.0 Urinary tract infection, site not specified (principal) ==

== ENCOUNTER → 2023-03-25 17:36 | Outpatient (CLI) | payer MEDICARE, SELFPAY ==
--- OUTSIDE RECORDS SUMMARY | 2023-03-25 17:41 | XMS_ITS ---
Author Name Unknown Address [address] [place] [address] Phone Organization [facility] Address [address] [place] [address] Phone Care Team Providers Care Joint Runner Name Role Phone Gregory HOLBROOK, Lalo Marley [phone] Conditions or Problems No information available. Medications No information available. Medications Administered No information available. Allergies, Adverse Reactions, Alerts Allergy Name Reaction Description Start Date Severity Statu s Provider STATINS Moderate Active Lalo harmon MD Results Date Name Value Unit Range Flag Description Office Visit: room 14 tele MEDS REVIEW Done Documenta tion of current medications (procedure) Plan of Care Type Date Detail Pending order Change IV antibi otics Pending order Weekly Labs (Con tinue) Pending order Weekly PICC Line Care Procedures Code Procedure Name Date Entry Date CPT-umer Change IV antibiotics CPT-cwl Weekly Labs (Continue) 04/03 CPT-wpc Weekly PICC Line Care Vital Signs No information available. Immunizations No information available. Advance Directives No information available.
--- OUTSIDE RECORDS SUMMARY | 2023-03-25 17:41 | XMS_ITS ---
Author Name Unknown Address [address] [place] [address] Phone Organization [facility] Address [address] [place] [address] Phone Care Team Providers Care Executive Consultant Name Role Phone Lalo Jenkins MD Unavailable [phone] Conditions or Problems No information available. Medications No information available. Medications Administered No information available. Allergies, Adverse Reactions, Alerts No information available. Results Date Name Value Unit Range Flag Description Office Visit: [facility] MEDS REVIEW Done Documenta tion of current medications (procedure) ORALTOBACUSE Never Tobacco smoking status SMOK STATUS Former smoker Tob acco smoking status Plan of Care Type Date Detail Pending order CBC with Differe ntial Pending order C- reactive prot ein Pending order Sedimentation Ra te (ESR) Pending order Discontinue oral antibiotics Procedures Code Procedure Name Date Entry Date [id number] CBC with Differential 2022 CPT-39641 C- reactive protein CPT-39471 Sedimentation Rate (ESR) 202 08/08/15 CPT-oral Discontinue oral antibiotics Vital Signs Date Name Value Unit Description BMI (Body Mass Index) 34.14 kg/m2 Bod y Mass Index (Ratio) Body Temperature 98.1 [degF] temperat ure E&M BP Diastolic 78 m
--- OUTSIDE RECORDS SUMMARY | 2023-03-25 17:41 | XMS_ITS ---
Author Name Unknown Address [address] [place] [address] Phone Organization [facility] Address [address] [place] [address] Phone Care Team Providers Care Nuclear Fuels Research Engineer Name Role Phone Gregory HOLBROOK, Lalo Marley Conditions or Problems No information available. Medications Medication Instructions Start Date Stop Date Generic Name [facility] Provider CEFDINIR 300 MG CAPS Take 1 capsule by mouth twice a day cefdinir [id number] Lalo Jenkins MD METRONIDAZOLE 500 MG TABS Take 1 tablet by mouth three times a day metronidazole [id number] Lalo Jenkins MD PREDNISONE 2.5 MG TABS 1 by mouth twice a day prednisone [id number] Marissa Wilkinson HYDROCODONE-ACET AMINOPHEN 5-325 MG TABS as needed for pain hydrocodone-acet aminophen [id number] Marissa Wilkinson MELOXICAM 7.5 MG TABS 7.5 mg, Oral, Daily PRN meloxicam [id number] Marissa Wilkinson Medications Administered No information available. Allergies, Adverse Reactions, Alerts No information available. Results Date Name Value Unit Range Flag Description Office Visit: room 11 ORALTOBACUSE
--- OUTSIDE RECORDS SUMMARY | 2023-03-25 17:41 | XMS_ITS ---
Author Name Unknown Address [address] [place] [address] Phone Organization [facility] Address [address] [place] [address] Phone Care Team Providers Care [employer] Anchor Name Role Phone Lalo Jenkins MD [phone] Conditions or Problems No information available. Medications Medication Instructions Start Date Stop Date Generic Name [facility] Provider ELIQUIS 5 MG TABS 5 mg, Oral, Every 12 Hours Scheduled apixaban [id number] Apurva Minor Medications Administered No information available. Allergies, Adverse Reactions, Alerts No information available. Results Date Name Value Unit Range Flag Description Office Visit: MEDS REVIEW Done Documenta tion of current medications (procedure) ORALTOBACUSE Never Tobacco smoking status SMOK STATUS Former smoker Tob acco smoking status Plan of Care No information available. Procedures No information available. Vital Signs Date Name Value Unit Description BMI (Body Mass Index) 34.28 kg/m2 Bod y Mass Index (Ratio) Body Temperature 98.1 [degF] temperat ure E&M BP Diastolic 76 mm[Hg] blood pressu re, diastolic BP Systolic 122 mm[Hg] blood pressur e, systolic Heart Rate 72 /min pulse rate Height 65.0 [in_us] height E&M Respiratory Rate 18 /min respirat ory rate E&M
--- OUTSIDE RECORDS SUMMARY | 2023-03-25 17:41 | XMS_ITS | Clinical Summary ---
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
--- OUTSIDE RECORDS SUMMARY | 2023-03-25 17:41 | XMS_ITS ---
Author Name Unknown Address [address] [place] [address] Phone Organization [facility] Address [address] [place] [address] Phone Care Team Providers Care Manager Business Continuity Name Role Phone Lalo Jenkins MD [phone] Conditions or Problems No information available. Medications Medication Instructions Start Date Stop Date Generic Name [facility] Provider ELIQUIS 5 MG TABS 10 mg, Oral, Every 12 Hours Scheduled apixaban [id number] [facility] POTASSIUM CHLORIDE AZ ER 20 MEQ CR-TABS 2 tablet by mouth twice a day potassium chloride 18732853097 Miriam [facility] FAMOTIDINE 20 MG TABS 1 twice a day famotidine [id number] Miir[facility] AMIODARONE HCL 200 MG TABS once a day amiodarone [id number] [facility] IBUPROFEN 200 MG TABS 3 tablet by mouth every twelve hours ibuprofen [id number] [facility] BUMETANIDE 2 MG TABS 1 by mouth twice a day bumetanide [id number] [facility] IPRATROPIUM-ALBU TEROL 0.5-2.5 (3) MG/3ML SOLN Take 3 mL by nebulization Every 6 (Six) Hours., ipratropi
--- OUTSIDE RECORDS SUMMARY | 2023-03-25 17:41 | XMS_ITS ---
Author Name Unknown Address [address] [place] [address] Phone Organization [facility] Address [address] [place] [address] Phone Care Team Providers Care Mining Speculator Name Role Phone Gregory HOLBROOK, Lalo Marley [phone] Conditions or Problems No information available. Medications Medication Instructions Start Date Stop Date Generic Name ND Provider CEFDINIR 300 MG CAPS Take 1 capsule by mouth twice a day cefdinir [id number] Lalo Jenkins MD METRONIDAZOLE 500 MG TABS Take 1 tablet by mouth twice a day metronidazole 50662046629 Lalo Jenkins MD Medications Administered No information available. Allergies, Adverse Reactions, Alerts No information available. Results Date Name Value Unit Range Flag Description Office Visit: MEDS REVIEW Done Documenta tion of current medications (procedure) SMOK STATUS Former smoker Tob acco smoking status Plan of Care Type Date Detail Referral CT Abdomen with/ without contrast Pending order CBC with Differe ntial Pending order C- reactive prot ein Pending order Sedimentation Ra te (ESR) Pending order STAT Labs Pending order
--- OUTSIDE RECORDS SUMMARY | 2023-03-25 17:41 | XMS_ITS ---
Author Name Unknown Address [address] [place] [address] Phone Organization [facility] Address [address] [place] [address] Phone Care Team Providers Care Food And Beverage Controller Name Role Phone Gregory HOLBROOK, Lalo Marley [phone] Conditions or Problems No information available. Medications Medication Instructions Start Date Stop Date Generic Name ND Provider CEFDINIR 300 MG CAPS Take 1 capsule by mouth twice a day cefdinir [id number] Lalo Jenkins MD METRONIDAZOLE 500 MG TABS Take 1 tablet by mouth three times a day metronidazole 48768216501 Lalo Jenkins MD Medications Administered No information available. Allergies, Adverse Reactions, Alerts No information available. Results Date Name Value Unit Range Flag Description Office Visit: 13 tele ORALTOBACUSE Never Tobacco smoking status SMOK STATUS Former smoker Tob acco smoking status MEDS REVIEW Done Documenta tion of current medications (procedure) Plan of Care Type Date Detail Pending order Continue oral an tibiotics Procedures Code Procedure Name Date Entry Date CPT-Cooral Continue oral antibiotics 30/06/25 Vital Signs Date Name Value Unit Description
== END ==
PROVIDERS: PCP Internal Medicine; Visit Provider Internal Medicine
DX: N39.0 Urinary tract infection, site not specified (principal)
CPT/HCPCS: 87086

== ENCOUNTER 2023-06-03 08:02 | Emergency (ER) | payer MEDICARE, SELFPAY ==
[2023-06-03] VITALS (10 sets, daily range): BP systolic 121–144; BP diastolic 55–84; PULSE 73–77; RESP 16–20; TEMP 36.8; O2SAT 95–99; BMI 37.1
--- NOTE | 2023-06-03 08:08 | PC.NURSE ---
Dr. Lomas at [facility] for pt eval
--- NOTE | 2023-06-03 08:19 | XR_ITS ---
FINAL REPORT CLINICAL HISTORY: Shortness of breath COMPARISON: 11/30/2022 FINDINGS: The heart size is normal. The mediastinum is normal. There are chronic changes in both lungs. There is scarring or atelectasis in the right base. There are no pleural effusions. There is no pneumothorax. There is no osseous abnormality. IMPRESSION: Scarring or atelectasis right lung base. Reviewed, Interpreted and Dictated by Jam Wesley MD Transcribed by Luz Randle Authenticated and [facility]
--- NOTE | 2023-06-03 08:20 | ED_ITS ---
Discharge Plan Disposition Patient Disposition: Home, Self-Care Prescriptions Prescriptions: No Action omega-3 fatty acids 1,000 mg capsule 1,000 mg PO DAILY ascorbic acid (vitamin C) 1,000 mg tablet 1 g PO DAILY pantoprazole [Protonix] 40 mg tablet,delayed release (DR/EC) 40 mg PO DAILY mirtazapine [Remeron] 15 mg tablet 7.5 mg PO HS cyanocobalamin (vitamin B-12) 1,000 mcg/mL solution 1,000 mcg IM WEEKLY Caltrate 600 plus D 600 mg-20 mcg (800 unit) tablet,chewable 1 tab PO DAILY Niferex (Sumalate-Quatrefolic) 150 mg iron- 60 mg-1 mg tablet 1 tab PO DAILY albuterol sulfate 90 mcg/actuation HFA aerosol inhaler 2 inh inhalation QID PRN (Reason: shortness of breath or wheezing) 90 Days Qty: 8.5 2RF carbidopa-levodopa 25-100 mg tablet extended release 1 tab PO QID levothyroxine 75 MCG tablet 75 mcg PO DAILY acyclovir 800 mg tablet 300 mg PO Q6H nystatin 100,000 unit/gram powder 1 applic topical NEEDED PRN (Reason: rash) Eliquis 5 mg tablet 5 mg PO DAILY Rx Instructions: 2 tabs BID for 7 days followed by 1 tab bid thereafter. furosemide [Lasix] 40 mg Tablet 40 mg PO DAILY spironolactone 25 mg Tablet 25 mg PO DAILY citalopram 20 MG tablet 20 mg PO DAILY potassium chloride 20 mEq tablet,ER particles/crystals 20 meq PO DAILY azelastine 137 mcg (0.1 %) aerosol,spray 2 spray intranasal NEEDED PRN (Reason: per MD) Rx Instructions: administer into each nostril fluticasone propionate [Flonase Allergy Relief] 50 mcg/actuation spray,suspension 2 spray intranasal DAILY Rx Instructions: administer into each nostril Stiolto Respimat 2.5-2.5 mcg/actuation mist 2 puff INHALATION DAILY tizanidine 4 mg Tablet 4 mg PO HSP PRN (Reason: Muscle Spasm) Qty: 0 0RF hydrocodone-acetaminophen 5-325 mg Tablet 1 tab PO Q8HP PRN (Reason: Moderate Pain (4-6)) Qty: 0 0RF Referrals Follow up/Referrals: Azael Pritchard MD [Primary Care Provider] - See instructions Elan Obrien MD [Staff Physician] - See instructions Delano Martinez MD [Staff Physician] - See instructions Activity Restrictions/Add. Instructions Additional Instructions/Restrictions: At this time it was felt you are safe to be discharged home. If new or worsening symptoms please do not hesitate to return the emergency department. Please use compression stockings as much as you are able as discussed. Please increase your Lasix to 40 mg twice a day for the next 3 days then go back to your regular regimen of 40 mg once daily. Cardiology would like to see you in clinic next week, please call and schedule an appointment. Follow-up with your family doctor within 1 week to assess possible catheter removal. Please follow- up with urology on July 13 at 915. Clinical Impressions Clinical Impression: Volume overload, Urinary retention Discharge ED Provider: Beny Lomas General Adult HPI General Chief complaint: Extremity Problem,Nontraumatic Stated complaint: Exteme pain in lower extremities, swelling Time Seen by Provider: 06/03/23 08:04 Mode of Arrival: Wheelchair Source of Information: Patient and Relative Limitations: No Limitations Description of Symptoms (Recalled from ER Triage Doc. by RN): pt to ed accompanied by daughter who states her bilateral lower etremities are swollen, red and itchy. pt states it has progressed over the last week. daughter states she doubled her lasix and potassium last night. daughter reports a hx of chf. History of Present Illness HPI narrative: Patient is a 82-year-old female with past medical history of COPD on 2 L nasal cannula at baseline, CHF, perforated diverticulitis status post surgical intervention with ostomy placement who presents emergency department for evalua tion of leg swelling. She is accompanied by her daughter at bedside who reports the majority of the history. She states that patient is on oral Lasix however over the last week patient has had progressive bilateral lower extremity swelling. Dry weight reportedly 230 pounds. In an effort to relieve the swelling daughter doubled the home dose of Lasix, doubled the home dose of spironolactone, gave oral potassium and oral magnesium. Distal lower extremities have become erythematous and tender to palpation with associated itching. For this daughter gave her home dose of [place]. Due to refractory symptoms she presents here for continued evaluation. Related Data Home Medications Medication Instructions Recorded Confirmed citalopram 20 mg tablet 20 mg PO DAILY Depression 04/11/18 06/03/23 omega-3 fatty acids 1,000 mg 1,000 mg PO DAILY Cholesterol 11/18/19 06/03/23 capsule carbidopa ER 25 mg-levodopa 100 mg 1 tab PO QID parkinson's disease 12/19/19 06/03/23 tablet,extended release levothyroxine 75 mcg tablet 75 mcg PO DAILY hypothyroidism 12/19/19 06/03/23 pantoprazole 40 mg tablet,delayed 40 mg PO DAILY Acid reflux 05/20/22 06/03/23 release (Protonix) ascorbic acid (vitamin C) 1,000 mg 1 g PO DAILY Supplement 05/27/22 06/03/23 tablet calcium carbonate 600 mg-vitamin 1 tab PO DAILY Acid reflux 05/27/22 06/03/23 D3 20 mcg (800 unit) chewable tablet (Caltrate 600 plus D) cyanocobalamin (vitamin B-12) 1,000 mcg IM WEEKLY Supplement 05/27/22 06/03/23 1,000 mcg/mL injection solution iron 150 mg-vit C 60 mg-folate 1 1 tab PO DAILY Supplement 05/27/22 06/03/23 [id number] tablet (Niferex (Sumalate-Quatrefolic)) mirtazapine 15 mg tablet (Remeron) 7.5 mg PO HS Restless leg syndrome 05/27/22 06/03/23 potassium chloride 20 mEq 20 meq PO DAILY potassium 05/27/22 06/03/23 tablet,extended release(part/cryst) replacement azelastine 137 mcg (0.1 %) nasal 2 spray intranasal NEEDED PRN 11/30/22 06/03/23 spray aerosol per MD fluticasone propionate 50 2 spray intranasal DAILY Allergy 11/30/22 06/03/23 mcg/actuation nasal symptoms spray,suspension (Flonase Allergy Relief) tiotropium 2.5 mcg-olodaterol 2.5 2 puff inhalation DAILY Breathing 11/30/22 06/03/23 mcg/actuation mist for inhalation problems (Stiolto Respimat) acyclovir 800 mg tablet 300 mg PO Q6H 06/03/23 06/03/23 apixaban 5 mg tablet (Eliquis) 5 mg PO DAILY 06/03/23 06/03/23 furosemide 40 mg tablet (Lasix) 40 mg PO DAILY 06/03/23 06/03/23 nystatin 100,000 unit/gram topical 1 applic topical NEEDED PRN rash 06/03/23 06/03/23 powder spironolactone 25 mg tablet 25 mg PO DAILY 06/03/23 06/03/23 Previous Rx's Medication Instructions Recorded albuterol sulfate 90 mcg/actuation 2 inh inhalation QID PRN shortness 10/30/22 aerosol inhaler of breath or wheezing 90 days #8.5 grams hydrocodone 5 mg-acetaminophen 325 1 tab PO Q8HP PRN Moderate Pain 12/03/22 mg tablet (4-6) #0 tabs tizanidine 4 mg tablet 4 mg PO HSP PRN Muscle Spasm #0 12/03/22 tabs Allergies Allergy/AdvReac Type Severity Reaction Status Date / Time nitrofurantoin Allergy Unknown Unknown Verified 10/30/22 15:42 [From MACROBID] allergy reaction Penicillins [PENICILLINS] Allergy Unknown Unknown Verified 10/30/22 15:42 allergy reaction Sulfa (Sulfonamide Allergy Unknown Unknown Verified 10/30/22 15:42 Antibiotics) allergy [SULFA (SULFONAMIDE reaction ANTIBIOTICS)] [id number] Reductase AdvReac Severe Verified 10/30/22 15:42 Inhibitor PFSH PFSH Disclaimer: The information contained in this section may have been updated after the patient was seen, as this information can be updated by other users. Medical History (Updated 06/03/23 @ 12:24 by Beny Lomas MD) Allergic rhinitis Asthma Chronic cough COPD (chronic obstructive pulmonary disease) COPD (chronic obstructive pulmonary disease) Diastolic heart failure Dyspnea on exertion Dyspnea on exertion History of gastroesophageal reflux (GERD) Surgical History History of cholecystectomy History of colectomy History of hysterectomy Family History Other No significant family history Social History Smoking Status: Never smoker second hand exposure: Yes alcohol intake: never substance use type: denies use current occupational status: employed Travel in the last 8 weeks: None household members: none housing: house current occupation: [employer] current occupational exposures/hazards: No caffeine: Yes ROS Obtained: Yes Systems reviewed as appropriate & no additional complaints except as documented Physical Exam General General appearance: alert and in no apparent distress Head Head exam: atraumatic and normocephalic Eye Eye exam: Present PERRL and EOMI ENT ENT exam: Present mucous membranes moist Neck Neck exam: Present normal inspection Chest Chest inspection: Present normal inspection and symmetric chest wall rise Respiratory Respiratory exam: Present normal lung sounds bilaterally; Absent respiratory distress or wheezes Cardiovascular Cardiovascular exam: Present regular rate and normal rhythm Abdominal Exam Abdominal exam: Present soft Extremities Exam Extremities exam: Present other (3+ bilateral lower extremity edema distal to the knee, symmetric erythema over the distal jiménez down. No proximal hip discoloration or asymmetric swelling. Capillary refill preserved in both feet.) Neurological Exam Neurological exam: Present alert Psychiatric Psychiatric exam: Present normal affect Skin Skin exam: Present warm and dry Medical Decision Making Angel Inquiry Pt receiving controlled substance: No Vital Signs: 06/03/23 08:13 06/03/23 09:01 06/03/23 09:30 Temperature 98.3 F Temperature Source Oral Pulse Rate 73 75 Pulse Rate [Left Radial] 74 Respiratory Rate 20 Blood Pressure 129/84 144/63 H Blood Pressure [Right Arm] 130/72 Blood Pressure Mean Blood Pressure Mean [Right Arm] 91 02 Sat by Pulse Oximetry 95 98 98 Oxygen Delivery Method Room Air Nasal Cannula Nasal Cannula Oxygen Flow Rate (LPM) 2 2 06/03/23 10:01 06/03/23 11:00 06/03/23 11:30 Temperature Temperature Source Pulse Rate 73 74 76 Pulse Rate [Left Radial] Respiratory Rate 20 18 20 Blood Pressure 126/60 121/64 125/62 Blood Pressure [Right Arm] Blood Pressure Mean 80 83 83 Blood Pressure Mean [Right Arm] 02 Sat by Pulse Oximetry 97 99 98 Oxygen Delivery Method Nasal Cannula Nasal Cannula Oxygen Flow Rate (LPM) 2 2 06/03/23 12:30 06/03/23 13:00 Temperature Temperature Source Pulse Rate 77 76 Pulse Rate [Left Radial] Respiratory Rate Blood Pressure 132/63 130/55 L Blood Pressure [Right Arm] Blood Pressure Mean Blood Pressure Mean [Right Arm] 02 Sat by Pulse Oximetry 97 98 Oxygen Delivery Method Nasal Cannula Nasal Cannula Oxygen Flow Rate (LPM) 2 2 Lab Data Lab Results 06/03/23 08:30: WBC 6.6, RBC 3.55 L, Hgb 10.9 L, Hct 34.4 L, MCV 96.9, MCH 30.8, MCHC 31.7 L, RDW 15.8, Plt Count 319, MPV 7.7, Neut % (Auto) 69.3, Lymph % (Auto) 21.2, Jackson % (Auto) 6.7, Eos % (Auto) 2.4, Baso % (Auto) 0.4, Neut # (A uto) 4.6, Lymph # (Auto) 1.4, Jackson # (Auto) 0.4, Eos # (Auto) 0.2, Baso # (Auto) 0.0, Sodium 138, Potassium 3.9, Chloride 102, Carbon Dioxide 32 H, Anion Gap 7.9, BUN 16, Creatinine 1.40 H, Estimated Creat Clear 50, Estimated GFR 36 L, Est GFR ( Amer) 43 L, Glucose 90, Calcium 10.2, Magnesium 1.8, Total Bilirubin 0.3, AST 38 H, ALT 11 L, Alkaline Phosphatase 84, Troponin I < 0.01, NT-Pro-B Natriuret Pep 45.0, Total Protein 6.8, Albumin 3.7, Globulin 3.1, Albumin/Globulin Ratio 1.2 06/03/23 11:52: Troponin I 0.02 06/03/23 12:08: Urine Color Yellow, Urine Appearance Clear, Urine pH 6.0, Ur Specific [place] 1.015, Urine Protein Negative, Urine Glucose (UA) Negative, Urine Ketones Negative, Urine Blood Negative, Urine Nitrate Negative, Urine Bilirubin Negative, Urine Urobilinogen 0.2, Ur Leukocyte Esterase Negative, Urine WBC Occasional, Ur Squamous Epith Cells Occasional, Urine Bacteria Trace 06/03/23 08:30 06/03/23 08:30 Orders (Tests/Meds): ED MEDICATIONS Generic Name Dose Route Start Last Admin Trade Name Freq PRN Reason Stop Dose Admin Sodium Chloride 10 ml 06/03/23 08:37 Sodium Chloride 0.9% 10ml Flush Syringe IV 07/03/23 08:36 NEEDED PRN Maintain IV Site Discontinued Medications Generic Name Dose Route Start Last Admin Trade Name Freq PRN Reason Stop Dose Admin Furosemide 80 mg 06/03/23 09:08 06/03/23 09:15 Furosemide 40mg/4ml Vial IV 06/03/23 09:09 80 mg ONCE ONE Administration ORDERS Category Date Time Status Cardiology Consult [Consult to Cardiology] [CONS] Cons 06/03/23 09:12 Active Routine CXR --portable [XR chest portable] Stat Exams 06/03/23 08:19 Completed POCUS Point of Care (ER Only) Stat Exams 06/03/23 08:13 Completed BNP [Brain Natriuretic Peptide] Stat Lab 06/03/23 08:30 Completed CBC w/Auto Diff [Complete Blood Count Auto Diff] Stat Lab 06/03/23 08:30 Completed CMP [Comprehensive Metabolic Panel] Stat Lab 06/03/23 08:30 Completed MG [Magnesium] Stat Lab 06/03/23 08:30 Completed Trop I [Troponin I] Stat Lab 06/03/23 08:30 Completed Troponin I Q3H Lab 06/03/23 11:52 Completed Troponin I Q3H Lab 06/03/23 14:30 Ordered Urinalysis and Microscopic Stat Lab 06/03/23 12:08 Completed CA echo doppler complete Stat Y 06/03/23 09:41 Completed CA venous doppler LE BI Stat Y 06/03/23 09:37 Completed ECG initial [place] Stat Y 06/03/23 08:25 Completed ECG repeat same [place] Stat Y 06/03/23 09:47 Completed ECG Data Tracing #1: Independently interpreted by me, rate is 71, rhythm is regular, flutter w aves and inferior leads, no ST elevation in anatomical contiguous leads. This is a change from previous ECG. Tracing #2: Independently interpreted by me, rate is 75, rhythm is regular, right bundle branch block, no ST elevation in anatomical contiguous leads, QTc 472. Medical Decision Narrative: In summary patient is 82-year-old female past medical history described above who presents emergency department for evaluation of lower extremity swelling. Patient is hemodynamically stable nontoxic-appearing upon arrival, afebrile. Based on history and physical exam I suspect volume overload secondary to either worsening CKD or worsening CHF. Review of echo conducted in November shows ejection fraction of 60 to 65%. No asymmetric swelling to suggest unilateral DVT, warm perfused extremities, no concern for arterial ischemia. Proximal DVT with bilateral lower extremity swelling is possible however patient is anticoagulated so this is less likely. Workup will be conducted with hematologic labs, chest x-ray, EKG, troponin, BNP, bilateral lower extremity duplex. [id number] ultrasound at bedside shows grossly normal ejection fraction, may be mildly decreased, no large pericardial effusion. There are B-lines over the left lung suggestive of volume overload. After creatinine is established Lasix will be dosed. EKG shows flutter waves with possible 3-1 block however rate is 70. EKG will be repeated. Patient is already on anticoagulation for previous pulmonary embolism. Was previously on amiodarone for atrial fibrillation per chart review, not currently taking. Initial hematologic labs reviewed by me, remarkable for elevated creatinine without true definition of ANKIT. 80 mg of IV Lasix will be administered. Patient's BNP is normal, lower extremity swelling may be due to worsening CKD, valvular incompetence, diastolic heart failure with falsely low BNP given that she is obese. Given EKG abnormalities, volume overload the case was discussed with cardiology and they evaluated the patient. Repeat EKG shows resolution of possible flutter waves, right bundle branch block. I suspect the previous flutter waves are artifact. Duplex ultrasound negative for acute DVT. Upon repeat evaluation patient had minimal urine output, bladder scan showed significant urine for which Dougherty was anchored with 2 L output. The exact etiology of her urinary retention is unknown however she does not have any acute lower extremity weakness, saddle anesthesia that would be concerning for spinal cord compression at this time. Given this from urologic standpoint Dougherty will be anchored and she will have rapid follow-up with urology. Cardiology reviewed serial troponins which are below upper limit of normal and recommends medication adjustment and expedited outpatient follow- up at this time for which patient will follow-up next week. Patient is appropriate for discharge at this time. Procedures Miscellaneous Procedure Procedure Performed: Indication: Shortness of breath, swelling Identified cardiac views: Parasternal long, left upper lobe lung Findings: Cardiac activity present, gross wall motion normal, ejection fraction grossly normal, may be slightly decreased. No large pericardial effusion. B-lines over the left upper lobe. Impression: -From above Images were to permanent archive The study was technically adequate CPT: 76160 This study was performed by me, and I personally interpreted all images/videos. Based on my clinical judgement, these images were [adequate/inadequate] and [did/did not] necessitate further imaging. Critical Care Critical Care Time Critical Care Time: No
--- NOTE | 2023-06-03 08:25 | ECG_ITS ---
APPROVED REPORT Exam: Resting ECG HR:71 bpm ECG Measurements Heart Rate 71 AXES TX 198 P 57 QRSd 150 QRS -62 QT 446 T 31 QTc 469 Conclusion SINUS RHYTHM RIGHT BUNDLE BRANCH BLOCK [120+ ms QRS DURATION, UPRIGHT V1, 40+ ms S IN I/aVL/V4/V5/V6] LEFT ANTERIOR FASCICULAR BLOCK [QRS AXIS <= -45, QR IN I, RS IN II] POSSIBLE SEPTAL MYOCARDIAL INFARCTION , PROBABLY OLD [30 ms Q WAVE IN V1/V2] ABNORMAL ECG UNCONFIRMED REPORT Electronically signed by : Anthony Dc MD 06/05/2023 08:04:13
--- NOTE | 2023-06-03 08:38 | PC.NURSE ---
RAD at for CXR
[2023-06-03 08:54] LABS: Basophils % 0.4 % (0.1-2.0); Eosinophils # 0.2 K/mm3 (0.0-0.4); Eosinophils % 2.4 % (0.1-12.0); Hematocrit 34.4 % (37.0-47.0); Hemoglobin 10.9 g/dL (12.2-16.2); Lymphocytes # 1.4 K/mm3 (0.7-4.5); Lymphocytes % 21.2 % (10-50); Mean Corpuscular HGB Conc 31.7 g/dL (31.8-35.4); Mean Corpuscular Hemoglobin 30.8 pg (27.0-31.2); Mean Corpuscular Volume 96.9 fl (81-99); Mean Platelet Volume 7.7 fl (7.4-10.4); Monocytes # 0.4 K/mm3 (0.1-1.0); Monocytes % 6.7 % (1.7-9.3); Neutrophils # 4.6 K/mm3 (1.8-7.8); Neutrophils % 69.3 % (37.0-80.0); Platelet Count 319 K/mm3 (142-424); Red Blood Count 3.55 M/mm3 (4.20-5.40); Red Cell Distribution Width 15.8 % (11.5-17.5); White Blood Count 6.6 K/mm3 (4.8-10.8)
[2023-06-03 09:01] LABS: Alanine Aminotransferase 11 U/L (12-78); Albumin Level 3.7 g/dl (3.5-5.0); Albumin/Globulin Ratio 1.2 (1.1-1.8); Alkaline Phosphatase 84 U/L (38-126); Anion Gap 7.9 mEq/L (5-15); Aspartate Amino Transferase 38 U/L (14-36); Bilirubin,Total 0.3 mg/dl (0.2-1.3); Blood Urea Nitrogen 16 mg/dl (7-17); Calcium 10.2 mg/dl (8.4-10.2); Carbon Dioxide 32 mmol/L (22.0-30.0); Chloride 102 mmol/L (98-107); Creatinine Clearance Estimated 50 mL/min (50-200); Estimated Glomerular Filt Rate 36 ml/min (>60); GFR (African American) 43 ML/MIN (>60); Globulin 3.1 g/dL (1.3-3.2); Glucose 90 mg/dl (74-100); Magnesium 1.8 mg/dl (1.6-2.3); Potassium 3.9 mmoL/L (3.5-5.1); Sodium 138 mmol/L (136-145); Total Protein,Serum 6.8 g/dl (6.3-8.2)
[2023-06-03 09:12] LABS: Troponin I < 0.01 ng/ml (0.00-0.034)
[2023-06-03] MEDS: FUROSEMIDE 40MG/4ML VIAL 80 MG IV (09:15)
--- NOTE | 2023-06-03 09:37 | CA_ITS ---
FINAL REPORT TECHNIQUE: Bilateral lower extremity venous duplex was performed with augmentation and compression. CLINICAL HISTORY: Swelling, CHF, redness, Hx-cellulitis COMPARISON: none FINDINGS: Proper flow is seen throughout the deep venous systems bilaterally. There is no evidence of deep venous thrombosis. IMPRESSION: No evidence of deep venous thrombosis. Reviewed, Interpreted and Dictated by Jam Wesley MD Transcribed by Luz Randle Authenticated and [facility]
--- NOTE | 2023-06-03 09:41 | CA_ITS ---
APPROVED REPORT EXAM: Comprehensive 2D, Doppler, and color-flow Echocardiogram Cna Hha: Cintia Posadas CRT Ht: 5 ft 6 in Wt: 230lbs BSA: 2.12 BP: 144/63 mmHg Indications: COPD, Shortness of Breath, Atrial Flutter, Peripheral Edema Pt up on Stretcher on her back d/t SOB, limited exam M-Mode Dimensions RVDd 2.58 cm (0.9-2.6) LA Diam 3.19 cm (1.9-4.0) LVDd 4.31 cm (3.5-5.7) LVDs 2.86 cm (3.5-5.7) IVSd 1.89 cm (0.6-1.1) PWd 1.53 cm (0.6-1.1) EF (Teich) 62.80% FS 33.60% EDV (Teich) 83.50 mL TAPSE 2.18 (<1.7) ESV (Teich) 31.10 mL LV Diastology E Decel Time 263 (160-240 msec) E/A Ratio 0.62 MED A' 13.00 cm/s LAT A' 11.60 cm/s Aortic Valve AO Peak GR. 8.50 mmHg Mitral Valve MV E Max David. 59.0 (40-130 cm/s) MV A Velocity 96.0 (40-130 cm/s) E/A Ratio 0.62 MV PHT 77.0 ms Pulmonary Valve PV Peak Velocity 85.0 (50-150 cm/s) Tricuspid Valve TR P. Velocity 160.00 cm/s RAP Estimate 10.00 mmHg RVSP 20.20 mmHg Left Ventricle The left ventricle is normal size. The left ventricular systolic function is normal. The left ventricular ejection fraction is within the normal range. There is increased LV wall thickness. There is normal LV segmental wall motion. Transmitral Doppler flow pattern suggests impaired LV relaxation. LVEF is 65%. Right Ventricle The right ventricle is mildly dilated. The right ventricular systolic function is normal. Atria The left atrium size is normal. The right atrium size is normal. The interatrial septum is not well-visualized. Aortic Valve The aortic valve is mildly thickened. There is no aortic valvular stenosis. Trace aortic regurgitation. Mitral Valve The mitral valve is mildly thickened. No evidence of mitral valve stenosis. Trace mitral regurgitation. Tricuspid Valve The tricuspid valve leaflets are thin and pliable. Trace tricuspid regurgitation. There is insufficient TR jet to estimate RVSP. Pulmonic Valve The pulmonic valve is not well-visualized. Great Vessels The aortic root is not well-visualized. The IVC is not well-visualized. Pericardium There is no pericardial effusion. Other Information Study Quality: Technically Difficult. Technically limited study due to inability to position patient. Conclusion Technically difficult and technically limited study due to difficulty positioning patient and poor acoustic windows. Normal biventricular systolic function. Mild RV dilation. No significant valvular stenosis or regurgitation in the visualized valves. Electronically signed by : Ana Martinez MD 06/03/2023 11:53:29
--- NOTE | 2023-06-03 09:47 | ECG_ITS ---
APPROVED REPORT Exam: Resting ECG HR:75 bpm ECG Measurements Heart Rate 75 AXES OH 202 P 57 QRSd 150 QRS -74 QT 443 T 35 QTc 472 Conclusion SINUS RHYTHM RIGHT BUNDLE BRANCH BLOCK [120+ ms QRS DURATION, UPRIGHT V1, 40+ ms S IN I/aVL/V4/V5/V6] LEFT ANTERIOR FASCICULAR BLOCK [QRS AXIS <= -45, QR IN I, RS IN II] POSSIBLE SEPTAL MYOCARDIAL INFARCTION , PROBABLY OLD [30 ms Q WAVE IN V1/V2] ABNORMAL ECG UNCONFIRMED REPORT Electronically signed by : Anthony Dc MD 06/05/2023 08:03:58
--- NOTE | 2023-06-03 10:01 | EXP.CARD.CON ---
History of Present Illness History of Present Illness Consult date: 06/03/23 Requesting physician: Beny Lomas Chief complaint: Bilateral lower extremity swelling and redness History of present illness: 82-year-old white female with past medical history of COPD on 2 L nasal cannula at baseline, heart failure with preserved ejection fraction, history of pulmonary embolism on Eliquis, perforated diverticulitis status post surgical intervention with ostomy placement presented to emergency department this morning with complaints lower extremity edema/ redness x 2 weeks. Daughter recently doubled home dose of Lasix, Aldactone, potassium and magnesium to help with lower extremity edema. On presentation to ER EKG had concern for flutter waves in inferior leads. A repeat EKG was performed which showed sinus rhythm at a rate of 75 with a right bundle branch block and resolution of flutter waves. First EKG likely showed artifact. Labs as follow: WBC 6.6, hemoglobin 10.9, sodium 138, potassium 3.9, creatinine 1.4, serial troponins negative, proBNP 45. Chest x-ray shows scarring or atelectasis of the right lung base. Patient was given Lasix 80 mg IV x 1 in ER. Bilateral lower extremity ultrasound is pending. Patient denies worsening shortness of breath from baseline or chest pain. [facility] Disclaimer: The information contained in this section may have been updated after the patient was seen, as this information can be updated by other users. Medical History (Updated 06/03/23 @ 11:38 by Beny Lomas MD) Allergic rhinitis Asthma Chronic cough COPD (chronic obstructive pulmonary disease) COPD (chronic obstructive pulmonary disease) Diastolic heart failure Dyspnea on exertion Dyspnea on exertion History of gastroesophageal reflux (GERD) Surgical History History of cholecystectomy History of colectomy History of hysterectomy Family History Other No significant family history Social History Smoking Status: Never smoker second hand exposure: Yes alcohol intake: never substance use type: denies use current occupational status: employed Travel in the last 8 weeks: None household members: none housing: house 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 current occupational exposures/hazards: No caffeine: Yes Review of Systems Review of Systems Review of systems:: pertinent systems reviewed and negative unless documented below *Cardiovascular Cardiovascular: Denies chest pain and Reports dyspnea *Respiratory Respiratory: Reports dyspnea Comments: Lower extremity edema Exam Data for Last 24 hours Vital signs and Labs for Last 24 Hours: Temp Pulse Resp BP Pulse Ox O2 Del Method O2 Flow Rate 98.3 F 75 20 144/63 H 98 Nasal Cannula 2 06/03/23 08:13 06/03/23 09:30 06/03/23 08:13 06/03/23 09:30 06/03/23 09:30 06/03/23 09:30 06/03/23 09:30 Laboratory Results - last 24 hr 06/03/23 08:30: WBC 6.6, RBC 3.55 L, Hgb 10.9 L, Hct 34.4 L, MCV 96.9, MCH 30.8, MCHC 31.7 L, RDW 15.8, Plt Count 319, MPV 7.7, Neut % (Auto) 69.3, Lymph % (Auto) 21.2, [place] % (Auto) 6.7, Eos % (Auto) 2.4, Baso % (Auto) 0.4, Neut # (Auto) 4.6, Lymph # (Auto) 1.4, [place] # (Auto) 0.4, Eos # (Auto) 0.2, Baso # (Auto) 0.0, Sodium 138, Potassium 3.9, Chloride 102, Carbon Dioxide 32 H, Anion Gap 7.9, BUN 16, Creatinine 1.40 H, Estimated Creat Clear 50, Estimated GFR 36 L, Est GFR ( Amer) 43 L, Glucose 90, Calcium 10.2, Magnesium 1.8, Total Bilirubin 0.3, AST 38 H, ALT 11 L, Alkaline Phosphatase 84, Troponin I < 0.01, NT-Pro-B Natriuret Pep 45.0, Total Protein 6.8, Albumin 3.7, Globulin 3.1, Albumin/Globulin Ratio 1.2 I & O for Last 24 hours: Intake & Output 05/31/23 06/01/23 06/02/23 06/03/23 23:59 23:59 23:59 23:59 Weight 230 lb Constitutional Constitutional: no acute distress *Routine Respiratory Exam Respiratory: Present CTA bilaterally and symmetric chest movement *Routine Cardiovascular Exam Cardiovascular: Present RRR, Normal S1 and Normal S2 *Routine Abdominal Exam Abdominal: Present soft and normoactive bowel sounds; Absent tenderness *Routine Extremities Exam Extremities: Present edema, full ROM and normal capillary refill Comments: Bilateral lower extremity erythema noted right side greater than left. *Routine Skin Exam Skin: Present intact, dry and warm Detailed Neck Exam: Thyroids Thyroid: Absent bruit Meds Home Medications and Allergies Home Medications Medication Instructions Recorded Confirmed Type citalopram 20 mg tablet 20 mg PO DAILY Depression 04/11/18 06/03/23 History omega-3 fatty acids 1,000 mg 1,000 mg PO DAILY Cholesterol 11/18/19 06/03/23 History capsule carbidopa ER 25 mg-levodopa 100 mg 1 tab PO QID parkinson's disease 12/19/19 06/03/23 History tablet,extended release levothyroxine 75 mcg tablet 75 mcg PO DAILY hypothyroidism 12/19/19 06/03/23 History pantoprazole 40 mg tablet,delayed 40 mg PO DAILY Acid reflux 05/20/22 06/03/23 History release (Protonix) ascorbic acid (vitamin C) 1,000 mg 1 g PO DAILY Supplement 05/27/22 06/03/23 History tablet calcium carbonate 600 mg-vitamin 1 tab PO DAILY Acid reflux 05/27/22 06/03/23 History D3 20 mcg (800 unit) chewable tablet (Caltrate 600 plus D) cyanocobalamin (vitamin B-12) 1,000 mcg IM WEEKLY Supplement 05/27/22 06/03/23 History 1,000 mcg/mL injection solution iron 150 mg-vit C 60 mg-folate 1 1 tab PO DAILY Supplement 05/27/22 06/03/23 History [id number] tablet (Niferex (Sumalate-Quatrefolic)) mirtazapine 15 mg tablet (Remeron) 7.5 mg PO HS Restless leg syndrome 05/27/22 06/03/23 History potassium chloride 20 mEq 20 meq PO DAILY potassium 05/27/22 06/03/23 History tablet,extended release(part/cryst) replacement albuterol sulfate 90 mcg/actuation 2 inh inhalation QID PRN shortness 10/30/22 06/03/23 Rx aerosol inhaler of breath or wheezing 90 days #8.5 grams azelastine 137 mcg (0.1 %) nasal 2 spray intranasal NEEDED PRN 11/30/22 06/03/23 History spray aerosol per MD fluticasone propionate 50 2 spray intranasal DAILY Allergy 11/30/22 06/03/23 History mcg/actuation nasal symptoms spray,suspension (Flonase Allergy Relief) tiotropium 2.5 mcg-olodaterol 2.5 2 puff inhalation DAILY Breathing 11/30/22 06/03/23 History mcg/actuation mist for inhalation problems (Stiolto Respimat) hydrocodone 5 mg-acetaminophen 325 1 tab PO Q8HP PRN Moderate Pain 12/03/22 06/03/23 Rx mg tablet (4-6) #0 tabs tizanidine 4 mg tablet 4 mg PO HSP PRN Muscle Spasm #0 12/03/22 06/03/23 Rx tabs acyclovir 800 mg tablet 300 mg PO Q6H 06/03/23 06/03/23 History apixaban 5 mg tablet (Eliquis) 5 mg PO DAILY 06/03/23 06/03/23 History furosemide 40 mg tablet (Lasix) 40 mg PO DAILY 06/03/23 06/03/23 History nystatin 100,000 unit/gram topical 1 applic topical NEEDED PRN rash 06/03/23 06/03/23 History powder spironolactone 25 mg tablet 25 mg PO DAILY 06/03/23 06/03/23 History New Prescriptions to Start Prescriptions: Allergies Allergy/AdvReac Type Severity Reaction Status Date / Time nitrofurantoin Allergy Unknown Unknown Verified 10/30/22 15:42 [From MACROBID] allergy reaction Penicillins [PENICILLINS] Allergy Unknown Unknown Verified 10/30/22 15:42 allergy reaction Sulfa (Sulfonamide Allergy Unknown Unknown Verified 10/30/22 15:42 Antibiotics) allergy [SULFA (SULFONAMIDE reaction ANTIBIOTICS)] [id number] Reductase AdvReac Severe Verified 10/30/22 15:42 Inhibitor Assessment and Plan *Assessment and plan (1) Pulmonary emboli: Status: Acute Category: Medical Code(s): I26.99 - Other pulmonary embolism without acute cor pulmonale (2) COPD (chronic obstructive pulmonary disease): Status: Acute Category: Medical Code(s): J44.9 - Chronic obstructive pulmonary disease, unspecified (3) Dyspnea on exertion: Status: Chronic Category: Medical Code(s): R06.09 - Other forms of dyspnea (4) Diastolic heart failure: Status: Chronic Category: Medical Code(s): I50.30 - Unspecified diastolic (congestive) heart failure (5) Lower extremity edema: Status: Acute Category: Medical Code(s): R60.0 - Localized edema Plan Bilateral lower extremity edema History of HFpEF Diastolic heart failure -Bilateral lower extremity edema and erythema noted. Right side greater than left. -Bilateral lower extremity ultrasound negative for dvt -Prelim Echo shows normal EF. Historically EF is normal. -Patient was given increased dose of Lasix in ER -Recommend continuing home dose of Aldactone 25 mg p.o. daily and increasing Lasix to 40 mg p.o. twice daily at home x 3 days to help with lower extremity edema. After 3 days patient should resume Lasix 40 mg daily. -Also recommend treatment of lower extremity edema with compression stockings History of unprovoked pulmonary emboli 11/2022 -Lower extremity ultrasound negative for acute DVT -Continue Eliquis 5 mg p.o. twice daily Summary 06/03/2023: Recommended increasing Lasix to 40 mg p.o. twice daily x 3 days to help with lower extremity edema in addition to compression stockings to legs. Please have patient follow-up in cardiology clinic in 1 week for reevaluation.
--- NOTE | 2023-06-03 10:15 | PC.NURSE ---
Pt gone to echo via wheelchair
--- NOTE | 2023-06-03 10:50 | PC.NURSE ---
Pt returned from echo. Weight obtained via standing scale 232.4
[2023-06-03 12:16] LABS: Microscopic, Urine URINE MICROSCOPIC (MICROSCOPIC)
[2023-06-03 12:43] LABS: Appearance,Urine CLEAR (Clear); Bilirubin,Urine Negative (Negative); Blood, Urine Negative (Negative); Color,Urine YELLOW (Yellow); Glucose,Urine (UA) Negative (Negative); Ketones,Urine Negative (Negative); Leukocyte Esterase,Urine Negative (Negative); Nitrate,Urine Negative (Negative); Protein,Urine Negative (Negative); Specific Gravity, Urine 1.015 (1.005-1.030); Urobilinogen,Urine 0.2 EU/dl (0.2)
[2023-06-03 12:57] LABS: Troponin I 0.02 ng/ml (0.00-0.034)
[2023-06-03 13:11] LABS: Bacteria,Urine Trace /lpf; Squamous Epithelial Cell,Urine Occasional #/hpf (0-5); WBC,Urine Occasional #/hpf (0-3)
--- NOTE | 2023-06-03 13:36 | PC.NURSE ---
spoke with Heath in cardiology she is good with pt being D/C with cardiology and urology F/U
== END 2023-06-03 13:59 | disposition home or self-care (01) ==
PROVIDERS: Emergency Provider Emergency Medicine; PCP Internal Medicine
DX: I26.99 Other pulmonary embolism without acute cor pulmonale (principal); J44.9 Chronic obstructive pulmonary disease, unspecified; R06.09 Other forms of dyspnea; I50.30 Unspecified diastolic (congestive) heart failure; R60.0 Localized edema
CPT/HCPCS: 51702; 71045; 80053; 81001; 83735; 83880; 84484; 85025; 93005; 93306; 93970; 96374; 99285